=== PATIENT | female | born 1955 | race Caucasian/White ===

== ENCOUNTER 2017-11-10 14:08 | Inpatient (IN) | payer MEDICARE ==
[~2017-11-10] VITALS: Ht 172.7 cm; Wt 99.9 kg
[2017-11-10 15:07] LABS: BASO % 0 % (0-3); EOS # 0.1 x10^3/uL (0.0-0.7); EOS % 1 % (0-3); HEMATOCRIT 36.5 % (36.0-47.0); HEMOGLOBIN 12.3 g/dL (12.0-15.5); LYMPH # 2.5 x10^3/uL (1.0-4.8); LYMPH % 26 % (24-48); MEAN CORPUSCULAR HEMOGLOBIN 30 pg (25-35); MEAN CORPUSCULAR HGB CONC 34 g/dL (31-37); MEAN CORPUSCULAR VOLUME 88 fL (79-100); MONO # 0.6 x10^3/uL (0.0-1.1); MONO % 6 % (0-9); NEUT # 6.7 x10^3uL (1.8-7.7); NEUT % 68 % (31-73); PLATELET COUNT 219 x10^3/uL (140-400); RED BLOOD COUNT 4.15 x10^6/uL (3.50-5.40); WHITE BLOOD COUNT 9.9 x10^3/uL (4.0-11.0)
[2017-11-10 15:16] LABS: ALBUMIN 3.4 g/dL (3.4-5.0); CALCIUM 8.7 mg/dL (8.5-10.1); GFR 56.7; MAGNESIUM 2.1 mg/dL (1.8-2.4); POTASSIUM 4.2 mmol/L (3.5-5.1); TOTAL BILIRUBIN 0.4 mg/dL (0.2-1.0); TOTAL PROTEIN 6.7 g/dL (6.4-8.2)
--- NOTE | 2017-11-10 15:40 | PHYS DOC ---
Past History Past Medical History: No Pertinent History, Dementia, Depression, High Cholesterol, Hypertension Past Surgical History: No Surgical History Smoking: Non-smoker Alcohol Use: None Drug Use: None Adult General Chief Complaint Chief Complaint: PSYCH EVALUATION HPI HPI 61-year-old female patient presented of the testicle with history of dementia and multiple medical problems brought in for medical clearance. Patient had aggressive behavior and appetite and other staff and resident of care home and her primary care physician decided to send her to [facility]. Patient is not able to give history Review of Systems Review of Systems Unable to obtain because of dementia and uncooperative patient Allergies Allergies Allergies Coded Allergies Type Severity Reaction Last Updated Verified No Known Drug Allergies 11/10/17 No Physical Exam Physical Exam Constitutional: Well nourished, no acute distress, non-toxic appearance. [] HENT: Normocephalic, atraumatic, bilateral external ears normal, oropharynx moist, no oral exudates, nose normal. [] Eyes: PERRLA, EOMI, conjunctiva normal, no discharge. [] Neck: Normal range of motion, no tenderness, supple, no stridor. [] Cardiovascular:Heart rate regular rhythm, no murmur [] Lungs & Thorax: Bilateral breath sounds clear to auscultation [] Abdomen: Bowel sounds normal, soft, no tenderness, no masses, no pulsatile masses. [] Skin: Warm, dry, no erythema, no rash. [] Back: No tenderness, no CVA tenderness. [] Extremities: No tenderness, no cyanosis, no clubbing, ROM intact, no edema. [] Neurologic: Alert, normal motor function, no focal deficits noted. [] Psychologic: Says no to all of the questions, noncooperative Current Patient Data Vital Signs Vital Signs Date Time Temp Pulse Resp B/P (MAP) Pulse Ox O2 Delivery O2 Flow Rate FiO2 11/10/17 14:41 97.8 65 98 Room Air Lab Results Laboratory Tests Test 11/10/17 14:25 White Blood Count 9.9 x10^3/uL (4.0-11.0) Red Blood Count 4.15 x10^6/uL (3.50-5.40) Hemoglobin 12.3 g/dL (12.0-15.5) Hematocrit 36.5 % (36.0-47.0) Mean Corpuscular Volume 88 fL (79-100) Mean Corpuscular Hemoglobin 30 pg (25-35) Mean Corpuscular Hemoglobin Concent 34 g/dL (31-37) Red Cell Distribution Width 14.0 % (11.5-14.5) Platelet Count 219 x10^3/uL (140-400) Neutrophils (%) (Auto) 68 % (31-73) Lymphocytes (%) (Auto) 26 % (24-48) Monocytes (%) (Auto) 6 % (0-9) Eosinophils (%) (Auto) 1 % (0-3) Basophils (%) (Auto) 0 % (0-3) Neutrophils # (Auto) 6.7 x10^3uL (1.8-7.7) Lymphocytes # (Auto) 2.5 x10^3/uL (1.0-4.8) Monocytes # (Auto) 0.6 x10^3/uL (0.0-1.1) Eosinophils # (Auto) 0.1 x10^3/uL (0.0-0.7) Basophils # (Auto) 0.0 x10^3/uL (0.0-0.2) Sodium Level 143 mmol/L (136-145) Potassium Level 4.2 mmol/L (3.5-5.1) Chloride Level 106 mmol/L (98-107) Carbon Dioxide Level 29 mmol/L (21-32) Anion Gap 8 (6-14) Blood Urea Nitrogen 17 mg/dL (7-20) Creatinine 1.0 mg/dL (0.6-1.0) Estimated GFR (Cockcroft-Gault) 56.7 BUN/Creatinine Ratio 17 (6-20) Glucose Level 92 mg/dL (70-99) Calcium Level 8.7 mg/dL (8.5-10.1) Magnesium Level 2.1 mg/dL (1.8-2.4) Total Bilirubin 0.4 mg/dL (0.2-1.0) Aspartate Amino Transferase (AST) 19 U/L (15-37) Alanine Aminotransferase (ALT) 31 U/L (14-59) Alkaline Phosphatase 109 U/L (46-116) Total Protein 6.7 g/dL (6.4-8.2) Albumin 3.4 g/dL (3.4-5.0) Albumin/Globulin Ratio 1.0 (1.0-1.7) EKG EKG [Cage interpreted by me. EKG at 1449 showed normal sinus rhythm at 67, no ST and T-wave abnormality, normal [place] and QT intervals] Radiology/Procedures Radiology/Procedures [] Course & Med Decision Making Course & Med Decision Making Pertinent Labs reviewed. (See chart for details) Social patient in ER showed 61-year-old female patient sent to ER for medical clearance for psych admission. Patient was uncooperative without any distress. Patient moved all extremities and able to talk but answered no to all of the question. Labs and EKG was unremarkable except for UTI. One dose of Bactrim in ER was given. [] Dragon Disclaimer Dragon Disclaimer This electronic medical record was generated, in whole or in part, using a voice recognition dictation system. Departure Departure: Impression: Primary Impression: Medical clearance for psychiatric admission Additional Impression: UTI (urinary tract infection) Disposition: 02 XFER T-[facility] (At 1654) Condition: STABLE Referrals: TYLER TRENT DO (PCP) Problem Qualifiers JESSICA GOMEZ MD Nov 10, 2017 15:40
[2017-11-10 16:19] LABS: BACTERIA,URINE 0 /HPF (0-FEW); BILIRUBIN,URINE NEG (NEG); CLARITY,URINE CLEAR; COLOR,URINE STRAW; GLUCOSE,URINE NEG (NEG); NITRITE,URINE NEG (NEG); SQUAMOUS EPITHELIAL CELL,UR FEW /LPF; UROBILINOGEN,URINE 2 mg/dL (0.2 mg/dL)
--- NOTE | 2017-11-10 16:26 | EKG ---
[address] [address] Test Date: 2017-11-10 Test Time: 14:49:53 Pat Name: BRENDA FIELD Department: Room: Gender: F [employer] Operations Agent: STEPHON : 1955 Requested By: JESSICA GOMEZ Order Number: [id number] Reading MD: Luis Chaudhary Measurements Intervals Grant Rate: 67 P: 41 LA: 176 QRS: 9 QRSD: 76 T: 24 QT: 392 QTc: 417 Interpretive Statements SINUS RHYTHM NORMAL ECG Electronically Signed On 11-19-2017 16:40:05 MECHANICAL TEST TECHNICIAN by Luis Chaudhary
[2017-11-10] MEDS ORDERED: SMZ/TMP 800/160MG TABLET. PO ONE ×2 (16:56→17:00)
[2017-11-10 17:30] VITALS: BP 113/64
[2017-11-10] MEDS ORDERED: ACETAMINOPHEN 325 MG TABLET PO PRN ×3 (17:30→18:30)
[2017-11-10] MEDS ORDERED: METHYL SALICYLATE/MENTHOL TOPICAL OINTMENT 29GM TUBE. TP PRN (17:30)
[2017-11-10] MEDS ORDERED: MAGNESIUM HYDROXIDE 2,400 MG/30 ML ORAL.SUSP. PO PRN (17:30)
[2017-11-10] MEDS ORDERED: MAG HYDROX/AL HYDROX/SIMETH 30 ML ORAL.SUSP PO PRN (17:30)
[2017-11-10] MEDS ORDERED: LISI-334 PO (17:43)
[2017-11-10] MEDS ORDERED: CITA40TA12 PO (17:43)
[2017-11-10] MEDS ORDERED: DONE10TA7 PO (17:43)
[2017-11-10] MEDS ORDERED: MEMA10TA PO (17:43)
[2017-11-10] MEDS ORDERED: ATOR10TA60 PO (17:43)
[2017-11-10] MEDS ORDERED: MIRT15TA3 PO (17:43)
[2017-11-10] MEDS ORDERED: BUSP10TA PO (17:43)
[2017-11-10] MEDS ORDERED: LORA0.5T96 PO (17:49)
[2017-11-10] MEDS ORDERED: MENT3.5O TP (17:49)
[2017-11-10] MEDS ORDERED: ACET325T9 PO (17:49)
--- NOTE | 2017-11-10 18:51 | PDOC ---
Exam Note: Saeed Note: Please also refer to the separate dictated note~for this date of service dictated separately.~Patient seen individually. Discussed the patient with Nursing staff reviewed the chart.~Reviewed interim history and current functioning. Reviewed vital signs,~Labs/ Radiology~and current medications noted below. Continue current treatment with the changes noted in the dictated addendum note Assessment: Vital Signs: Vital Signs Date Time Temp Pulse Resp B/P (MAP) Pulse Ox O2 Delivery O2 Flow Rate FiO2 11/10/17 17:30 97.8 73 18 113/64 (80) 96 11/10/17 16:37 Room Air Labs: Laboratory Tests Test 11/10/17 14:25 11/10/17 15:26 White Blood Count 9.9 x10^3/uL (4.0-11.0) Red Blood Count 4.15 x10^6/uL (3.50-5.40) Hemoglobin 12.3 g/dL (12.0-15.5) Hematocrit 36.5 % (36.0-47.0) Mean Corpuscular Volume 88 fL (79-100) Mean Corpuscular Hemoglobin 30 pg (25-35) Mean Corpuscular Hemoglobin Concent 34 g/dL (31-37) Red Cell Distribution Width 14.0 % (11.5-14.5) Platelet Count 219 x10^3/uL (140-400) Neutrophils (%) (Auto) 68 % (31-73) Lymphocytes (%) (Auto) 26 % (24-48) Monocytes (%) (Auto) 6 % (0-9) Eosinophils (%) (Auto) 1 % (0-3) Basophils (%) (Auto) 0 % (0-3) Neutrophils # (Auto) 6.7 x10^3uL (1.8-7.7) Lymphocytes # (Auto) 2.5 x10^3/uL (1.0-4.8) Monocytes # (Auto) 0.6 x10^3/uL (0.0-1.1) Eosinophils # (Auto) 0.1 x10^3/uL (0.0-0.7) Basophils # (Auto) 0.0 x10^3/uL (0.0-0.2) Sodium Level 143 mmol/L (136-145) Potassium Level 4.2 mmol/L (3.5-5.1) Chloride Level 106 mmol/L (98-107) Carbon Dioxide Level 29 mmol/L (21-32) Anion Gap 8 (6-14) Blood Urea Nitrogen 17 mg/dL (7-20) Creatinine 1.0 mg/dL (0.6-1.0) Estimated GFR (Cockcroft-Gault) 56.7 BUN/Creatinine Ratio 17 (6-20) Glucose Level 92 mg/dL (70-99) Calcium Level 8.7 mg/dL (8.5-10.1) Magnesium Level 2.1 mg/dL (1.8-2.4) Total Bilirubin 0.4 mg/dL (0.2-1.0) Aspartate Amino Transferase (AST) 19 U/L (15-37) Alanine Aminotransferase (ALT) 31 U/L (14-59) Alkaline Phosphatase 109 U/L (46-116) Total Protein 6.7 g/dL (6.4-8.2) Albumin 3.4 g/dL (3.4-5.0) Albumin/Globulin Ratio 1.0 (1.0-1.7) Urine Collection Type U cath Urine Color Straw Urine Clarity Clear Urine pH 5.5 Urine Specific Evans 1.015 Urine Protein Neg (NEG-TRACE) Urine Glucose (UA) Neg mg/dL (NEG) Urine Ketones (Stick) Neg mg/dL (NEG) Urine Blood Mod (NEG) Urine Nitrite Neg (NEG) Urine Bilirubin Neg (NEG) Urine Urobilinogen Dipstick 2 mg/dL (0.2 mg/dL) Urine Leukocyte Esterase Small (NEG) Urine RBC 6-10 /HPF (0-2) Urine WBC 11-20 /HPF (0-4) Urine Squamous Epithelial Cells Few /LPF Urine Bacteria 0 /HPF (0-FEW) Urine Mucus Slight /LPF Current Medications: Meds: Current Medications Trimethoprim/ Sulfamethoxazole (Bactrim Ds) 1 tab 1X ONCE PO Last administered on 11/10/17t 16:57; Start 11/10/17 at 17:00; Stop 11/10/17 at 17 :01; Status DC Trimethoprim/ Sulfamethoxazole (Bactrim Ds) 1 tab STK-MED ONCE PO ; Start 11/10 at 16:56; Stop 11/10/17 at 16:57; Status DC Acetaminophen (Tylenol) 650 mg PRN Q6HRS PRN PO PAIN / TEMP; Start 11/10/17 at 17:30 Multi-Ingredient Ointment (Analgesic [place]) 1 lian PRN QID PRN TP MUSCLE PAIN; Start 11/10/17 at 17:30 Al Hydroxide/Mg Hydroxide (Mylanta Plus Xs) 15 ml PRN AFTMEALHC PRN PO DYSPEPSIA; Start 11/10/17 at 17:30 Magnesium Hydroxide (Milk Of Magnesia) 2,400 mg PRN QHS PRN PO CONSTIPATION; Start 11/10/17 at 17:30 Acetaminophen (Tylenol) take 1-2 tablets PRN ... PRN QID PRN PO PAIN; Start at 18:00; Stop 11/10/17 at 18:24; Status DC Atorvastatin Calcium (Lipitor) 10 mg QHS PO ; Start 11/10/17 at 21:00 Buspirone HCl (Buspar) 10 mg BID PO ; Start 11/10/17 at 21:00 Donepezil HCl (Aricept) 10 mg DAILY PO ; Start 11/11/17 at 09:00 Lisinopril (Prinivil) 20 mg DAILY PO ; Start 11/11/17 at 09:00 Lorazepam (Ativan) 0.5 mg PRN Q6HRS PRN PO AGITATION; Start 11/10/17 at 18:00 Memantine (Namenda) 10 mg BID PO ; Start 11/10/17 at 21:00 Mirtazapine (Remeron) 15 mg QHS PO ; Start 11/10/17 at 21:00 Citalopram Hydrobromide (CeleXA) 40 mg DAILY PO ; Start 11/11/17 at 09:00; Stop 11/11/17 at 09:00; Status DC Acetaminophen (Tylenol) 325 mg PRN Q6HRS PRN PO PAIN; Start 11/10/17 at 18:30 Sertraline HCl (Zoloft) 50 mg DAILY PO ; Start 11/11/17 at 09:00; Status UNV Active Scripts Active Reported Ativan (Lorazepam) 0.5 Mg Tablet 0.5 Mg PO PRN Q6HRS PRN Calmoseptine Ointment (Menthol/Zinc Oxide) 3.5 Gm Oint.pack 3.5 Gm TP PRN Tylenol (Acetaminophen) 325 Mg Tablet 1-2 Tab PO PRN QID PRN Mirtazapine 15 Mg Tablet 15 Mg PO QHS Namenda (Memantine Hcl) 10 Mg Tablet 10 Mg PO BID Buspirone Hcl 10 Mg Tablet 10 Mg PO BID Lisinopril 20 Mg Tablet 20 Mg PO DAILY Donepezil Hcl 10 Mg Tablet 10 Mg PO DAILY Celexa (Citalopram Hydrobromide) 40 Mg Tablet 40 Mg PO DAILY Atorvastatin Calcium 10 Mg Tablet 10 Mg PO QHS I have reviewed the current psychotropics carefully including drug interactions. Risk benefit ratio favors no change other than as noted in my dictated progress note. Diagnosis: Problems: (1) Anxiety disorder (2) Dementia of the Alzheimer's type with early onset with behavioral disturbance (3) Dementia in Alzheimer's disease with delusions (4) Dementia, vascular, with depression (5) Dementia, vascular, with delusions (6) Impulse control disorder JAKUB MURRAY MD Nov 10, 2017 18:51
--- NOTE | 2017-11-10 19:14 | HP ---
ADMIT DATE: 11/10/2017 PSYCHIATRIC ADMISSION HISTORY AND EVALUATION This note covers elements not covered in my initial note 11/10/2017. IDENTIFYING DATA: The patient is a 61-year-old female referred to us from [facility] where she has been residing for about 3 months. The patient is referred by her primary care physician, Leonardo Patterson DO, and psychiatrist, Mariah Moore MD, on account of worsening aggression, yelling, slapping people after she ripped a mattress off the bed. She is cursing, slapping herself, refusing medications, hitting people around her, totally unprovoked. Symptoms have been worsening for about 4 days. She has failed outpatient psychiatric intervention with Dr. Moore since 06/2017, referred for inpatient psychiatric stabilization. CHIEF COMPLAINT: "No." The patient is extremely confused, oriented, perhaps to herself, unable to tell me even her last name though she responded to Leydi. HISTORY OF PRESENT ILLNESS: The patient has a history of early onset dementia, but past worked up on this is unclear. She has been at an apartment initially, but for the past 3 months she has been at the nursing facility. As noted, behaviors have been worsening for the past 4 days with marked mood lability, paranoia, delusions, agitation, aggression sleep and appetite changes. No clear suicidal or homicidal ideation, no clear history of bipolar disorder. PAST PSYCHIATRIC HISTORY: As above. MEDICAL HISTORY: Hyperlipidemia, hypertension. ACCU-CHEKS: None. CODE STATUS: DNR. DRUG ALLERGIES: Negative. DIET: Regular, ambulates up ad ron. CURRENT PSYCHOTROPICS: Celexa 40 mg a day, Aricept 10 mg a day, BuSpar 10 mg b.i.d., Namenda 10 mg b.i.d., Remeron 15 mg at bedtime, Ativan 0.5 mg q. 6 hours p.r.n. anxiety. FAMILY HISTORY: Noncontributory. SOCIAL HISTORY: No alcohol, drug abuse, physical, sexual or elder abuse history is noted. Not known to be a perpetrator. Reaction to hospitalization, the patient is oblivious of this assets, stable living at the above facility, supportive family. MENTAL STATUS EXAMINATION: The patient was seen individually evening of 11/10/2017. The patient is oriented to herself, rambling in her speech. Insight, judgment, recent and remote memory, attention, concentration, fund of knowledge poor consistent with her diagnosis. She appears somewhat depressed, withdrawn, suspicious at times, but no active hallucinations noted. IMPRESSION: Major neurocognitive disorder, Alzheimer, vascular with depression, delusion, behavioral disturbance; anxiety disorder, unspecified; impulse control disorder, unspecified. PLAN: Admit to Geropsychiatry Unit at [facility], request Dr. Benavides and Dr. Greer to follow the patient medically. We will have a Neurology consult, Dr. Gee, given the patient's young age, to see if there is any reversible cause of her dementia. We will have a CT head as well. Reportedly, according to the sister, the patient has had seizure-like episodes on Seroquel and we will try and avoid this. Change Celexa to Zoloft 50 mg a day. Continue Aricept, BuSpar, Namenda, Remeron along with the Ativan p.r.n. Consider Depakote as a mood stabilizer. Further changes in psychotropics will be determined depending on how she responds to the initial changes. MAN Ke MURRAY MD DR: CHRISTINA/elizabeth JOB#: [id number] / [id number]
[2017-11-10] MEDS: ATORVASTATIN CALCIUM 10 MG TABLET. PO SCH (20:09)
[2017-11-10] MEDS: MIRTAZAPINE 15 MG TABLET PO SCH (20:09)
[2017-11-10] MEDS: MEMANTINE 10 MG TABLET. PO SCH (20:09)
[2017-11-10] MEDS: busPIRone 10 MG TABLET. PO SCH (20:09)
[2017-11-11 05:43] VITALS: BP 125/88
[2017-11-11] MEDS: LORazepam 0.5 MG TABLET PO PRN (06:22)
[2017-11-11 07:37] LABS: BASO # 0.1 x10^3/uL (0.0-0.2); BASO % 1 % (0-3); EOS % 1 % (0-3); HEMATOCRIT 39.9 % (36.0-47.0); HEMOGLOBIN 13.2 g/dL (12.0-15.5); LYMPH # 1.7 x10^3/uL (1.0-4.8); LYMPH % 17 % (24-48); MEAN CORPUSCULAR HEMOGLOBIN 29 pg (25-35); MEAN CORPUSCULAR HGB CONC 33 g/dL (31-37); MEAN CORPUSCULAR VOLUME 89 fL (79-100); MONO # 0.5 x10^3/uL (0.0-1.1); MONO % 5 % (0-9); NEUT # 7.4 x10^3uL (1.8-7.7); NEUT % 76 % (31-73); PLATELET COUNT 229 x10^3/uL (140-400); RED BLOOD COUNT 4.51 x10^6/uL (3.50-5.40); RED CELL DISTRIBUTION WIDTH 14.2 % (11.5-14.5); WHITE BLOOD COUNT 9.7 x10^3/uL (4.0-11.0)
[2017-11-11 07:56] LABS: ALBUMIN 3.8 g/dL (3.4-5.0); ALBUMIN/GLOBULIN RATIO 1.1 (1.0-1.7); CREATININE 1.1 mg/dL (0.6-1.0); GFR 50.8; MAGNESIUM 2.1 mg/dL (1.8-2.4); POTASSIUM 3.8 mmol/L (3.5-5.1); TOTAL BILIRUBIN 0.5 mg/dL (0.2-1.0); TOTAL PROTEIN 7.3 g/dL (6.4-8.2)
--- NOTE | 2017-11-11 08:08 | RAD ---
Indication: Dementia. Axial imaging through the brain was performed without contrast. No prior studies are available for comparison. Ventricular size and sulcal pattern are prominent consistent with cerebral atrophy. No sulcal effacement is seen. There is no midline shift. No acute intra-axial or extra-axial hemorrhage is detected. Cisterns are patent. The visualized paranasal sinuses are clear. Impression: Cerebral atrophy. No acute intracranial process is detected. PQRS Compliance Statement: One or more of the following individualized dose reduction techniques were utilized for this examination: 1. Automated exposure control 2. Adjustment of the mA and/or kV according to patient size 3. Use of iterative reconstruction technique
[2017-11-11] MEDS ORDERED: CITALOPRAM 20 MG TABLET. PO SCH (09:00)
[2017-11-11] MEDS: DONEPEZIL HCL 10 MG TABLET PO SCH (09:49)
[2017-11-11] MEDS: busPIRone 10 MG TABLET. PO SCH ×2 (09:49→19:07)
[2017-11-11] MEDS: MEMANTINE 10 MG TABLET. PO SCH ×2 (09:49→19:07)
[2017-11-11] MEDS: SERTRALINE 50 MG TABLET. PO SCH (09:50)
[2017-11-11] MEDS: LISINOPRIL 20 MG TABLET PO SCH (09:50)
[2017-11-11 14:01] LABS: THYROID STIM HORMONE (TSH) 2.008 uIU/mL (0.358-3.740)
[2017-11-11 15:56] VITALS: BP 107/63
[2017-11-11] MEDS ORDERED: CHOLECALCIFEROL (VITAMIN D3) 50,000 UNIT CAPSULE PO SCH (18:00)
[2017-11-11] MEDS: MIRTAZAPINE 15 MG TABLET PO SCH (19:07)
[2017-11-11] MEDS: ATORVASTATIN CALCIUM 10 MG TABLET. PO SCH (19:07)
--- NOTE | 2017-11-11 20:02 | PDOC ---
Exam Note: Saeed Note: Please also refer to the separate dictated note~for this date of service dictated separately.~Patient seen individually. Discussed the patient with Nursing staff reviewed the chart.~Reviewed interim history and current functioning. Reviewed vital signs,~Labs/ Radiology~and current medications noted below. Continue current treatment with the changes noted in the dictated addendum note Assessment: Vital Signs: Vital Signs Date Time Temp Pulse Resp B/P (MAP) Pulse Ox O2 Delivery O2 Flow Rate FiO2 11/11/17 15:56 98.6 84 20 107/63 (78) 96 Room Air I&O Intake and Output 11/11/17 07:00 Intake Total 300 ml Balance 300 ml Intake Oral 300 ml # Bowel Movements 1 Labs: Laboratory Tests Test 11/11/17 07:20 White Blood Count 9.7 x10^3/uL (4.0-11.0) Red Blood Count 4.51 x10^6/uL (3.50-5.40) Hemoglobin 13.2 g/dL (12.0-15.5) Hematocrit 39.9 % (36.0-47.0) Mean Corpuscular Volume 89 fL (79-100) Mean Corpuscular Hemoglobin 29 pg (25-35) Mean Corpuscular Hemoglobin Concent 33 g/dL (31-37) Red Cell Distribution Width 14.2 % (11.5-14.5) Platelet Count 229 x10^3/uL (140-400) Neutrophils (%) (Auto) 76 % (31-73) H Lymphocytes (%) (Auto) 17 % (24-48) L Monocytes (%) (Auto) 5 % (0-9) Eosinophils (%) (Auto) 1 % (0-3) Basophils (%) (Auto) 1 % (0-3) Neutrophils # (Auto) 7.4 x10^3uL (1.8-7.7) Lymphocytes # (Auto) 1.7 x10^3/uL (1.0-4.8) Monocytes # (Auto) 0.5 x10^3/uL (0.0-1.1) Eosinophils # (Auto) 0.0 x10^3/uL (0.0-0.7) Basophils # (Auto) 0.1 x10^3/uL (0.0-0.2) Sodium Level 143 mmol/L (136-145) Potassium Level 3.8 mmol/L (3.5-5.1) Chloride Level 104 mmol/L (98-107) Carbon Dioxide Level 30 mmol/L (21-32) Anion Gap 9 (6-14) Blood Urea Nitrogen 17 mg/dL (7-20) Creatinine 1.1 mg/dL (0.6-1.0) H Estimated GFR (Cockcroft-Gault) 50.8 BUN/Creatinine Ratio 15 (6-20) Glucose Level 114 mg/dL (70-99) H Calcium Level 9.0 mg/dL (8.5-10.1) Magnesium Level 2.1 mg/dL (1.8-2.4) Total Bilirubin 0.5 mg/dL (0.2-1.0) Aspartate Amino Transferase (AST) 25 U/L (15-37) Alanine Aminotransferase (ALT) 38 U/L (14-59) Alkaline Phosphatase 114 U/L (46-116) Total Protein 7.3 g/dL (6.4-8.2) Albumin 3.8 g/dL (3.4-5.0) Albumin/Globulin Ratio 1.1 (1.0-1.7) Triglycerides Level 91 mg/dL (0-150) Cholesterol Level 151 mg/dL (0-200) LDL Cholesterol, Calculated 86 mg/dL (0-100) VLDL Cholesterol, Calculated 18 mg/dL (0-40) Non-HDL Cholesterol Calculated 104 mg/dL (0-129) HDL Cholesterol 47 mg/dL (40-60) Cholesterol/HDL Ratio 3.0 25-Hydroxy Vitamin D Total 20.5 ng/mL (30-100) L Thyroid Stimulating Hormone (TSH) 2.008 uIU/mL (0.358-3.740) Current Medications: Meds: Current Medications Trimethoprim/ Sulfamethoxazole (Bactrim Ds) 1 tab 1X ONCE PO Last administered on 11/10/17t 16:57; Start 11/10/17 at 17:00; Stop 11/10/17 at 17 :01; Status DC Trimethoprim/ Sulfamethoxazole (Bactrim Ds) 1 tab STK-MED ONCE PO ; Start 11/10 at 16:56; Stop 11/10/17 at 16:57; Status DC Acetaminophen (Tylenol) 650 mg PRN Q6HRS PRN PO PAIN / TEMP; Start 11/10/17 at 17:30 Multi-Ingredient Ointment (Analgesic [place]) 1 lian PRN QID PRN TP MUSCLE PAIN; Start 11/10/17 at 17:30 Al Hydroxide/Mg Hydroxide (Mylanta Plus Xs) 15 ml PRN AFTMEALHC PRN PO DYSPEPSIA; Start 11/10/17 at 17:30 Magnesium Hydroxide (Milk Of Magnesia) 2,400 mg PRN QHS PRN PO CONSTIPATION; Start 11/10/17 at 17:30 Acetaminophen (Tylenol) take 1-2 tablets PRN ... PRN QID PRN PO PAIN; Start at 18:00; Stop 11/10/17 at 18:24; Status DC Atorvastatin Calcium (Lipitor) 10 mg QHS PO Last administered on 11/11/17 19: 07; Start 11/10/17 at 21:00 Buspirone HCl (Buspar) 10 mg BID PO Last administered on 11/11/17 19:07; Start 11/10/17 at 21:00 Donepezil HCl (Aricept) 10 mg DAILY PO Last administered on 11/11/17 09:49; Start 11/11/17 at 09:00 Lisinopril (Prinivil) 20 mg DAILY PO Last administered on 11/11/17 09:50; Start 11/11/17 at 09:00 Lorazepam (Ativan) 0.5 mg PRN Q6HRS PRN PO AGITATION Last administered on 11/11 06:22; Start 11/10/17 at 18:00 Memantine (Namenda) 10 mg BID PO Last administered on 11/11/17 19:07; Start 11/10/17 at 21:00 Mirtazapine (Remeron) 15 mg QHS PO Last administered on 11/11/17 19:07; Start 11/10/17 at 21:00 Citalopram Hydrobromide (CeleXA) 40 mg DAILY PO ; Start 11/11/17 at 09:00; Stop 11/11/17 at 09:00; Status DC Acetaminophen (Tylenol) 325 mg PRN Q6HRS PRN PO PAIN; Start 11/10/17 at 18:30 Sertraline HCl (Zoloft) 50 mg DAILY PO Last administered on 11/11/17t 09:50; Start 11/11/17 at 09:00 Vitamin D (Vitamin D3) 50,000 unit WEEKLY PO ; Start 11/11/17 at 18:00; Stop 11/11/17 at 18:20; Status DC Vitamin D (Vitamin D3) 50,000 unit WEEKLY PO ; Start 11/12/17 at 09:00 Active Scripts Active Reported Ativan (Lorazepam) 0.5 Mg Tablet 0.5 Mg PO PRN Q6HRS PRN Calmoseptine Ointment (Menthol/Zinc Oxide) 3.5 Gm Oint.pack 3.5 Gm TP PRN Tylenol (Acetaminophen) 325 Mg Tablet 1-2 Tab PO PRN QID PRN Mirtazapine 15 Mg Tablet 15 Mg PO QHS Namenda (Memantine Hcl) 10 Mg Tablet 10 Mg PO BID Buspirone Hcl 10 Mg Tablet 10 Mg PO BID Lisinopril 20 Mg Tablet 20 Mg PO DAILY Donepezil Hcl 10 Mg Tablet 10 Mg PO DAILY Celexa (Citalopram Hydrobromide) 40 Mg Tablet 40 Mg PO DAILY Atorvastatin Calcium 10 Mg Tablet 10 Mg PO QHS I have reviewed the current psychotropics carefully including drug interactions. Risk benefit ratio favors no change other than as noted in my dictated progress note. Diagnosis: Problems: (1) Anxiety disorder (2) Impulse control disorder (3) Dementia, vascular, with depression (4) Dementia, vascular, with delusions (5) Dementia in Alzheimer's disease with delusions (6) Dementia of the Alzheimer's type with early onset with behavioral disturbance JAKUB MURRAY MD Nov 11, 2017 20:02
[2017-11-11 20:07] LABS: T3 TOTAL 114 ng/dL (71-180); THYROXINE 7.1 ug/dL (4.5-12.0)
[2017-11-12 03:16] LABS: HEMOGLOBIN A1C 5.2 % (4.8-5.6)
[2017-11-12 05:41] VITALS: BP 115/72
[2017-11-12] MEDS: busPIRone 10 MG TABLET. PO SCH ×2 (07:35→19:26)
[2017-11-12] MEDS: MEMANTINE 10 MG TABLET. PO SCH ×2 (07:36→19:26)
[2017-11-12] MEDS: SERTRALINE 50 MG TABLET. PO SCH (07:36)
[2017-11-12] MEDS: DONEPEZIL HCL 10 MG TABLET PO SCH (07:36)
[2017-11-12] MEDS: LISINOPRIL 20 MG TABLET PO SCH (07:36)
[2017-11-12] MEDS: CHOLECALCIFEROL (VITAMIN D3) 50,000 UNIT CAPSULE PO SCH (07:37)
--- NOTE | 2017-11-12 12:47 | CONS ---
DATE OF CONSULTATION: REASON FOR CONSULTATION: Medical management. HISTORY OF PRESENT ILLNESS: The patient is a 61-year-old female patient, a resident at [facility] who was admitted to [facility] on account of being aggressive, yelling, slapping people, ripped mattresses off the bed, cursing, slapping self, refusing medication, hitting people, unprovoked; all this started about 4 days ago and all this in a background of dementia. She is here for inpatient psychiatric stabilization. The patient is alert, awake, her answer seemed to be at times appropriate and most time seemed to be inappropriate. PAST MEDICAL HISTORY: Significant for hypertension, hyperlipidemia. PAST PSYCHIATRIC HISTORY: Significant for anxiety, depression, and dementia. PAST SURGICAL HISTORY: Unremarkable. ALLERGIES: She has no known drug allergies. MEDICATIONS: She is currently on the following medication, acetaminophen 650 mg 4 times a day, atorvastatin 10 mg at bedtime, buspirone 10 mg b.i.d., citalopram hydrobromide for Celexa 40 mg once a day, Aricept 10 mg once a day, lisinopril 20 mg once a day, lorazepam 0.5 mg every 6 hours, Namenda 10 mg twice a day and mirtazapine 15 mg at bedtime. FAMILY HISTORY: Noncontributory. SOCIAL HISTORY: She used to live with her sister with caregivers; however, she is now residing at [facility]. She apparently does not smoke, drink alcohol or use recreational drugs. REVIEW OF SYSTEMS: Unobtainable. PHYSICAL EXAMINATION: GENERAL: When I examined her this afternoon, she was sitting comfortably in her chair, eating her supper without difficulty. There were no pallor, jaundice, cyanosis, or thyromegaly. No jugular venous distension. No limb edema. VITAL SIGNS: Her heart rate was 84, blood pressure was 107/63, temperature was 98.6, respiratory rate was 20, and oxygen saturation was 96% on room air. The rest of clinical exams seemed to be unremarkable. LABORATORY DATA: Her lab work showed her serum sodium to be 143, potassium 4.2, chloride 106, bicarbonate 29, anion gap of 8, BUN 17, creatinine 1, estimated GFR was 57 mL per minute. Her glucose was 92, calcium was 8.7, magnesium 2.1. Total bilirubin, AST, ALT, alkaline phosphatase were normal. Total protein was 6.7, albumin was 3.4. Her white cell count was 9900, hemoglobin 12.3, hematocrit 36.5, MCV 88 and platelet count 219,000 with normal manual differential. Her urinalysis showed the urine was straw colored, clear with a pH of 5.5, specific gravity 1.015. The urine was negative for protein, glucose, ketones, blood, nitrite, small amount of leukocyte esterase. There were 6-10 rbc's, 11-20 wbc's, no bacteria. Her urine culture showed no growth after 18-24 hours. DIAGNOSTIC DATA: Her CT scan of the head without contrast showed the ventricular size and sulcal pattern are prominent, consistent with cerebral atrophy. No sulcal effacement is seen. There is no midline shift, no acute intraaxial or extraaxial hemorrhage detected. Cisterns are patent. The visualized paranasal sinuses are clear. IMPRESSION: In summary, this is a 61-year-old female patient with a past psychiatric history significant for dementia, who is currently residing at [facility] and who was admitted on the account of worsening aggression, yelling, slapping people, after she ripped mattress off the bed. She is cursing, slapping herself, refusing medication, hitting people around her, totally unprovoked. Her symptom has been worsening over the last 4 days and she has failed outpatient psychiatric stabilization and was admitted [facility] for inpatient psychiatric stabilization. Her vital signs are stable. Her lab works are also well within normal range. Her 25-hydroxy vitamin D is low at 20.5 and I did start her on cholecalciferol 50,000 International Units once a week. Her serum iron and total iron binding capacity as well as iron saturation finding consistent with anemia of chronic disease. Urinalysis showed that she has 11-20 wbc's; however, the culture was negative. All in all, the patient seems to be stable medically. I will obviously follow all the pending test and make a necessary recommendation. Thank you, Dr. Simon for allowing me to participate in the care of this patient. HERNANDEZ SQUIRES MD DR: MICHAEL/elizabeth JOB#: [id number] / [id number]
[2017-11-12 16:11] VITALS: BP 118/76
[2017-11-12] MEDS: MIRTAZAPINE 15 MG TABLET PO SCH (19:26)
[2017-11-12] MEDS: ATORVASTATIN CALCIUM 10 MG TABLET. PO SCH (19:26)
[2017-11-12] MEDS: traZODone 50 MG TABLET. PO PRN (19:50)
--- NOTE | 2017-11-12 22:14 | PDOC ---
Exam Note: Saeed Note: Please also refer to the separate dictated note~for this date of service dictated separately.~Patient seen individually. Discussed the patient with Nursing staff reviewed the chart.~Reviewed interim history and current functioning. Reviewed vital signs,~Labs/ Radiology~and current medications noted below. Continue current treatment with the changes noted in the dictated addendum note Assessment: Vital Signs: Vital Signs Date Time Temp Pulse Resp B/P (MAP) Pulse Ox O2 Delivery O2 Flow Rate FiO2 11/12/17 16:11 98.3 75 17 118/76 (90) 99 11/11/17 15:56 Room Air I&O Intake and Output 11/12/17 07:00 Intake Total 780 ml Balance 780 ml Intake Oral 780 ml Current Medications: Meds: Current Medications Trimethoprim/ Sulfamethoxazole (Bactrim Ds) 1 tab 1X ONCE PO Last administered on 11/10/17 16:57; Start 11/10/17 at 17:00; Stop 11/10/17 at 17 :01; Status DC Trimethoprim/ Sulfamethoxazole (Bactrim Ds) 1 tab STK-MED ONCE PO ; Start 11/10 at 16:56; Stop 11/10/17 at 16:57; Status DC Acetaminophen (Tylenol) 650 mg PRN Q6HRS PRN PO PAIN / TEMP; Start 11/10/17 at 17:30 Multi-Ingredient Ointment (Analgesic [place]) 1 lian PRN QID PRN TP MUSCLE PAIN; Start 11/10/17 at 17:30 Al Hydroxide/Mg Hydroxide (Mylanta Plus Xs) 15 ml PRN AFTMEALHC PRN PO DYSPEPSIA; Start 11/10/17 at 17:30 Magnesium Hydroxide (Milk Of Magnesia) 2,400 mg PRN QHS PRN PO CONSTIPATION; Start 11/10/17 at 17:30 Acetaminophen (Tylenol) take 1-2 tablets PRN ... PRN QID PRN PO PAIN; Start at 18:00; Stop 11/10/17 at 18:24; Status DC Atorvastatin Calcium (Lipitor) 10 mg QHS PO Last administered on 11/12/17 19: 26; Start 11/10/17 at 21:00 Buspirone HCl (Buspar) 10 mg BID PO Last administered on 11/12/17 19:26; Start 11/10/17 at 21:00 Donepezil HCl (Aricept) 10 mg DAILY PO Last administered on 11/12/17 07:36; Start 11/11/17 at 09:00 Lisinopril (Prinivil) 20 mg DAILY PO Last administered on 11/12/17 07:36; Start 11/11/17 at 09:00 Lorazepam (Ativan) 0.5 mg PRN Q6HRS PRN PO AGITATION Last administered on 11/11 06:22; Start 11/10/17 at 18:00 Memantine (Namenda) 10 mg BID PO Last administered on 11/12/17 19:26; Start 11/10/17 at 21:00 Mirtazapine (Remeron) 15 mg QHS PO Last administered on 11/12/17 19:26; Start 11/10/17 at 21:00 Citalopram Hydrobromide (CeleXA) 40 mg DAILY PO ; Start 11/11/17 at 09:00; Stop 11/11/17 at 09:00; Status DC Acetaminophen (Tylenol) 325 mg PRN Q6HRS PRN PO PAIN; Start 11/10/17 at 18:30 Sertraline HCl (Zoloft) 50 mg DAILY PO Last administered on 11/12/17 07:36; Start 11/11/17 at 09:00 Vitamin D (Vitamin D3) 50,000 unit WEEKLY PO ; Start 11/11/17 at 18:00; Stop 11/11/17 at 18:20; Status DC Vitamin D (Vitamin D3) 50,000 unit WEEKLY PO Last administered on 11/12/17 07 :37; Start 11/12/17 at 09:00 Trazodone HCl (Desyrel) 50 mg PRN QHS PRN PO INSOMNIA, MAY REPEAT X1 Last administered on 11/12/17 19:50; Start 11/12/17 at 18:00 Active Scripts Active Reported Ativan (Lorazepam) 0.5 Mg Tablet 0.5 Mg PO PRN Q6HRS PRN Calmoseptine Ointment (Menthol/Zinc Oxide) 3.5 Gm Oint.pack 3.5 Gm TP PRN Tylenol (Acetaminophen) 325 Mg Tablet 1-2 Tab PO PRN QID PRN Mirtazapine 15 Mg Tablet 15 Mg PO QHS Namenda (Memantine Hcl) 10 Mg Tablet 10 Mg PO BID Buspirone Hcl 10 Mg Tablet 10 Mg PO BID Lisinopril 20 Mg Tablet 20 Mg PO DAILY Donepezil Hcl 10 Mg Tablet 10 Mg PO DAILY Celexa (Citalopram Hydrobromide) 40 Mg Tablet 40 Mg PO DAILY Atorvastatin Calcium 10 Mg Tablet 10 Mg PO QHS I have reviewed the current psychotropics carefully including drug interactions. Risk benefit ratio favors no change other than as noted in my dictated progress note. Diagnosis: Problems: (1) Anxiety disorder (2) Impulse control disorder (3) Dementia, vascular, with depression (4) Dementia, vascular, with delusions (5) Dementia in Alzheimer's disease with delusions (6) Dementia of the Alzheimer's type with early onset with behavioral disturbance JAKUB MURRAY MD Nov 12, 2017 22:14
[2017-11-13 05:28] VITALS: BP 178/83
[2017-11-13] MEDS: SERTRALINE 50 MG TABLET. PO SCH (07:12)
[2017-11-13] MEDS: DONEPEZIL HCL 10 MG TABLET PO SCH (07:12)
[2017-11-13] MEDS: LISINOPRIL 20 MG TABLET PO SCH (07:12)
[2017-11-13] MEDS: busPIRone 10 MG TABLET. PO SCH ×2 (07:12→19:23)
[2017-11-13] MEDS: MEMANTINE 10 MG TABLET. PO SCH ×2 (07:12→19:23)
--- NOTE | 2017-11-13 09:40 | PN ---
DATE: 11/11/2017 This is a late entry, covers the elements not covered in my initial note, 11/11/2017. SUBJECTIVE: I met with the patient in the evening of 11/11/2017 and staffed at a treatment team meeting with the entire team morning of 11/11/2017. The patient remains confused, oblivious of her surroundings, somewhat abrasive at times. REVIEW OF SYSTEMS: No CV, , pulmonary, eye, ENT system symptoms on review. Reliability poor. MENTAL STATUS EXAM: Oriented to herself. Insight, judgment, recent and remote memory, attention, concentration, fund of knowledge poor, consistent with her diagnosis. She is getting verbally aggressive with another psychotic patient later in the evening, but much of the day, she was oblivious of her surroundings. LABORATORY DATA: Reviewed. IMPRESSION: Major neurocognitive disorder, Alzheimer, vascular with depression, delusion, behavioral disturbance. Rest unchanged. She slept 6-3/4 hours previous evening. Appetite is fair. CT head shows cerebral atrophy, otherwise nothing acute. PLAN: Continue current psychotropics as mentioned in my initial note. May consider Depakote as a mood stabilizer if agitation and aggression resurfaces. JAKUB MRURAY MD DR: CHRISTINA/elizabeth JOB#: [id number] / [id number]
[2017-11-13 15:53] VITALS: BP 119/78
[2017-11-13] MEDS: MIRTAZAPINE 15 MG TABLET PO SCH (19:22)
[2017-11-13] MEDS: ATORVASTATIN CALCIUM 10 MG TABLET. PO SCH (19:23)
--- NOTE | 2017-11-13 21:10 | PDOC ---
Exam Note: Saeed Note: Please also refer to the separate dictated note~for this date of service dictated separately.~Patient seen individually. Discussed the patient with Nursing staff reviewed the chart.~Reviewed interim history and current functioning. Reviewed vital signs,~Labs/ Radiology~and current medications noted below. Continue current treatment with the changes noted in the dictated addendum note Assessment: Vital Signs: Vital Signs Date Time Temp Pulse Resp B/P (MAP) Pulse Ox O2 Delivery O2 Flow Rate FiO2 11/13/17 15:53 98.4 90 18 119/78 (92) 98 Room Air I&O Intake and Output 11/13/17 07:00 Intake Total 960 ml Balance 960 ml Intake Oral 960 ml # Bowel Movements 1 Current Medications: Meds: Current Medications Trimethoprim/ Sulfamethoxazole (Bactrim Ds) 1 tab 1X ONCE PO Last administered on 11/10/17 16:57; Start 11/10/17 at 17:00; Stop 11/10/17 at 17 :01; Status DC Trimethoprim/ Sulfamethoxazole (Bactrim Ds) 1 tab STK-MED ONCE PO ; Start 11/10 at 16:56; Stop 11/10/17 at 16:57; Status DC Acetaminophen (Tylenol) 650 mg PRN Q6HRS PRN PO PAIN / TEMP; Start 11/10/17 at 17:30 Multi-Ingredient Ointment (Analgesic [place]) 1 lian PRN QID PRN TP MUSCLE PAIN; Start 11/10/17 at 17:30 Al Hydroxide/Mg Hydroxide (Mylanta Plus Xs) 15 ml PRN AFTMEALHC PRN PO DYSPEPSIA; Start 11/10/17 at 17:30 Magnesium Hydroxide (Milk Of Magnesia) 2,400 mg PRN QHS PRN PO CONSTIPATION; Start 11/10/17 at 17:30 Acetaminophen (Tylenol) take 1-2 tablets PRN ... PRN QID PRN PO PAIN; Start at 18:00; Stop 11/10/17 at 18:24; Status DC Atorvastatin Calcium (Lipitor) 10 mg QHS PO Last administered on 11/13/17 19: 23; Start 11/10/17 at 21:00 Buspirone HCl (Buspar) 10 mg BID PO Last administered on 11/13/17 19:23; Start 11/10/17 at 21:00 Donepezil HCl (Aricept) 10 mg DAILY PO Last administered on 11/13/17 07:12; Start 11/11/17 at 09:00 Lisinopril (Prinivil) 20 mg DAILY PO Last administered on 11/13/17 07:12; Start 11/11/17 at 09:00 Lorazepam (Ativan) 0.5 mg PRN Q6HRS PRN PO AGITATION Last administered on 11/11 06:22; Start 11/10/17 at 18:00 Memantine (Namenda) 10 mg BID PO Last administered on 11/13/17 19:23; Start 11/10/17 at 21:00 Mirtazapine (Remeron) 15 mg QHS PO Last administered on 11/13/17 19:22; Start 11/10/17 at 21:00 Citalopram Hydrobromide (CeleXA) 40 mg DAILY PO ; Start 11/11/17 at 09:00; Stop 11/11/17 at 09:00; Status DC Acetaminophen (Tylenol) 325 mg PRN Q6HRS PRN PO PAIN; Start 11/10/17 at 18:30 Sertraline HCl (Zoloft) 50 mg DAILY PO Last administered on 11/13/17 07:12; Start 11/11/17 at 09:00 Vitamin D (Vitamin D3) 50,000 unit WEEKLY PO ; Start 11/11/17 at 18:00; Stop 11/11/17 at 18:20; Status DC Vitamin D (Vitamin D3) 50,000 unit WEEKLY PO Last administered on 11/12/17 07 :37; Start 11/12/17 at 09:00 Trazodone HCl (Desyrel) 50 mg PRN QHS PRN PO INSOMNIA, MAY REPEAT X1 Last administered on 11/12/17 19:50; Start 11/12/17 at 18:00 Active Scripts Active Reported Ativan (Lorazepam) 0.5 Mg Tablet 0.5 Mg PO PRN Q6HRS PRN Calmoseptine Ointment (Menthol/Zinc Oxide) 3.5 Gm Oint.pack 3.5 Gm TP PRN Tylenol (Acetaminophen) 325 Mg Tablet 1-2 Tab PO PRN QID PRN Mirtazapine 15 Mg Tablet 15 Mg PO QHS Namenda (Memantine Hcl) 10 Mg Tablet 10 Mg PO BID Buspirone Hcl 10 Mg Tablet 10 Mg PO BID Lisinopril 20 Mg Tablet 20 Mg PO DAILY Donepezil Hcl 10 Mg Tablet 10 Mg PO DAILY Celexa (Citalopram Hydrobromide) 40 Mg Tablet 40 Mg PO DAILY Atorvastatin Calcium 10 Mg Tablet 10 Mg PO QHS I have reviewed the current psychotropics carefully including drug interactions. Risk benefit ratio favors no change other than as noted in my dictated progress note. Diagnosis: Problems: (1) Anxiety disorder (2) Impulse control disorder (3) Dementia, vascular, with depression (4) Dementia, vascular, with delusions (5) Dementia in Alzheimer's disease with delusions (6) Dementia of the Alzheimer's type with early onset with behavioral disturbance JAKUB MURRAY MD Nov 13, 2017 21:10
[2017-11-13] MEDS: traZODone 50 MG TABLET. PO PRN ×2 (21:55→23:05)
[2017-11-14 06:21] VITALS: BP 113/70
[2017-11-14] MEDS: DONEPEZIL HCL 10 MG TABLET PO SCH (07:34)
[2017-11-14] MEDS: busPIRone 10 MG TABLET. PO SCH ×2 (07:34→19:24)
[2017-11-14] MEDS: MEMANTINE 10 MG TABLET. PO SCH ×2 (07:35→19:24)
[2017-11-14] MEDS: LISINOPRIL 20 MG TABLET PO SCH (07:35)
[2017-11-14] MEDS: SERTRALINE 50 MG TABLET. PO SCH (07:35)
[2017-11-14 15:56] VITALS: BP 110/69
[2017-11-14] MEDS: ATORVASTATIN CALCIUM 10 MG TABLET. PO SCH (19:24)
[2017-11-14] MEDS: MIRTAZAPINE 15 MG TABLET PO SCH (19:24)
[2017-11-14] MEDS: traZODone 50 MG TABLET. PO PRN (19:25)
--- NOTE | 2017-11-14 20:12 | PDOC ---
Exam Note: Saeed Note: Please also refer to the separate dictated note~for this date of service dictated separately.~Patient seen individually. Discussed the patient with Nursing staff reviewed the chart.~Reviewed interim history and current functioning. Reviewed vital signs,~Labs/ Radiology~and current medications noted below. Continue current treatment with the changes noted in the dictated addendum note Assessment: Vital Signs: Vital Signs Date Time Temp Pulse Resp B/P (MAP) Pulse Ox O2 Delivery O2 Flow Rate FiO2 11/14/17 15:56 97.3 80 20 110/69 (83) 95 11/13/17 15:53 Room Air I&O Intake and Output 11/14/17 07:00 Intake Total 1080 ml Balance 1080 ml Intake Oral 1080 ml # Bowel Movements 1 Current Medications: Meds: Current Medications Trimethoprim/ Sulfamethoxazole (Bactrim Ds) 1 tab 1X ONCE PO Last administered on 11/10/17 16:57; Start 11/10/17 at 17:00; Stop 11/10/17 at 17 :01; Status DC Trimethoprim/ Sulfamethoxazole (Bactrim Ds) 1 tab STK-MED ONCE PO ; Start 11/10 at 16:56; Stop 11/10/17 at 16:57; Status DC Acetaminophen (Tylenol) 650 mg PRN Q6HRS PRN PO PAIN / TEMP; Start 11/10/17 at 17:30 Multi-Ingredient Ointment (Analgesic [place]) 1 lian PRN QID PRN TP MUSCLE PAIN; Start 11/10/17 at 17:30 Al Hydroxide/Mg Hydroxide (Mylanta Plus Xs) 15 ml PRN AFTMEALHC PRN PO DYSPEPSIA; Start 11/10/17 at 17:30 Magnesium Hydroxide (Milk Of Magnesia) 2,400 mg PRN QHS PRN PO CONSTIPATION; Start 11/10/17 at 17:30 Acetaminophen (Tylenol) take 1-2 tablets PRN ... PRN QID PRN PO PAIN; Start at 18:00; Stop 11/10/17 at 18:24; Status DC Atorvastatin Calcium (Lipitor) 10 mg QHS PO Last administered on 11/14/17 19: 24; Start 11/10/17 at 21:00 Buspirone HCl (Buspar) 10 mg BID PO Last administered on 11/14/17 19:24; Start 11/10/17 at 21:00 Donepezil HCl (Aricept) 10 mg DAILY PO Last administered on 11/14/17 07:34; Start 11/11/17 at 09:00 Lisinopril (Prinivil) 20 mg DAILY PO Last administered on 11/14/17 07:35; Start 11/11/17 at 09:00 Lorazepam (Ativan) 0.5 mg PRN Q6HRS PRN PO AGITATION Last administered on 11/11 06:22; Start 11/10/17 at 18:00 Memantine (Namenda) 10 mg BID PO Last administered on 11/14/17 19:24; Start 11/10/17 at 21:00 Mirtazapine (Remeron) 15 mg QHS PO Last administered on 11/14/17 19:24; Start 11/10/17 at 21:00 Citalopram Hydrobromide (CeleXA) 40 mg DAILY PO ; Start 11/11/17 at 09:00; Stop 11/11/17 at 09:00; Status DC Acetaminophen (Tylenol) 325 mg PRN Q6HRS PRN PO PAIN; Start 11/10/17 at 18:30 Sertraline HCl (Zoloft) 50 mg DAILY PO Last administered on 11/14/17 07:35; Start 11/11/17 at 09:00 Vitamin D (Vitamin D3) 50,000 unit WEEKLY PO ; Start 11/11/17 at 18:00; Stop 11/11/17 at 18:20; Status DC Vitamin D (Vitamin D3) 50,000 unit WEEKLY PO Last administered on 11/12/17 07 :37; Start 11/12/17 at 09:00 Trazodone HCl (Desyrel) 50 mg PRN QHS PRN PO INSOMNIA, MAY REPEAT X1 Last administered on 11/14/17 19:25; Start 11/12/17 at 18:00 Active Scripts Active Reported Ativan (Lorazepam) 0.5 Mg Tablet 0.5 Mg PO PRN Q6HRS PRN Calmoseptine Ointment (Menthol/Zinc Oxide) 3.5 Gm Oint.pack 3.5 Gm TP PRN Tylenol (Acetaminophen) 325 Mg Tablet 1-2 Tab PO PRN QID PRN Mirtazapine 15 Mg Tablet 15 Mg PO QHS Namenda (Memantine Hcl) 10 Mg Tablet 10 Mg PO BID Buspirone Hcl 10 Mg Tablet 10 Mg PO BID Lisinopril 20 Mg Tablet 20 Mg PO DAILY Donepezil Hcl 10 Mg Tablet 10 Mg PO DAILY Celexa (Citalopram Hydrobromide) 40 Mg Tablet 40 Mg PO DAILY Atorvastatin Calcium 10 Mg Tablet 10 Mg PO QHS I have reviewed the current psychotropics carefully including drug interactions. Risk benefit ratio favors no change other than as noted in my dictated progress note. Diagnosis: Problems: (1) Anxiety disorder (2) Impulse control disorder (3) Dementia, vascular, with depression (4) Dementia, vascular, with delusions (5) Dementia in Alzheimer's disease with delusions (6) Dementia of the Alzheimer's type with early onset with behavioral disturbance JAKUB MURRAY MD Nov 14, 2017 20:12
--- NOTE | 2017-11-15 00:27 | PN ---
DATE: This is a late entry 11/12/2017 covers elements not covered in my initial note 11/12/2017. SUBJECTIVE: I met with the patient in the evening of 11/12/2017. The patient slept 3-3/4 hours previous evening, wanders the hallways, oblivious of her surroundings, takes her medications in juice. REVIEW OF SYSTEMS: No CV, , pulmonary, eye, ENT system symptoms on review. Reliability poor. MENTAL STATUS EXAM: Oriented to herself. Insight, judgment, recent and remote memory, attention, concentration, fund of knowledge poor, consistent with her diagnosis mentioned in my initial note. IMPRESSION: Major neurocognitive disorder, Alzheimer, vascular with depression, delusion, behavioral disturbance. Rest unchanged. PLAN: Continue psychotropics mentioned in my initial note. Start trazodone 50 mg at bedtime p.r.n., march repeat x 1 for insomnia. MAN Ke MURRAY MD DR: CHRISTINA/elizabeth JOB#: [id number] / [id number]
[2017-11-15 05:48] VITALS: BP 118/75
[2017-11-15] MEDS: LISINOPRIL 20 MG TABLET PO SCH (09:17)
[2017-11-15] MEDS: SERTRALINE 50 MG TABLET. PO SCH (09:17)
[2017-11-15] MEDS: DONEPEZIL HCL 10 MG TABLET PO SCH (09:17)
[2017-11-15] MEDS: MEMANTINE 10 MG TABLET. PO SCH ×2 (09:17→19:10)
[2017-11-15] MEDS: busPIRone 10 MG TABLET. PO SCH ×2 (09:17→19:10)
[2017-11-15 16:08] VITALS: BP 121/83
[2017-11-15] MEDS: LORazepam 0.5 MG TABLET PO PRN (16:23)
[2017-11-15] MEDS: ATORVASTATIN CALCIUM 10 MG TABLET. PO SCH (19:10)
[2017-11-15] MEDS: MIRTAZAPINE 15 MG TABLET PO SCH (19:10)
[2017-11-15] MEDS: traZODone 50 MG TABLET. PO PRN (19:12)
--- NOTE | 2017-11-15 20:10 | PDOC ---
Exam Note: Saeed Note: Please also refer to the separate dictated note~for this date of service dictated separately.~Patient seen individually. Discussed the patient with Nursing staff reviewed the chart.~Reviewed interim history and current functioning. Reviewed vital signs,~Labs/ Radiology~and current medications noted below. Continue current treatment with the changes noted in the dictated addendum note Assessment: Vital Signs: Vital Signs Date Time Temp Pulse Resp B/P (MAP) Pulse Ox O2 Delivery O2 Flow Rate FiO2 11/15/17 16:08 97.7 90 18 121/83 (96) 97 Room Air I&O Intake and Output 11/15/17 06:59 Intake Total 1080 ml Balance 1080 ml Intake Oral 1080 ml # Bowel Movements 1 Current Medications: Meds: Current Medications Trimethoprim/ Sulfamethoxazole (Bactrim Ds) 1 tab 1X ONCE PO Last administered on 11/10/17 16:57; Start 11/10/17 at 17:00; Stop 11/10/17 at 17 :01; Status DC Trimethoprim/ Sulfamethoxazole (Bactrim Ds) 1 tab STK-MED ONCE PO ; Start 11/10 at 16:56; Stop 11/10/17 at 16:57; Status DC Acetaminophen (Tylenol) 650 mg PRN Q6HRS PRN PO PAIN / TEMP; Start 11/10/17 at 17:30 Multi-Ingredient Ointment (Analgesic [place]) 1 lian PRN QID PRN TP MUSCLE PAIN; Start 11/10/17 at 17:30 Al Hydroxide/Mg Hydroxide (Mylanta Plus Xs) 15 ml PRN AFTMEALHC PRN PO DYSPEPSIA; Start 11/10/17 at 17:30 Magnesium Hydroxide (Milk Of Magnesia) 2,400 mg PRN QHS PRN PO CONSTIPATION; Start 11/10/17 at 17:30 Acetaminophen (Tylenol) take 1-2 tablets PRN ... PRN QID PRN PO PAIN; Start at 18:00; Stop 11/10/17 at 18:24; Status DC Atorvastatin Calcium (Lipitor) 10 mg QHS PO Last administered on 11/15/17 19: 10; Start 11/10/17 at 21:00 Buspirone HCl (Buspar) 10 mg BID PO Last administered on 11/15/17 19:10; Start 11/10/17 at 21:00 Donepezil HCl (Aricept) 10 mg DAILY PO Last administered on 11/15/17 09:17; Start 11/11/17 at 09:00 Lisinopril (Prinivil) 20 mg DAILY PO Last administered on 11/15/17 09:17; Start 11/11/17 at 09:00 Lorazepam (Ativan) 0.5 mg PRN Q6HRS PRN PO AGITATION Last administered on 11/15 16:23; Start 11/10/17 at 18:00 Memantine (Namenda) 10 mg BID PO Last administered on 11/15/17 19:10; Start 11/10/17 at 21:00 Mirtazapine (Remeron) 15 mg QHS PO Last administered on 11/15/17 19:10; Start 11/10/17 at 21:00 Citalopram Hydrobromide (CeleXA) 40 mg DAILY PO ; Start 11/11/17 at 09:00; Stop 11/11/17 at 09:00; Status DC Acetaminophen (Tylenol) 325 mg PRN Q6HRS PRN PO PAIN; Start 11/10/17 at 18:30 Sertraline HCl (Zoloft) 50 mg DAILY PO Last administered on 11/15/17 09:17; Start 11/11/17 at 09:00 Vitamin D (Vitamin D3) 50,000 unit WEEKLY PO ; Start 11/11/17 at 18:00; Stop 11/11/17 at 18:20; Status DC Vitamin D (Vitamin D3) 50,000 unit WEEKLY PO Last administered on 11/12/17 07 :37; Start 11/12/17 at 09:00 Trazodone HCl (Desyrel) 50 mg PRN QHS PRN PO INSOMNIA, MAY REPEAT X1 Last administered on 11/15/17 19:12; Start 11/12/17 at 18:00 Active Scripts Active Reported Ativan (Lorazepam) 0.5 Mg Tablet 0.5 Mg PO PRN Q6HRS PRN Calmoseptine Ointment (Menthol/Zinc Oxide) 3.5 Gm Oint.pack 3.5 Gm TP PRN Tylenol (Acetaminophen) 325 Mg Tablet 1-2 Tab PO PRN QID PRN Mirtazapine 15 Mg Tablet 15 Mg PO QHS Namenda (Memantine Hcl) 10 Mg Tablet 10 Mg PO BID Buspirone Hcl 10 Mg Tablet 10 Mg PO BID Lisinopril 20 Mg Tablet 20 Mg PO DAILY Donepezil Hcl 10 Mg Tablet 10 Mg PO DAILY Celexa (Citalopram Hydrobromide) 40 Mg Tablet 40 Mg PO DAILY Atorvastatin Calcium 10 Mg Tablet 10 Mg PO QHS I have reviewed the current psychotropics carefully including drug interactions. Risk benefit ratio favors no change other than as noted in my dictated progress note. Diagnosis: Problems: (1) Anxiety disorder (2) Impulse control disorder (3) Dementia, vascular, with depression (4) Dementia, vascular, with delusions (5) Dementia in Alzheimer's disease with delusions (6) Dementia of the Alzheimer's type with early onset with behavioral disturbance JAKUB MURRAY MD Nov 15, 2017 20:10
--- NOTE | 2017-11-15 21:43 | PN ---
DATE: 11/14/2017 This is a late entry for 11/14/2017 and covers the elements not covered in my initial note of 11/14/2017. SUBJECTIVE: I met with the patient in the evening of 11/14/2017. The patient slept 6-1/4 hours previous evening, not aggressive, confused, has been singing at times, less parroting. She is quite disorganized. REVIEW OF SYSTEMS: No CV, , pulmonary, eye, ENT system symptoms on review. Reliability poor. MENTAL STATUS EXAM: Oriented to herself. Insight, judgment, recent and remote memory, attention, concentration, fund of knowledge poor, consistent with her diagnosis mentioned in my initial note. IMPRESSION: Major neurocognitive disorder, Alzheimer, vascular with delusion, depression, behavioral disturbance. Rest unchanged from initial note. PLAN: Continue psychotropics mentioned in my initial note. MAN eK MURRAY MD DR: CHRISTINA/elizabeth JOB#: [id number] / [id number]
[2017-11-16 05:17] VITALS: BP 111/58
--- NOTE | 2017-11-16 07:56 | PN ---
DATE: 11/13/2017 This is a late entry, covers the elements not covered in my initial note 11/13/2017. SUBJECTIVE: Per with nursing report, the patient has been somewhat more verbal, answering questions at times said she has 1 son, Juan Manuel, and 3 grandchildren, though it was difficult to confirm this from the information we have available. She did better previous evening; the morning of 11/13/2017, she was agitated with cares, urinated on the floor the previous evening and during the day. 11/13/2017, while staring off at the nursing staff oblivious of what she was doing. REVIEW OF SYSTEMS: No CV, , pulmonary, eye, ENT system symptoms on review. Reliability poor. MENTAL STATUS EXAM: Oriented to herself. Insight, judgment, recent and remote memory, attention, concentration, fund of knowledge poor, consistent with her diagnosis. Slept 7-1/2 hours previous evening. IMPRESSION: Major neurocognitive disorder, Alzheimer, vascular with delusion, depression, behavioral disturbance. Rest unchanged. PLAN: Continue psychotropics as mentioned in my initial note. MAN Ke MURRAY MD DR: CHRISTINA/elizabeth JOB#: [id number] / [id number]
[2017-11-16] MEDS: busPIRone 10 MG TABLET. PO SCH ×2 (09:36→19:15)
[2017-11-16] MEDS: SERTRALINE 50 MG TABLET. PO SCH (09:36)
[2017-11-16] MEDS: MEMANTINE 10 MG TABLET. PO SCH ×2 (09:36→19:15)
[2017-11-16] MEDS: DONEPEZIL HCL 10 MG TABLET PO SCH (09:36)
[2017-11-16] MEDS: LISINOPRIL 20 MG TABLET PO SCH (09:36)
[2017-11-16 15:52] VITALS: BP 100/60
[2017-11-16] MEDS: MIRTAZAPINE 15 MG TABLET PO SCH (19:15)
[2017-11-16] MEDS: ATORVASTATIN CALCIUM 10 MG TABLET. PO SCH (19:15)
--- NOTE | 2017-11-16 19:54 | PDOC ---
Exam Note: Saeed Note: Please also refer to the separate dictated note~for this date of service dictated separately.~Patient seen individually. Discussed the patient with Nursing staff reviewed the chart.~Reviewed interim history and current functioning. Reviewed vital signs,~Labs/ Radiology~and current medications noted below. Continue current treatment with the changes noted in the dictated addendum note Assessment: Vital Signs: Vital Signs Date Time Temp Pulse Resp B/P (MAP) Pulse Ox O2 Delivery O2 Flow Rate FiO2 11/16/17 15:52 98.5 87 18 100/60 (73) 100 11/15/17 16:08 Room Air I&O Intake and Output 11/16/17 07:00 Intake Total 1060 ml Balance 1060 ml Intake Oral 1060 ml # Voids 1 Current Medications: Meds: Current Medications Trimethoprim/ Sulfamethoxazole (Bactrim Ds) 1 tab 1X ONCE PO Last administered on 11/10/17 16:57; Start 11/10/17 at 17:00; Stop 11/10/17 at 17 :01; Status DC Trimethoprim/ Sulfamethoxazole (Bactrim Ds) 1 tab STK-MED ONCE PO ; Start 11/10 at 16:56; Stop 11/10/17 at 16:57; Status DC Acetaminophen (Tylenol) 650 mg PRN Q6HRS PRN PO PAIN / TEMP; Start 11/10/17 at 17:30 Multi-Ingredient Ointment (Analgesic [place]) 1 lian PRN QID PRN TP MUSCLE PAIN; Start 11/10/17 at 17:30 Al Hydroxide/Mg Hydroxide (Mylanta Plus Xs) 15 ml PRN AFTMEALHC PRN PO DYSPEPSIA; Start 11/10/17 at 17:30 Magnesium Hydroxide (Milk Of Magnesia) 2,400 mg PRN QHS PRN PO CONSTIPATION; Start 11/10/17 at 17:30 Acetaminophen (Tylenol) take 1-2 tablets PRN ... PRN QID PRN PO PAIN; Start at 18:00; Stop 11/10/17 at 18:24; Status DC Atorvastatin Calcium (Lipitor) 10 mg QHS PO Last administered on 11/16/17 19: 15; Start 11/10/17 at 21:00 Buspirone HCl (Buspar) 10 mg BID PO Last administered on 11/16/17 09:36; Start 11/10/17 at 21:00; Stop 11/16/17 at 16:52; Status DC Donepezil HCl (Aricept) 10 mg DAILY PO Last administered on 11/16/17 09:36; Start 11/11/17 at 09:00 Lisinopril (Prinivil) 20 mg DAILY PO Last administered on 11/16/17 09:36; Start 11/11/17 at 09:00 Lorazepam (Ativan) 0.5 mg PRN Q6HRS PRN PO AGITATION Last administered on 11/15 16:23; Start 11/10/17 at 18:00 Memantine (Namenda) 10 mg BID PO Last administered on 11/16/17 19:15; Start 11/10/17 at 21:00 Mirtazapine (Remeron) 15 mg QHS PO Last administered on 11/16/17 19:15; Start 11/10/17 at 21:00 Citalopram Hydrobromide (CeleXA) 40 mg DAILY PO ; Start 11/11/17 at 09:00; Stop 11/11/17 at 09:00; Status DC Acetaminophen (Tylenol) 325 mg PRN Q6HRS PRN PO PAIN; Start 11/10/17 at 18:30 Sertraline HCl (Zoloft) 50 mg DAILY PO Last administered on 11/16/17 09:36; Start 11/11/17 at 09:00; Stop 11/16/17 at 18:13; Status DC Vitamin D (Vitamin D3) 50,000 unit WEEKLY PO ; Start 11/11/17 at 18:00; Stop 11/11/17 at 18:20; Status DC Vitamin D (Vitamin D3) 50,000 unit WEEKLY PO Last administered on 11/12/17 07 :37; Start 11/12/17 at 09:00 Trazodone HCl (Desyrel) 50 mg PRN QHS PRN PO INSOMNIA, MAY REPEAT X1 Last administered on 11/15/17 19:12; Start 11/12/17 at 18:00 Cyanocobalamin (Vitamin B-12) 1,000 mcg DAILY PO ; Start 11/17/17 at 09:00 Buspirone HCl (Buspar) 10 mg TID PO Last administered on 12/26/17at 19:15; Start 11/16/17 at 21:00 Sertraline HCl (Zoloft) 75 mg DAILY PO ; Start 11/17/17 at 09:00 Active Scripts Active Reported Ativan (Lorazepam) 0.5 Mg Tablet 0.5 Mg PO PRN Q6HRS PRN Calmoseptine Ointment (Menthol/Zinc Oxide) 3.5 Gm Oint.pack 3.5 Gm TP PRN Tylenol (Acetaminophen) 325 Mg Tablet 1-2 Tab PO PRN QID PRN Mirtazapine 15 Mg Tablet 15 Mg PO QHS Namenda (Memantine Hcl) 10 Mg Tablet 10 Mg PO BID Buspirone Hcl 10 Mg Tablet 10 Mg PO BID Lisinopril 20 Mg Tablet 20 Mg PO DAILY Donepezil Hcl 10 Mg Tablet 10 Mg PO DAILY Celexa (Citalopram Hydrobromide) 40 Mg Tablet 40 Mg PO DAILY Atorvastatin Calcium 10 Mg Tablet 10 Mg PO QHS I have reviewed the current psychotropics carefully including drug interactions. Risk benefit ratio favors no change other than as noted in my dictated progress note. Diagnosis: Problems: (1) Anxiety disorder (2) Impulse control disorder (3) Dementia, vascular, with depression (4) Dementia, vascular, with delusions (5) Dementia in Alzheimer's disease with delusions (6) Dementia of the Alzheimer's type with early onset with behavioral disturbance JAKUB MURRAY MD Nov 16, 2017 19:54
[2017-11-17 05:06] VITALS: BP 112/76
[2017-11-17] MEDS: LISINOPRIL 20 MG TABLET PO SCH (08:43)
[2017-11-17] MEDS: busPIRone 10 MG TABLET. PO SCH ×3 (08:44→13:50)
[2017-11-17] MEDS: MEMANTINE 10 MG TABLET. PO SCH ×2 (08:44→19:30)
[2017-11-17] MEDS: DONEPEZIL HCL 10 MG TABLET PO SCH (08:44)
[2017-11-17] MEDS: CYANOCOBALAMIN (VITAMIN B-12) 1,000 MCG TABLET. PO SCH (08:45)
[2017-11-17] MEDS: SERTRALINE 50 MG TABLET. PO SCH (08:48)
--- NOTE | 2017-11-17 11:20 | PN ---
DATE: 11/15/2017 This is a late entry for 11/15/2017 and covers elements not covered in my initial note of 11/15/2017. I met with the patient the evening of 11/15/2017. The patient slept 7 hours previous evening, quite confused, intrusive with others, anxious, pacing compliant with meds in pudding. Received p.r.n. Ativan at 1622 hours. REVIEW OF SYSTEMS: No CV, , pulmonary, eye, ENT system symptoms on review. Reliability poor. MENTAL STATUS EXAM: Oriented to herself. Insight, judgment, recent and remote memory, attention, concentration, fund of knowledge poor, consistent with her diagnosis as mentioned in my initial note. IMPRESSION: Major neurocognitive disorder, Alzheimer, vascular with depression, delusion, behavioral disturbance. Rest unchanged. PLAN: Continue current psychotropics as mentioned in my initial note, may need to increase BuSpar for agitation or consider Depakote as a mood stabilizer. In fact, starting 11/16/2017, we will increase BuSpar to 10 mg 3 times a day. Adjust further as clinically indicated. MAN Ke MURRAY MD DR: CHRISTINA/elizabeth JOB#: [id number] / [id number]
[2017-11-17 16:04] VITALS: BP 122/82
[2017-11-17] MEDS: MIRTAZAPINE 15 MG TABLET PO SCH (19:30)
[2017-11-17] MEDS: ATORVASTATIN CALCIUM 10 MG TABLET. PO SCH (19:30)
--- NOTE | 2017-11-17 19:49 | PDOC ---
Exam Note: Saeed Note: Please also refer to the separate dictated note~for this date of service dictated separately.~Patient seen individually. Discussed the patient with Nursing staff reviewed the chart.~Reviewed interim history and current functioning. Reviewed vital signs,~Labs/ Radiology~and current medications noted below. Continue current treatment with the changes noted in the dictated addendum note Assessment: Vital Signs: Vital Signs Date Time Temp Pulse Resp B/P (MAP) Pulse Ox O2 Delivery O2 Flow Rate FiO2 11/17/17 16:04 98.3 74 18 122/82 (95) 98 11/15/17 16:08 Room Air I&O Intake and Output 11/17/17 06:59 Intake Total 960 ml Balance 960 ml Intake Oral 960 ml # Voids 3 # Bowel Movements 1 Current Medications: Meds: Current Medications Trimethoprim/ Sulfamethoxazole (Bactrim Ds) 1 tab 1X ONCE PO Last administered on 11/10/17 16:57; Start 11/10/17 at 17:00; Stop 11/10/17 at 17 :01; Status DC Trimethoprim/ Sulfamethoxazole (Bactrim Ds) 1 tab STK-MED ONCE PO ; Start 11/10 at 16:56; Stop 11/10/17 at 16:57; Status DC Acetaminophen (Tylenol) 650 mg PRN Q6HRS PRN PO PAIN / TEMP; Start 11/10/17 at 17:30 Multi-Ingredient Ointment (Analgesic [place]) 1 lian PRN QID PRN TP MUSCLE PAIN; Start 11/10/17 at 17:30 Al Hydroxide/Mg Hydroxide (Mylanta Plus Xs) 15 ml PRN AFTMEALHC PRN PO DYSPEPSIA; Start 11/10/17 at 17:30 Magnesium Hydroxide (Milk Of Magnesia) 2,400 mg PRN QHS PRN PO CONSTIPATION; Start 11/10/17 at 17:30 Acetaminophen (Tylenol) take 1-2 tablets PRN ... PRN QID PRN PO PAIN; Start at 18:00; Stop 11/10/17 at 18:24; Status DC Atorvastatin Calcium (Lipitor) 10 mg QHS PO Last administered on 11/17/17 19: 30; Start 11/10/17 at 21:00 Buspirone HCl (Buspar) 10 mg BID PO Last administered on 11/16/17 09:36; Start 11/10/17 at 21:00; Stop 11/16/17 at 16:52; Status DC Donepezil HCl (Aricept) 10 mg DAILY PO Last administered on 11/17/17 08:44; Start 11/11/17 at 09:00 Lisinopril (Prinivil) 20 mg DAILY PO Last administered on 11/17/17 08:43; Start 11/11/17 at 09:00 Lorazepam (Ativan) 0.5 mg PRN Q6HRS PRN PO AGITATION Last administered on 11/15 16:23; Start 11/10/17 at 18:00 Memantine (Namenda) 10 mg BID PO Last administered on 11/17/17 19:30; Start 11/10/17 at 21:00 Mirtazapine (Remeron) 15 mg QHS PO Last administered on 11/17/17 19:30; Start 11/10/17 at 21:00 Citalopram Hydrobromide (CeleXA) 40 mg DAILY PO ; Start 11/11/17 at 09:00; Stop 11/11/17 at 09:00; Status DC Acetaminophen (Tylenol) 325 mg PRN Q6HRS PRN PO PAIN; Start 11/10/17 at 18:30 Sertraline HCl (Zoloft) 50 mg DAILY PO Last administered on 11/16/17 09:36; Start 11/11/17 at 09:00; Stop 11/16/17 at 18:13; Status DC Vitamin D (Vitamin D3) 50,000 unit WEEKLY PO ; Start 11/11/17 at 18:00; Stop 11/11/17 at 18:20; Status DC Vitamin D (Vitamin D3) 50,000 unit WEEKLY PO Last administered on 11/12/17 07 :37; Start 11/12/17 at 09:00 Trazodone HCl (Desyrel) 50 mg PRN QHS PRN PO INSOMNIA, MAY REPEAT X1 Last administered on 11/15/17 19:12; Start 11/12/17 at 18:00 Cyanocobalamin (Vitamin B-12) 1,000 mcg DAILY PO Last administered on 08:45; Start 11/17/17 at 09:00 Buspirone HCl (Buspar) 10 mg TID PO Last administered on 11/17/17 13:50; Start 11/16/17 at 21:00 Sertraline HCl (Zoloft) 75 mg DAILY PO Last administered on 11/17/17 08:48; Start 11/17/17 at 09:00 Active Scripts Active Reported Ativan (Lorazepam) 0.5 Mg Tablet 0.5 Mg PO PRN Q6HRS PRN Calmoseptine Ointment (Menthol/Zinc Oxide) 3.5 Gm Oint.pack 3.5 Gm TP PRN Tylenol (Acetaminophen) 325 Mg Tablet 1-2 Tab PO PRN QID PRN Mirtazapine 15 Mg Tablet 15 Mg PO QHS Namenda (Memantine Hcl) 10 Mg Tablet 10 Mg PO BID Buspirone Hcl 10 Mg Tablet 10 Mg PO BID Lisinopril 20 Mg Tablet 20 Mg PO DAILY Donepezil Hcl 10 Mg Tablet 10 Mg PO DAILY Celexa (Citalopram Hydrobromide) 40 Mg Tablet 40 Mg PO DAILY Atorvastatin Calcium 10 Mg Tablet 10 Mg PO QHS I have reviewed the current psychotropics carefully including drug interactions. Risk benefit ratio favors no change other than as noted in my dictated progress note. Diagnosis: Problems: (1) Anxiety disorder (2) Impulse control disorder (3) Dementia, vascular, with depression (4) Dementia, vascular, with delusions (5) Dementia in Alzheimer's disease with delusions (6) Dementia of the Alzheimer's type with early onset with behavioral disturbance JAKUB MURRAY MD Nov 17, 2017 19:49
[2017-11-18 06:01] VITALS: BP 99/65
[2017-11-18] MEDS: SERTRALINE 50 MG TABLET. PO SCH (08:53)
[2017-11-18] MEDS: DONEPEZIL HCL 10 MG TABLET PO SCH (08:53)
[2017-11-18] MEDS: busPIRone 10 MG TABLET. PO SCH ×3 (08:54→19:13)
[2017-11-18] MEDS: CYANOCOBALAMIN (VITAMIN B-12) 1,000 MCG TABLET. PO SCH (08:54)
[2017-11-18] MEDS: MEMANTINE 10 MG TABLET. PO SCH ×2 (08:54→19:13)
[2017-11-18] MEDS: LISINOPRIL 20 MG TABLET PO SCH (08:55)
--- NOTE | 2017-11-18 11:05 | PN ---
DATE: 11/16/2017 This is a late entry, 11/16/2017, covers the elements not covered in my initial note. SUBJECTIVE: I met with the patient evening of 11/16/2017. The patient remains confused, resistive to cares, intrusive with others, parroting words that she hears from others, tearful in the morning and evening, oblivious the way she is when I met with her. REVIEW OF SYSTEMS: No CV, , pulmonary, eye, ENT system symptoms on review. Reliability poor. MENTAL STATUS EXAM: Oriented to herself. Insight, judgment, recent and remote memory, attention, concentration, fund of knowledge poor, consistent with her diagnosis as mentioned in my initial note. IMPRESSION: Major neurocognitive disorder, Alzheimer, vascular with depression, delusion, behavioral disturbance. Rest unchanged. PLAN: Continue current psychotropics as mentioned in my initial note. Increase Zoloft from 50 mg a day to 75 mg at bedtime. MAN Ke MURRAY MD DR: CHRISTINA/elizabeth JOB#: [id number] / [id number]
[2017-11-18 16:01] VITALS: BP 107/69
[2017-11-18] MEDS: ATORVASTATIN CALCIUM 10 MG TABLET. PO SCH (19:13)
[2017-11-18] MEDS: MIRTAZAPINE 15 MG TABLET PO SCH (19:13)
[2017-11-18] MEDS: risperiDONE 0.25 MG TABLET. PO SCH (19:52)
--- NOTE | 2017-11-18 19:54 | PDOC ---
Exam Note: Saeed Note: Please also refer to the separate dictated note~for this date of service dictated separately.~Patient seen individually. Discussed the patient with Nursing staff reviewed the chart.~Reviewed interim history and current functioning. Reviewed vital signs,~Labs/ Radiology~and current medications noted below. Continue current treatment with the changes noted in the dictated addendum note Assessment: Vital Signs: Vital Signs Date Time Temp Pulse Resp B/P (MAP) Pulse Ox O2 Delivery O2 Flow Rate FiO2 11/18/17 16:01 97.6 54 20 107/69 (82) 97 Room Air I&O Intake and Output 11/18/17 07:00 Intake Total 480 ml Balance 480 ml Intake Oral 480 ml # Voids 3 # Bowel Movements 1 Current Medications: Meds: Current Medications Trimethoprim/ Sulfamethoxazole (Bactrim Ds) 1 tab 1X ONCE PO Last administered on 11/10/17 16:57; Start 11/10/17 at 17:00; Stop 11/10/17 at 17 :01; Status DC Trimethoprim/ Sulfamethoxazole (Bactrim Ds) 1 tab STK-MED ONCE PO ; Start 11/10 at 16:56; Stop 11/10/17 at 16:57; Status DC Acetaminophen (Tylenol) 650 mg PRN Q6HRS PRN PO PAIN / TEMP; Start 11/10/17 at 17:30 Multi-Ingredient Ointment (Analgesic [place]) 1 lian PRN QID PRN TP MUSCLE PAIN; Start 11/10/17 at 17:30 Al Hydroxide/Mg Hydroxide (Mylanta Plus Xs) 15 ml PRN AFTMEALHC PRN PO DYSPEPSIA; Start 11/10/17 at 17:30 Magnesium Hydroxide (Milk Of Magnesia) 2,400 mg PRN QHS PRN PO CONSTIPATION; Start 11/10/17 at 17:30 Acetaminophen (Tylenol) take 1-2 tablets PRN ... PRN QID PRN PO PAIN; Start at 18:00; Stop 11/10/17 at 18:24; Status DC Atorvastatin Calcium (Lipitor) 10 mg QHS PO Last administered on 11/18/17 19: 13; Start 11/10/17 at 21:00 Buspirone HCl (Buspar) 10 mg BID PO Last administered on 11/16/17 09:36; Start 11/10/17 at 21:00; Stop 11/16/17 at 16:52; Status DC Donepezil HCl (Aricept) 10 mg DAILY PO Last administered on 11/18/17 08:53; Start 11/11/17 at 09:00 Lisinopril (Prinivil) 20 mg DAILY PO Last administered on 11/17/17 08:43; Start 11/11/17 at 09:00 Lorazepam (Ativan) 0.5 mg PRN Q6HRS PRN PO AGITATION Last administered on 11/15 16:23; Start 11/10/17 at 18:00 Memantine (Namenda) 10 mg BID PO Last administered on 11/18/17 19:13; Start 11/10/17 at 21:00 Mirtazapine (Remeron) 15 mg QHS PO Last administered on 11/18/17 19:13; Start 11/10/17 at 21:00 Citalopram Hydrobromide (CeleXA) 40 mg DAILY PO ; Start 11/11/17 at 09:00; Stop 11/11/17 at 09:00; Status DC Acetaminophen (Tylenol) 325 mg PRN Q6HRS PRN PO PAIN; Start 11/10/17 at 18:30 Sertraline HCl (Zoloft) 50 mg DAILY PO Last administered on 11/16/17 09:36; Start 11/11/17 at 09:00; Stop 11/16/17 at 18:13; Status DC Vitamin D (Vitamin D3) 50,000 unit WEEKLY PO ; Start 11/11/17 at 18:00; Stop 11/11/17 at 18:20; Status DC Vitamin D (Vitamin D3) 50,000 unit WEEKLY PO Last administered on 11/12/17 07 :37; Start 11/12/17 at 09:00 Trazodone HCl (Desyrel) 50 mg PRN QHS PRN PO INSOMNIA, MAY REPEAT X1 Last administered on 11/15/17 19:12; Start 11/12/17 at 18:00 Cyanocobalamin (Vitamin B-12) 1,000 mcg DAILY PO Last administered on 08:54; Start 11/17/17 at 09:00 Buspirone HCl (Buspar) 10 mg TID PO Last administered on 11/18/17 19:13; Start 11/16/17 at 21:00 Sertraline HCl (Zoloft) 75 mg DAILY PO Last administered on 11/18/17 08:53; Start 11/17/17 at 09:00 Risperidone (RisperDAL) 0.125 mg HS PO Last administered on 11/18/17 19:52; Start 11/18/17 at 21:00 Active Scripts Active Reported Ativan (Lorazepam) 0.5 Mg Tablet 0.5 Mg PO PRN Q6HRS PRN Calmoseptine Ointment (Menthol/Zinc Oxide) 3.5 Gm Oint.pack 3.5 Gm TP PRN Tylenol (Acetaminophen) 325 Mg Tablet 1-2 Tab PO PRN QID PRN Mirtazapine 15 Mg Tablet 15 Mg PO QHS Namenda (Memantine Hcl) 10 Mg Tablet 10 Mg PO BID Buspirone Hcl 10 Mg Tablet 10 Mg PO BID Lisinopril 20 Mg Tablet 20 Mg PO DAILY Donepezil Hcl 10 Mg Tablet 10 Mg PO DAILY Celexa (Citalopram Hydrobromide) 40 Mg Tablet 40 Mg PO DAILY Atorvastatin Calcium 10 Mg Tablet 10 Mg PO QHS I have reviewed the current psychotropics carefully including drug interactions. Risk benefit ratio favors no change other than as noted in my dictated progress note. Diagnosis: Problems: (1) Anxiety disorder (2) Impulse control disorder (3) Dementia, vascular, with depression (4) Dementia, vascular, with delusions (5) Dementia in Alzheimer's disease with delusions (6) Dementia of the Alzheimer's type with early onset with behavioral disturbance JAKUB MURRAY MD Nov 18, 2017 19:54
[2017-11-18] MEDS: traZODone 50 MG TABLET. PO PRN (22:26)
[2017-11-19 05:57] VITALS: BP 131/70
[2017-11-19] MEDS: LISINOPRIL 20 MG TABLET PO SCH (07:53)
[2017-11-19] MEDS: SERTRALINE 50 MG TABLET. PO SCH (07:54)
[2017-11-19] MEDS: busPIRone 10 MG TABLET. PO SCH ×3 (07:54→19:19)
[2017-11-19] MEDS: CHOLECALCIFEROL (VITAMIN D3) 50,000 UNIT CAPSULE PO SCH (07:54)
[2017-11-19] MEDS: DONEPEZIL HCL 10 MG TABLET PO SCH (07:55)
[2017-11-19] MEDS: MEMANTINE 10 MG TABLET. PO SCH ×2 (07:55→19:19)
[2017-11-19] MEDS: CYANOCOBALAMIN (VITAMIN B-12) 1,000 MCG TABLET. PO SCH (07:55)
[2017-11-19 15:59] VITALS: BP 112/69
--- NOTE | 2017-11-19 17:48 | PDOC ---
Exam Note: Saeed Note: Please also refer to the separate dictated note~for this date of service dictated separately.~Patient seen individually. Discussed the patient with Nursing staff reviewed the chart.~Reviewed interim history and current functioning. Reviewed vital signs,~Labs/ Radiology~and current medications noted below. Continue current treatment with the changes noted in the dictated addendum note Assessment: Vital Signs: Vital Signs Date Time Temp Pulse Resp B/P (MAP) Pulse Ox O2 Delivery O2 Flow Rate FiO2 11/19/17 15:59 98.9 86 20 112/69 (83) 97 11/18/17 16:01 Room Air I&O Intake and Output 11/19/17 06:59 Intake Total 960 ml Balance 960 ml Intake Oral 960 ml Current Medications: Meds: Current Medications Trimethoprim/ Sulfamethoxazole (Bactrim Ds) 1 tab 1X ONCE PO Last administered on 11/10/17 16:57; Start 11/10/17 at 17:00; Stop 11/10/17 at 17 :01; Status DC Trimethoprim/ Sulfamethoxazole (Bactrim Ds) 1 tab STK-MED ONCE PO ; Start 11/10 at 16:56; Stop 11/10/17 at 16:57; Status DC Acetaminophen (Tylenol) 650 mg PRN Q6HRS PRN PO PAIN / TEMP; Start 11/10/17 at 17:30 Multi-Ingredient Ointment (Analgesic [place]) 1 lian PRN QID PRN TP MUSCLE PAIN; Start 11/10/17 at 17:30 Al Hydroxide/Mg Hydroxide (Mylanta Plus Xs) 15 ml PRN AFTMEALHC PRN PO DYSPEPSIA; Start 11/10/17 at 17:30 Magnesium Hydroxide (Milk Of Magnesia) 2,400 mg PRN QHS PRN PO CONSTIPATION; Start 11/10/17 at 17:30 Acetaminophen (Tylenol) take 1-2 tablets PRN ... PRN QID PRN PO PAIN; Start at 18:00; Stop 11/10/17 at 18:24; Status DC Atorvastatin Calcium (Lipitor) 10 mg QHS PO Last administered on 11/18/17 19: 13; Start 11/10/17 at 21:00 Buspirone HCl (Buspar) 10 mg BID PO Last administered on 11/16/17 09:36; Start 11/10/17 at 21:00; Stop 11/16/17 at 16:52; Status DC Donepezil HCl (Aricept) 10 mg DAILY PO Last administered on 11/19/17 07:55; Start 11/11/17 at 09:00 Lisinopril (Prinivil) 20 mg DAILY PO Last administered on 11/19/17 07:53; Start 11/11/17 at 09:00 Lorazepam (Ativan) 0.5 mg PRN Q6HRS PRN PO AGITATION Last administered on 11/15 16:23; Start 11/10/17 at 18:00 Memantine (Namenda) 10 mg BID PO Last administered on 11/19/17 07:55; Start 11/10/17 at 21:00 Mirtazapine (Remeron) 15 mg QHS PO Last administered on 11/18/17 19:13; Start 11/10/17 at 21:00 Citalopram Hydrobromide (CeleXA) 40 mg DAILY PO ; Start 11/11/17 at 09:00; Stop 11/11/17 at 09:00; Status DC Acetaminophen (Tylenol) 325 mg PRN Q6HRS PRN PO PAIN; Start 11/10/17 at 18:30 Sertraline HCl (Zoloft) 50 mg DAILY PO Last administered on 11/16/17 09:36; Start 11/11/17 at 09:00; Stop 11/16/17 at 18:13; Status DC Vitamin D (Vitamin D3) 50,000 unit WEEKLY PO ; Start 11/11/17 at 18:00; Stop 11/11/17 at 18:20; Status DC Vitamin D (Vitamin D3) 50,000 unit WEEKLY PO Last administered on 11/19/17 07 :54; Start 11/12/17 at 09:00 Trazodone HCl (Desyrel) 50 mg PRN QHS PRN PO INSOMNIA, MAY REPEAT X1 Last administered on 11/18/17 22:26; Start 11/12/17 at 18:00 Cyanocobalamin (Vitamin B-12) 1,000 mcg DAILY PO Last administered on 07:55; Start 11/17/17 at 09:00 Buspirone HCl (Buspar) 10 mg TID PO Last administered on 11/19/17 14:12; Start 11/16/17 at 21:00 Sertraline HCl (Zoloft) 75 mg DAILY PO Last administered on 11/19/17 07:54; Start 11/17/17 at 09:00 Risperidone (RisperDAL) 0.125 mg HS PO Last administered on 11/18/17 19:52; Start 11/18/17 at 21:00 Active Scripts Active Reported Ativan (Lorazepam) 0.5 Mg Tablet 0.5 Mg PO PRN Q6HRS PRN Calmoseptine Ointment (Menthol/Zinc Oxide) 3.5 Gm Oint.pack 3.5 Gm TP PRN Tylenol (Acetaminophen) 325 Mg Tablet 1-2 Tab PO PRN QID PRN Mirtazapine 15 Mg Tablet 15 Mg PO QHS Namenda (Memantine Hcl) 10 Mg Tablet 10 Mg PO BID Buspirone Hcl 10 Mg Tablet 10 Mg PO BID Lisinopril 20 Mg Tablet 20 Mg PO DAILY Donepezil Hcl 10 Mg Tablet 10 Mg PO DAILY Celexa (Citalopram Hydrobromide) 40 Mg Tablet 40 Mg PO DAILY Atorvastatin Calcium 10 Mg Tablet 10 Mg PO QHS I have reviewed the current psychotropics carefully including drug interactions. Risk benefit ratio favors no change other than as noted in my dictated progress note. Diagnosis: Problems: (1) Dementia of the Alzheimer's type with early onset with behavioral disturbance (2) Dementia in Alzheimer's disease with delusions (3) Dementia, vascular, with delusions (4) Dementia, vascular, with depression (5) Impulse control disorder (6) Anxiety disorder JAKUB MURRAY MD Nov 19, 2017 17:48
[2017-11-19] MEDS: MIRTAZAPINE 15 MG TABLET PO SCH (19:19)
[2017-11-19] MEDS: ATORVASTATIN CALCIUM 10 MG TABLET. PO SCH (19:19)
[2017-11-19] MEDS: risperiDONE 0.25 MG TABLET. PO SCH (19:20)
--- NOTE | 2017-11-19 19:51 | PDOC ---
Exam Note: Saeed Note: Please also refer to the separate dictated note~for this date of service dictated separately.~Patient seen individually. Discussed the patient with Nursing staff reviewed the chart.~Reviewed interim history and current functioning. Reviewed vital signs,~Labs/ Radiology~and current medications noted below. Continue current treatment with the changes noted in the dictated addendum note Assessment: Vital Signs: Vital Signs Date Time Temp Pulse Resp B/P (MAP) Pulse Ox O2 Delivery O2 Flow Rate FiO2 11/19/17 15:59 98.9 86 20 112/69 (83) 97 11/18/17 16:01 Room Air I&O Intake and Output 11/19/17 07:00 Intake Total 960 ml Balance 960 ml Intake Oral 960 ml Current Medications: Meds: Current Medications Trimethoprim/ Sulfamethoxazole (Bactrim Ds) 1 tab 1X ONCE PO Last administered on 11/10/17 16:57; Start 11/10/17 at 17:00; Stop 11/10/17 at 17 :01; Status DC Trimethoprim/ Sulfamethoxazole (Bactrim Ds) 1 tab STK-MED ONCE PO ; Start 11/10 at 16:56; Stop 11/10/17 at 16:57; Status DC Acetaminophen (Tylenol) 650 mg PRN Q6HRS PRN PO PAIN / TEMP; Start 11/10/17 at 17:30 Multi-Ingredient Ointment (Analgesic [place]) 1 lian PRN QID PRN TP MUSCLE PAIN; Start 11/10/17 at 17:30 Al Hydroxide/Mg Hydroxide (Mylanta Plus Xs) 15 ml PRN AFTMEALHC PRN PO DYSPEPSIA; Start 11/10/17 at 17:30 Magnesium Hydroxide (Milk Of Magnesia) 2,400 mg PRN QHS PRN PO CONSTIPATION; Start 11/10/17 at 17:30 Acetaminophen (Tylenol) take 1-2 tablets PRN ... PRN QID PRN PO PAIN; Start at 18:00; Stop 11/10/17 at 18:24; Status DC Atorvastatin Calcium (Lipitor) 10 mg QHS PO Last administered on 11/19/17 19: 19; Start 11/10/17 at 21:00 Buspirone HCl (Buspar) 10 mg BID PO Last administered on 11/16/17 09:36; Start 11/10/17 at 21:00; Stop 11/16/17 at 16:52; Status DC Donepezil HCl (Aricept) 10 mg DAILY PO Last administered on 11/19/17 07:55; Start 11/11/17 at 09:00 Lisinopril (Prinivil) 20 mg DAILY PO Last administered on 11/19/17 07:53; Start 11/11/17 at 09:00 Lorazepam (Ativan) 0.5 mg PRN Q6HRS PRN PO AGITATION Last administered on 11/15 16:23; Start 11/10/17 at 18:00 Memantine (Namenda) 10 mg BID PO Last administered on 11/19/17 19:19; Start 11/10/17 at 21:00 Mirtazapine (Remeron) 15 mg QHS PO Last administered on 11/19/17 19:19; Start 11/10/17 at 21:00 Citalopram Hydrobromide (CeleXA) 40 mg DAILY PO ; Start 11/11/17 at 09:00; Stop 11/11/17 at 09:00; Status DC Acetaminophen (Tylenol) 325 mg PRN Q6HRS PRN PO PAIN; Start 11/10/17 at 18:30 Sertraline HCl (Zoloft) 50 mg DAILY PO Last administered on 11/16/17 09:36; Start 11/11/17 at 09:00; Stop 11/16/17 at 18:13; Status DC Vitamin D (Vitamin D3) 50,000 unit WEEKLY PO ; Start 11/11/17 at 18:00; Stop 11/11/17 at 18:20; Status DC Vitamin D (Vitamin D3) 50,000 unit WEEKLY PO Last administered on 11/19/17 07 :54; Start 11/12/17 at 09:00 Trazodone HCl (Desyrel) 50 mg PRN QHS PRN PO INSOMNIA, MAY REPEAT X1 Last administered on 11/18/17 22:26; Start 11/12/17 at 18:00 Cyanocobalamin (Vitamin B-12) 1,000 mcg DAILY PO Last administered on 07:55; Start 11/17/17 at 09:00 Buspirone HCl (Buspar) 10 mg TID PO Last administered on 11/19/17 19:19; Start 11/16/17 at 21:00 Sertraline HCl (Zoloft) 75 mg DAILY PO Last administered on 11/19/17 07:54; Start 11/17/17 at 09:00 Risperidone (RisperDAL) 0.125 mg HS PO Last administered on 11/19/17 19:20; Start 11/18/17 at 21:00 Active Scripts Active Reported Ativan (Lorazepam) 0.5 Mg Tablet 0.5 Mg PO PRN Q6HRS PRN Calmoseptine Ointment (Menthol/Zinc Oxide) 3.5 Gm Oint.pack 3.5 Gm TP PRN Tylenol (Acetaminophen) 325 Mg Tablet 1-2 Tab PO PRN QID PRN Mirtazapine 15 Mg Tablet 15 Mg PO QHS Namenda (Memantine Hcl) 10 Mg Tablet 10 Mg PO BID Buspirone Hcl 10 Mg Tablet 10 Mg PO BID Lisinopril 20 Mg Tablet 20 Mg PO DAILY Donepezil Hcl 10 Mg Tablet 10 Mg PO DAILY Celexa (Citalopram Hydrobromide) 40 Mg Tablet 40 Mg PO DAILY Atorvastatin Calcium 10 Mg Tablet 10 Mg PO QHS I have reviewed the current psychotropics carefully including drug interactions. Risk benefit ratio favors no change other than as noted in my dictated progress note. Diagnosis: Problems: (1) Anxiety disorder (2) Impulse control disorder (3) Dementia, vascular, with depression (4) Dementia, vascular, with delusions (5) Dementia in Alzheimer's disease with delusions (6) Dementia of the Alzheimer's type with early onset with behavioral disturbance JAKUB MURRAY MD Nov 19, 2017 19:51
--- NOTE | 2017-11-20 04:33 | PN ---
DATE: 11/18/2017 This is a late entry for 11/18/2017 covers elements not covered in my initial note of 11/18/2017. SUBJECTIVE: The patient was staffed at a treatment team meeting with the entire team morning of 11/18/2017 and the patient's sister Pao attended. We reviewed the patient's history at length including a past psychiatric treatment with Dr. Moore, psychiatrist. The patient has been having active hallucinations, talking to herself in the mirror, ranting and furious at times per her sister. Dr. Moore had attempted treatment on Seroquel. She was unable to tolerate this due to repeated falls and seizure-like movements. She is sleeping about 7 hours average, slept 3-1/4 hours previous evening, I met with her the evening of 11/18/2017. REVIEW OF SYSTEMS: No CV, , pulmonary, eye, ENT system symptoms on review. Reliability poor. MENTAL STATUS EXAM: Oriented to herself. Insight, judgment, recent and remote memory, attention, concentration, fund of knowledge poor, consistent with her diagnosis. Sister said that the patient had been living with her for about 4 years, still she was not able to manage her and that is when she went to the [facility]. LABORATORY DATA: Reviewed. IMPRESSION: Major neurocognitive disorder, Alzheimer, vascular with depression, delusion, behavioral disturbance. Rest unchanged from initial note. PLAN: Lengthy discussion about the treatment options with antipsychotics. The patient was unable to tolerate Seroquel. We will start Risperdal 0.125 mg p.o. at bedtime. Rest psychotropics unchanged from initial note. Reviewed drug interactions and risk/benefit ratio at length. For now, it is okay to start the Risperdal. MAN Ke MURRAY MD DR: CHRISTINA/elizabeth JOB#: [id number] / [id number]
[2017-11-20 06:03] VITALS: BP 105/55
[2017-11-20] MEDS: SERTRALINE 50 MG TABLET. PO SCH (08:03)
[2017-11-20] MEDS: busPIRone 10 MG TABLET. PO SCH ×3 (08:03→19:25)
[2017-11-20] MEDS: CYANOCOBALAMIN (VITAMIN B-12) 1,000 MCG TABLET. PO SCH (08:03)
[2017-11-20] MEDS: DONEPEZIL HCL 10 MG TABLET PO SCH (08:03)
[2017-11-20] MEDS: MEMANTINE 10 MG TABLET. PO SCH ×2 (08:07→19:25)
[2017-11-20] MEDS: LISINOPRIL 20 MG TABLET PO SCH (08:07)
[2017-11-20 09:26] LABS: BASO # 0.1 x10^3/uL (0.0-0.2); BASO % 1 % (0-3); EOS # 0.1 x10^3/uL (0.0-0.7); EOS % 1 % (0-3); HEMATOCRIT 38.5 % (36.0-47.0); HEMOGLOBIN 12.5 g/dL (12.0-15.5); LYMPH # 1.9 x10^3/uL (1.0-4.8); LYMPH % 20 % (24-48); MEAN CORPUSCULAR HEMOGLOBIN 29 pg (25-35); MEAN CORPUSCULAR HGB CONC 32 g/dL (31-37); MEAN CORPUSCULAR VOLUME 90 fL (79-100); MONO # 0.5 x10^3/uL (0.0-1.1); MONO % 6 % (0-9); NEUT # 7.1 x10^3uL (1.8-7.7); NEUT % 73 % (31-73); PLATELET COUNT 210 x10^3/uL (140-400); RED BLOOD COUNT 4.26 x10^6/uL (3.50-5.40); RED CELL DISTRIBUTION WIDTH 14.3 % (11.5-14.5); WHITE BLOOD COUNT 9.7 x10^3/uL (4.0-11.0)
[2017-11-20 09:55] LABS: ALBUMIN 3.6 g/dL (3.4-5.0); CALCIUM 9.1 mg/dL (8.5-10.1); GFR 56.6; POTASSIUM 3.8 mmol/L (3.5-5.1); TOTAL BILIRUBIN 0.4 mg/dL (0.2-1.0); TOTAL PROTEIN 7.1 g/dL (6.4-8.2)
[2017-11-20 15:51] VITALS: BP 130/86
--- NOTE | 2017-11-20 19:12 | PDOC ---
Exam Note: Saeed Note: Please also refer to the separate dictated note~for this date of service dictated separately.~Patient seen individually. Discussed the patient with Nursing staff reviewed the chart.~Reviewed interim history and current functioning. Reviewed vital signs,~Labs/ Radiology~and current medications noted below. Continue current treatment with the changes noted in the dictated addendum note Assessment: Vital Signs: Vital Signs Date Time Temp Pulse Resp B/P (MAP) Pulse Ox O2 Delivery O2 Flow Rate FiO2 11/20/17 15:51 97.8 83 16 130/86 (101) 94 11/18/17 16:01 Room Air I&O Intake and Output 11/20/17 06:59 Intake Total 1088 ml Balance 1088 ml Intake Oral 1088 ml Labs: Laboratory Tests Test 11/20/17 09:12 White Blood Count 9.7 x10^3/uL (4.0-11.0) Red Blood Count 4.26 x10^6/uL (3.50-5.40) Hemoglobin 12.5 g/dL (12.0-15.5) Hematocrit 38.5 % (36.0-47.0) Mean Corpuscular Volume 90 fL (79-100) Mean Corpuscular Hemoglobin 29 pg (25-35) Mean Corpuscular Hemoglobin Concent 32 g/dL (31-37) Red Cell Distribution Width 14.3 % (11.5-14.5) Platelet Count 210 x10^3/uL (140-400) Neutrophils (%) (Auto) 73 % (31-73) Lymphocytes (%) (Auto) 20 % (24-48) L Monocytes (%) (Auto) 6 % (0-9) Eosinophils (%) (Auto) 1 % (0-3) Basophils (%) (Auto) 1 % (0-3) Neutrophils # (Auto) 7.1 x10^3uL (1.8-7.7) Lymphocytes # (Auto) 1.9 x10^3/uL (1.0-4.8) Monocytes # (Auto) 0.5 x10^3/uL (0.0-1.1) Eosinophils # (Auto) 0.1 x10^3/uL (0.0-0.7) Basophils # (Auto) 0.1 x10^3/uL (0.0-0.2) Sodium Level 146 mmol/L (136-145) H Potassium Level 3.8 mmol/L (3.5-5.1) Chloride Level 107 mmol/L (98-107) Carbon Dioxide Level 28 mmol/L (21-32) Anion Gap 11 (6-14) Blood Urea Nitrogen 20 mg/dL (7-20) Creatinine 1.0 mg/dL (0.6-1.0) Estimated GFR (Cockcroft-Gault) 56.6 BUN/Creatinine Ratio 20 (6-20) Glucose Level 84 mg/dL (70-99) Calcium Level 9.1 mg/dL (8.5-10.1) Total Bilirubin 0.4 mg/dL (0.2-1.0) Aspartate Amino Transferase (AST) 26 U/L (15-37) Alanine Aminotransferase (ALT) 47 U/L (14-59) Alkaline Phosphatase 107 U/L (46-116) Total Protein 7.1 g/dL (6.4-8.2) Albumin 3.6 g/dL (3.4-5.0) Albumin/Globulin Ratio 1.0 (1.0-1.7) Current Medications: Meds: Current Medications Trimethoprim/ Sulfamethoxazole (Bactrim Ds) 1 tab 1X ONCE PO Last administered on 11/10/17t 16:57; Start 11/10/17 at 17:00; Stop 11/10/17 at 17 :01; Status DC Trimethoprim/ Sulfamethoxazole (Bactrim Ds) 1 tab STK-MED ONCE PO ; Start 11/10 at 16:56; Stop 11/10/17 at 16:57; Status DC Acetaminophen (Tylenol) 650 mg PRN Q6HRS PRN PO PAIN / TEMP; Start 11/10/17 at 17:30 Multi-Ingredient Ointment (Analgesic [place]) 1 lian PRN QID PRN TP MUSCLE PAIN; Start 11/10/17 at 17:30 Al Hydroxide/Mg Hydroxide (Mylanta Plus Xs) 15 ml PRN AFTMEALHC PRN PO DYSPEPSIA; Start 11/10/17 at 17:30 Magnesium Hydroxide (Milk Of Magnesia) 2,400 mg PRN QHS PRN PO CONSTIPATION; Start 11/10/17 at 17:30 Acetaminophen (Tylenol) take 1-2 tablets PRN ... PRN QID PRN PO PAIN; Start at 18:00; Stop 11/10/17 at 18:24; Status DC Atorvastatin Calcium (Lipitor) 10 mg QHS PO Last administered on 11/19/17 19: 19; Start 11/10/17 at 21:00 Buspirone HCl (Buspar) 10 mg BID PO Last administered on 11/16/17 09:36; Start 11/10/17 at 21:00; Stop 11/16/17 at 16:52; Status DC Donepezil HCl (Aricept) 10 mg DAILY PO Last administered on 11/20/17 08:03; Start 11/11/17 at 09:00 Lisinopril (Prinivil) 20 mg DAILY PO Last administered on 11/19/17 07:53; Start 11/11/17 at 09:00 Lorazepam (Ativan) 0.5 mg PRN Q6HRS PRN PO AGITATION Last administered on 11/15 16:23; Start 11/10/17 at 18:00 Memantine (Namenda) 10 mg BID PO Last administered on 11/20/17 08:07; Start 11/10/17 at 21:00 Mirtazapine (Remeron) 15 mg QHS PO Last administered on 11/19/17 19:19; Start 11/10/17 at 21:00 Citalopram Hydrobromide (CeleXA) 40 mg DAILY PO ; Start 11/11/17 at 09:00; Stop 11/11/17 at 09:00; Status DC Acetaminophen (Tylenol) 325 mg PRN Q6HRS PRN PO PAIN; Start 11/10/17 at 18:30 Sertraline HCl (Zoloft) 50 mg DAILY PO Last administered on 11/16/17 09:36; Start 11/11/17 at 09:00; Stop 11/16/17 at 18:13; Status DC Vitamin D (Vitamin D3) 50,000 unit WEEKLY PO ; Start 11/11/17 at 18:00; Stop 11/11/17 at 18:20; Status DC Vitamin D (Vitamin D3) 50,000 unit WEEKLY PO Last administered on 11/19/17 07 :54; Start 11/12/17 at 09:00 Trazodone HCl (Desyrel) 50 mg PRN QHS PRN PO INSOMNIA, MAY REPEAT X1 Last administered on 11/18/17 22:26; Start 11/12/17 at 18:00 Cyanocobalamin (Vitamin B-12) 1,000 mcg DAILY PO Last administered on 08:03; Start 11/17/17 at 09:00 Buspirone HCl (Buspar) 10 mg TID PO Last administered on 11/20/17 13:27; Start 11/16/17 at 21:00 Sertraline HCl (Zoloft) 75 mg DAILY PO Last administered on 11/20/17 08:03; Start 11/17/17 at 09:00 Risperidone (RisperDAL) 0.125 mg HS PO Last administered on 11/19/17 19:20; Start 11/18/17 at 21:00 Active Scripts Active Reported Ativan (Lorazepam) 0.5 Mg Tablet 0.5 Mg PO PRN Q6HRS PRN Calmoseptine Ointment (Menthol/Zinc Oxide) 3.5 Gm Oint.pack 3.5 Gm TP PRN Tylenol (Acetaminophen) 325 Mg Tablet 1-2 Tab PO PRN QID PRN Mirtazapine 15 Mg Tablet 15 Mg PO QHS Namenda (Memantine Hcl) 10 Mg Tablet 10 Mg PO BID Buspirone Hcl 10 Mg Tablet 10 Mg PO BID Lisinopril 20 Mg Tablet 20 Mg PO DAILY Donepezil Hcl 10 Mg Tablet 10 Mg PO DAILY Celexa (Citalopram Hydrobromide) 40 Mg Tablet 40 Mg PO DAILY Atorvastatin Calcium 10 Mg Tablet 10 Mg PO QHS I have reviewed the current psychotropics carefully including drug interactions. Risk benefit ratio favors no change other than as noted in my dictated progress note. Diagnosis: Problems: (1) Dementia of the Alzheimer's type with early onset with behavioral disturbance (2) Dementia in Alzheimer's disease with delusions (3) Dementia, vascular, with delusions (4) Dementia, vascular, with depression (5) Impulse control disorder (6) Anxiety disorder JKAUB MURRAY MD Nov 20, 2017 19:12
[2017-11-20] MEDS: risperiDONE 0.25 MG TABLET. PO SCH (19:25)
[2017-11-20] MEDS: ATORVASTATIN CALCIUM 10 MG TABLET. PO SCH (19:25)
[2017-11-20] MEDS: MIRTAZAPINE 15 MG TABLET PO SCH (19:26)
[2017-11-21 06:05] VITALS: BP 117/75
[2017-11-21] MEDS: CYANOCOBALAMIN (VITAMIN B-12) 1,000 MCG TABLET. PO SCH (08:01)
[2017-11-21] MEDS: SERTRALINE 50 MG TABLET. PO SCH (08:01)
[2017-11-21] MEDS: DONEPEZIL HCL 10 MG TABLET PO SCH (08:01)
[2017-11-21] MEDS: MEMANTINE 10 MG TABLET. PO SCH ×2 (08:01→19:30)
[2017-11-21] MEDS: busPIRone 10 MG TABLET. PO SCH ×3 (08:01→19:30)
[2017-11-21] MEDS: LISINOPRIL 20 MG TABLET PO SCH (08:02)
--- NOTE | 2017-11-21 09:03 | PN ---
DATE: 11/19/2017 PSYCHIATRIC PROGRESS NOTE This is a late entry 11/19/2017, covers elements not covered in my initial note 11/19/2017. SUBJECTIVE: I met with the patient the evening of 11/19/2017. The patient slept 4-3/4 hours previous evening, takes her medications whole in juice. Tearful at times, frequently going to the bathroom and then does okay. REVIEW OF SYSTEMS: No CV, , pulmonary, eye, ENT system symptoms on review. Reliability poor. Oblivious to her surroundings as I met with her, has a gentle smile on her face. MENTAL STATUS EXAM: Oriented to herself. Insight, judgment, recent and remote memory, attention, concentration, fund of knowledge poor, consistent with her diagnoses mentioned in my initial note. IMPRESSION: Major neurocognitive disorder, Alzheimer, vascular with depression, delusion, behavioral disturbance. PLAN: Continue psychotropics mentioned in my initial note. Adjust further as clinically indicated. JAKUB MURRAY MD DR: CHRISTINA/elizabeth JOB#: [id number] / [id number]
[2017-11-21 15:55] VITALS: BP 126/75
[2017-11-21] MEDS: risperiDONE 0.25 MG TABLET. PO SCH (19:29)
[2017-11-21] MEDS: MIRTAZAPINE 15 MG TABLET PO SCH (19:30)
[2017-11-21] MEDS: ATORVASTATIN CALCIUM 10 MG TABLET. PO SCH (19:30)
--- NOTE | 2017-11-21 20:18 | PDOC ---
Exam Note: Saeed Note: Please also refer to the separate dictated note~for this date of service dictated separately.~Patient seen individually. Discussed the patient with Nursing staff reviewed the chart.~Reviewed interim history and current functioning. Reviewed vital signs,~Labs/ Radiology~and current medications noted below. Continue current treatment with the changes noted in the dictated addendum note Assessment: Vital Signs: Vital Signs Date Time Temp Pulse Resp B/P (MAP) Pulse Ox O2 Delivery O2 Flow Rate FiO2 11/21/17 15:55 98.9 98 18 126/75 (92) 99 11/18/17 16:01 Room Air I&O Intake and Output 11/21/17 07:00 Intake Total 845 ml Balance 845 ml Intake Oral 845 ml Current Medications: Meds: Current Medications Trimethoprim/ Sulfamethoxazole (Bactrim Ds) 1 tab 1X ONCE PO Last administered on 11/10/17 16:57; Start 11/10/17 at 17:00; Stop 11/10/17 at 17 :01; Status DC Trimethoprim/ Sulfamethoxazole (Bactrim Ds) 1 tab STK-MED ONCE PO ; Start 11/10 at 16:56; Stop 11/10/17 at 16:57; Status DC Acetaminophen (Tylenol) 650 mg PRN Q6HRS PRN PO PAIN / TEMP; Start 11/10/17 at 17:30 Multi-Ingredient Ointment (Analgesic [place]) 1 lian PRN QID PRN TP MUSCLE PAIN; Start 11/10/17 at 17:30 Al Hydroxide/Mg Hydroxide (Mylanta Plus Xs) 15 ml PRN AFTMEALHC PRN PO DYSPEPSIA; Start 11/10/17 at 17:30 Magnesium Hydroxide (Milk Of Magnesia) 2,400 mg PRN QHS PRN PO CONSTIPATION Last administered on 11/21/17 11:32; Start 11/10/17 at 17:30 Acetaminophen (Tylenol) take 1-2 tablets PRN ... PRN QID PRN PO PAIN; Start at 18:00; Stop 11/10/17 at 18:24; Status DC Atorvastatin Calcium (Lipitor) 10 mg QHS PO Last administered on 11/21/17 19: 30; Start 11/10/17 at 21:00 Buspirone HCl (Buspar) 10 mg BID PO Last administered on 11/16/17 09:36; Start 11/10/17 at 21:00; Stop 11/16/17 at 16:52; Status DC Donepezil HCl (Aricept) 10 mg DAILY PO Last administered on 11/21/17 08:01; Start 11/11/17 at 09:00 Lisinopril (Prinivil) 20 mg DAILY PO Last administered on 11/21/17 08:02; Start 11/11/17 at 09:00 Lorazepam (Ativan) 0.5 mg PRN Q6HRS PRN PO AGITATION Last administered on 11/15 16:23; Start 11/10/17 at 18:00 Memantine (Namenda) 10 mg BID PO Last administered on 11/21/17 19:30; Start 11/10/17 at 21:00 Mirtazapine (Remeron) 15 mg QHS PO Last administered on 11/21/17 19:30; Start 11/10/17 at 21:00 Citalopram Hydrobromide (CeleXA) 40 mg DAILY PO ; Start 11/11/17 at 09:00; Stop 11/11/17 at 09:00; Status DC Acetaminophen (Tylenol) 325 mg PRN Q6HRS PRN PO PAIN; Start 11/10/17 at 18:30 Sertraline HCl (Zoloft) 50 mg DAILY PO Last administered on 11/16/17 09:36; Start 11/11/17 at 09:00; Stop 11/16/17 at 18:13; Status DC Vitamin D (Vitamin D3) 50,000 unit WEEKLY PO ; Start 11/11/17 at 18:00; Stop 11/11/17 at 18:20; Status DC Vitamin D (Vitamin D3) 50,000 unit WEEKLY PO Last administered on 11/19/17 07 :54; Start 11/12/17 at 09:00 Trazodone HCl (Desyrel) 50 mg PRN QHS PRN PO INSOMNIA, MAY REPEAT X1 Last administered on 11/18/17 22:26; Start 11/12/17 at 18:00 Cyanocobalamin (Vitamin B-12) 1,000 mcg DAILY PO Last administered on 08:01; Start 11/17/17 at 09:00 Buspirone HCl (Buspar) 10 mg TID PO Last administered on 11/21/17 19:30; Start 11/16/17 at 21:00 Sertraline HCl (Zoloft) 75 mg DAILY PO Last administered on 11/21/17 08:01; Start 11/17/17 at 09:00 Risperidone (RisperDAL) 0.125 mg HS PO Last administered on 11/21/17 19:29; Start 11/18/17 at 21:00 Active Scripts Active Reported Ativan (Lorazepam) 0.5 Mg Tablet 0.5 Mg PO PRN Q6HRS PRN Calmoseptine Ointment (Menthol/Zinc Oxide) 3.5 Gm Oint.pack 3.5 Gm TP PRN Tylenol (Acetaminophen) 325 Mg Tablet 1-2 Tab PO PRN QID PRN Mirtazapine 15 Mg Tablet 15 Mg PO QHS Namenda (Memantine Hcl) 10 Mg Tablet 10 Mg PO BID Buspirone Hcl 10 Mg Tablet 10 Mg PO BID Lisinopril 20 Mg Tablet 20 Mg PO DAILY Donepezil Hcl 10 Mg Tablet 10 Mg PO DAILY Celexa (Citalopram Hydrobromide) 40 Mg Tablet 40 Mg PO DAILY Atorvastatin Calcium 10 Mg Tablet 10 Mg PO QHS I have reviewed the current psychotropics carefully including drug interactions. Risk benefit ratio favors no change other than as noted in my dictated progress note. Diagnosis: Problems: (1) Dementia of the Alzheimer's type with early onset with behavioral disturbance (2) Dementia in Alzheimer's disease with delusions (3) Dementia, vascular, with delusions (4) Dementia, vascular, with depression (5) Impulse control disorder (6) Anxiety disorder JAKUB MURRAY MD Nov 21, 2017 20:18
[2017-11-22 06:06] VITALS: BP 119/62
[2017-11-22] MEDS: busPIRone 10 MG TABLET. PO SCH ×3 (08:40→19:56)
[2017-11-22] MEDS: LISINOPRIL 20 MG TABLET PO SCH (08:41)
[2017-11-22] MEDS: MEMANTINE 10 MG TABLET. PO SCH ×2 (08:41→19:56)
[2017-11-22] MEDS: CYANOCOBALAMIN (VITAMIN B-12) 1,000 MCG TABLET. PO SCH (08:42)
[2017-11-22] MEDS: DONEPEZIL HCL 10 MG TABLET PO SCH (08:42)
[2017-11-22] MEDS: SERTRALINE 50 MG TABLET. PO SCH (08:42)
--- NOTE | 2017-11-22 13:30 | PN ---
DATE: 11/21/2017 PSYCHIATRIC PROGRESS NOTE This is a late entry of 11/20/2017 covers elements not covered in my initial note of 11/20/2017. I met with the patient in the evening of 11/20/2016. The patient remains confused, at times resistive to medication, does not know what the medications are, what to do with them once the nursing staff places them in her hand. During the day on 11/20/2016, she was more compliant with taking her medications. REVIEW OF SYSTEMS: No CV, , pulmonary, eye, ENT system symptoms on review. Reliability is poor. MENTAL STATUS EXAM: Oriented to herself. Insight, judgment, recent and remote memory, attention, concentration, fund of knowledge poor, consistent with her diagnosis mentioned in my initial note. IMPRESSION: Major neurocognitive disorder, Alzheimer, vascular with depression, delusion, behavioral disturbance. Rest unchanged. PLAN: Continue psychotropics mentioned in my initial note. CT head showed cerebral atrophy, no acute changes. JAKUB MURRAY MD DR: CHRISTINA/elizabeth JOB#: [id number] / [id number]
[2017-11-22 16:01] VITALS: BP 136/87
[2017-11-22] MEDS: risperiDONE 0.25 MG TABLET. PO SCH (19:56)
[2017-11-22] MEDS: MIRTAZAPINE 15 MG TABLET PO SCH (19:56)
[2017-11-22] MEDS: ATORVASTATIN CALCIUM 10 MG TABLET. PO SCH (19:56)
--- NOTE | 2017-11-22 19:57 | PDOC ---
Exam Note: Saeed Note: Please also refer to the separate dictated note~for this date of service dictated separately.~Patient seen individually. Discussed the patient with Nursing staff reviewed the chart.~Reviewed interim history and current functioning. Reviewed vital signs,~Labs/ Radiology~and current medications noted below. Continue current treatment with the changes noted in the dictated addendum note Assessment: Vital Signs: Vital Signs Date Time Temp Pulse Resp B/P (MAP) Pulse Ox O2 Delivery O2 Flow Rate FiO2 11/22/17 16:01 98.6 83 16 136/87 (103) 95 11/18/17 16:01 Room Air I&O Intake and Output 11/22/17 07:00 Intake Total 840 ml Balance 840 ml Intake Oral 840 ml # Voids 1 # Bowel Movements 1 Current Medications: Meds: Current Medications Trimethoprim/ Sulfamethoxazole (Bactrim Ds) 1 tab 1X ONCE PO Last administered on 11/10/17 16:57; Start 11/10/17 at 17:00; Stop 11/10/17 at 17 :01; Status DC Trimethoprim/ Sulfamethoxazole (Bactrim Ds) 1 tab STK-MED ONCE PO ; Start 11/10 at 16:56; Stop 11/10/17 at 16:57; Status DC Acetaminophen (Tylenol) 650 mg PRN Q6HRS PRN PO PAIN / TEMP; Start 11/10/17 at 17:30 Multi-Ingredient Ointment (Analgesic [place]) 1 lian PRN QID PRN TP MUSCLE PAIN; Start 11/10/17 at 17:30 Al Hydroxide/Mg Hydroxide (Mylanta Plus Xs) 15 ml PRN AFTMEALHC PRN PO DYSPEPSIA; Start 11/10/17 at 17:30 Magnesium Hydroxide (Milk Of Magnesia) 2,400 mg PRN QHS PRN PO CONSTIPATION Last administered on 11/21/17 11:32; Start 11/10/17 at 17:30 Acetaminophen (Tylenol) take 1-2 tablets PRN ... PRN QID PRN PO PAIN; Start at 18:00; Stop 11/10/17 at 18:24; Status DC Atorvastatin Calcium (Lipitor) 10 mg QHS PO Last administered on 11/21/17 19: 30; Start 11/10/17 at 21:00 Buspirone HCl (Buspar) 10 mg BID PO Last administered on 11/16/17 09:36; Start 11/10/17 at 21:00; Stop 11/16/17 at 16:52; Status DC Donepezil HCl (Aricept) 10 mg DAILY PO Last administered on 11/22/17 08:42; Start 11/11/17 at 09:00 Lisinopril (Prinivil) 20 mg DAILY PO Last administered on 11/22/17 08:41; Start 11/11/17 at 09:00 Lorazepam (Ativan) 0.5 mg PRN Q6HRS PRN PO AGITATION Last administered on 11/15 16:23; Start 11/10/17 at 18:00 Memantine (Namenda) 10 mg BID PO Last administered on 11/22/17 08:41; Start at 21:00 Mirtazapine (Remeron) 15 mg QHS PO Last administered on 11/21/17 19:30; Start 11/10/17 at 21:00 Citalopram Hydrobromide (CeleXA) 40 mg DAILY PO ; Start 11/11/17 at 09:00; Stop 11/11/17 at 09:00; Status DC Acetaminophen (Tylenol) 325 mg PRN Q6HRS PRN PO PAIN; Start 11/10/17 at 18:30 Sertraline HCl (Zoloft) 50 mg DAILY PO Last administered on 11/16/17 09:36; Start 11/11/17 at 09:00; Stop 11/16/17 at 18:13; Status DC Vitamin D (Vitamin D3) 50,000 unit WEEKLY PO ; Start 11/11/17 at 18:00; Stop 11/11/17 at 18:20; Status DC Vitamin D (Vitamin D3) 50,000 unit WEEKLY PO Last administered on 11/19/17 07 :54; Start 11/12/17 at 09:00 Trazodone HCl (Desyrel) 50 mg PRN QHS PRN PO INSOMNIA, MAY REPEAT X1 Last administered on 11/18/17 22:26; Start 11/12/17 at 18:00 Cyanocobalamin (Vitamin B-12) 1,000 mcg DAILY PO Last administered on 11/22/17 08:42; Start 11/17/17 at 09:00 Buspirone HCl (Buspar) 10 mg TID PO Last administered on 11/22/17at 13:54; Start 11/16/17 at 21:00 Sertraline HCl (Zoloft) 75 mg DAILY PO Last administered on 11/22/17at 08:42; Start 11/17/17 at 09:00 Risperidone (RisperDAL) 0.125 mg HS PO Last administered on 11/21/17t 19:29; Start 11/18/17 at 21:00 Active Scripts Active Reported Ativan (Lorazepam) 0.5 Mg Tablet 0.5 Mg PO PRN Q6HRS PRN Calmoseptine Ointment (Menthol/Zinc Oxide) 3.5 Gm Oint.pack 3.5 Gm TP PRN Tylenol (Acetaminophen) 325 Mg Tablet 1-2 Tab PO PRN QID PRN Mirtazapine 15 Mg Tablet 15 Mg PO QHS Namenda (Memantine Hcl) 10 Mg Tablet 10 Mg PO BID Buspirone Hcl 10 Mg Tablet 10 Mg PO BID Lisinopril 20 Mg Tablet 20 Mg PO DAILY Donepezil Hcl 10 Mg Tablet 10 Mg PO DAILY Celexa (Citalopram Hydrobromide) 40 Mg Tablet 40 Mg PO DAILY Atorvastatin Calcium 10 Mg Tablet 10 Mg PO QHS I have reviewed the current psychotropics carefully including drug interactions. Risk benefit ratio favors no change other than as noted in my dictated progress note. Diagnosis: Problems: (1) Anxiety disorder (2) Impulse control disorder (3) Dementia, vascular, with depression (4) Dementia, vascular, with delusions (5) Dementia in Alzheimer's disease with delusions (6) Dementia of the Alzheimer's type with early onset with behavioral disturbance JAKUB MURRAY MD Nov 22, 2017 19:57
[2017-11-23 05:57] VITALS: BP 120/63
[2017-11-23] MEDS: busPIRone 10 MG TABLET. PO SCH ×3 (08:30→19:19)
[2017-11-23] MEDS: MEMANTINE 10 MG TABLET. PO SCH ×2 (08:30→19:19)
[2017-11-23] MEDS: DONEPEZIL HCL 10 MG TABLET PO SCH (08:30)
[2017-11-23] MEDS: LISINOPRIL 20 MG TABLET PO SCH (08:30)
[2017-11-23] MEDS: SERTRALINE 50 MG TABLET. PO SCH (08:31)
[2017-11-23] MEDS: CYANOCOBALAMIN (VITAMIN B-12) 1,000 MCG TABLET. PO SCH (08:31)
--- NOTE | 2017-11-23 09:59 | PN ---
DATE: 11/17/2017 This late entry 11/17/2017 covers elements not covered in my initial note 11/17/2017. I met with the patient evening of 11/17/2017. On review of her functioning, she seemed to be hallucinating the previous day, urinated on the floor, but takes her medications ____ appetite is fair. REVIEW OF SYSTEMS: No CV, , pulmonary, eye, ENT system symptoms on review. Reliability poor. MENTAL STATUS EXAM: Oriented to herself. Insight, judgment, recent and remote memory, attention, concentration, fund of knowledge poor, consistent with her diagnosis. She follows me around the unit even after I met with her. LABORATORY DATA: Reviewed. IMPRESSION: Major neurocognitive disorder, Alzheimer, vascular with depression, delusion, behavioral disturbance. Rest unchanged. PLAN: Continue psychotropics mentioned in my initial note. If psychotic symptoms are evident, we will consider adding Seroquel or Risperdal. JAKUB MURRAY MD DR: CHRISTINA/elizabeth JOB#: [id number] / [id number]
[2017-11-23 15:52] VITALS: BP 113/78
[2017-11-23 15:55] VITALS: BP 113/78
[2017-11-23] MEDS: ATORVASTATIN CALCIUM 10 MG TABLET. PO SCH (19:19)
[2017-11-23] MEDS: risperiDONE 0.25 MG TABLET. PO SCH (19:20)
[2017-11-23] MEDS: MIRTAZAPINE 15 MG TABLET PO SCH (19:20)
--- NOTE | 2017-11-23 20:08 | PDOC ---
Exam Note: Saeed Note: Please also refer to the separate dictated note~for this date of service dictated separately.~Patient seen individually. Discussed the patient with Nursing staff reviewed the chart.~Reviewed interim history and current functioning. Reviewed vital signs,~Labs/ Radiology~and current medications noted below. Continue current treatment with the changes noted in the dictated addendum note Assessment: Vital Signs: Vital Signs Date Time Temp Pulse Resp B/P (MAP) Pulse Ox O2 Delivery O2 Flow Rate FiO2 11/23/17 15:55 97.2 91 18 113/78 (90) 96 11/18/17 16:01 Room Air I&O Intake and Output 11/23/17 07:00 Intake Total 960 ml Balance 960 ml Intake Oral 960 ml # Bowel Movements 1 Current Medications: Meds: Current Medications Trimethoprim/ Sulfamethoxazole (Bactrim Ds) 1 tab 1X ONCE PO Last administered on 11/10/17 16:57; Start 11/10/17 at 17:00; Stop 11/10/17 at 17 :01; Status DC Trimethoprim/ Sulfamethoxazole (Bactrim Ds) 1 tab STK-MED ONCE PO ; Start 11/10 at 16:56; Stop 11/10/17 at 16:57; Status DC Acetaminophen (Tylenol) 650 mg PRN Q6HRS PRN PO PAIN / TEMP; Start 11/10/17 at 17:30 Multi-Ingredient Ointment (Analgesic [place]) 1 lian PRN QID PRN TP MUSCLE PAIN; Start 11/10/17 at 17:30 Al Hydroxide/Mg Hydroxide (Mylanta Plus Xs) 15 ml PRN AFTMEALHC PRN PO DYSPEPSIA; Start 11/10/17 at 17:30 Magnesium Hydroxide (Milk Of Magnesia) 2,400 mg PRN QHS PRN PO CONSTIPATION Last administered on 11/21/17t 11:32; Start 11/10/17 at 17:30 Acetaminophen (Tylenol) take 1-2 tablets PRN ... PRN QID PRN PO PAIN; Start at 18:00; Stop 11/10/17 at 18:24; Status DC Atorvastatin Calcium (Lipitor) 10 mg QHS PO Last administered on 11/23/17at 19:19 ; Start 11/10/17 at 21:00 Buspirone HCl (Buspar) 10 mg BID PO Last administered on 11/16/17 09:36; Start 11/10/17 at 21:00; Stop 11/16/17 at 16:52; Status DC Donepezil HCl (Aricept) 10 mg DAILY PO Last administered on 11/23/17 08:30; Start 11/11/17 at 09:00 Lisinopril (Prinivil) 20 mg DAILY PO Last administered on 11/23/17 08:30; Start 11/11/17 at 09:00 Lorazepam (Ativan) 0.5 mg PRN Q6HRS PRN PO AGITATION Last administered on 11/15 16:23; Start 11/10/17 at 18:00 Memantine (Namenda) 10 mg BID PO Last administered on 11/23/17 19:19; Start at 21:00 Mirtazapine (Remeron) 15 mg QHS PO Last administered on 11/23/17 19:20; Start 11/10/17 at 21:00 Citalopram Hydrobromide (CeleXA) 40 mg DAILY PO ; Start 11/11/17 at 09:00; Stop 11/11/17 at 09:00; Status DC Acetaminophen (Tylenol) 325 mg PRN Q6HRS PRN PO PAIN; Start 11/10/17 at 18:30 Sertraline HCl (Zoloft) 50 mg DAILY PO Last administered on 11/16/17 09:36; Start 11/11/17 at 09:00; Stop 11/16/17 at 18:13; Status DC Vitamin D (Vitamin D3) 50,000 unit WEEKLY PO ; Start 11/11/17 at 18:00; Stop 11/11/17 at 18:20; Status DC Vitamin D (Vitamin D3) 50,000 unit WEEKLY PO Last administered on 11/19/17 07 :54; Start 11/12/17 at 09:00 Trazodone HCl (Desyrel) 50 mg PRN QHS PRN PO INSOMNIA, MAY REPEAT X1 Last administered on 11/18/17 22:26; Start 11/12/17 at 18:00 Cyanocobalamin (Vitamin B-12) 1,000 mcg DAILY PO Last administered on 11/23/17 08:31; Start 11/17/17 at 09:00 Buspirone HCl (Buspar) 10 mg TID PO Last administered on 11/23/17 19:19; Start 11/16/17 at 21:00 Sertraline HCl (Zoloft) 75 mg DAILY PO Last administered on 11/23/17at 08:31; Start 11/17/17 at 09:00 Risperidone (RisperDAL) 0.125 mg HS PO Last administered on 11/22/17at 19:56; Start 11/18/17 at 21:00; Stop 11/23/17 at 18:05; Status DC Risperidone (RisperDAL) 0.25 mg HS PO Last administered on 11/23/17at 19:20; Start 11/23/17 at 21:00 Active Scripts Active Reported Ativan (Lorazepam) 0.5 Mg Tablet 0.5 Mg PO PRN Q6HRS PRN Calmoseptine Ointment (Menthol/Zinc Oxide) 3.5 Gm Oint.pack 3.5 Gm TP PRN Tylenol (Acetaminophen) 325 Mg Tablet 1-2 Tab PO PRN QID PRN Mirtazapine 15 Mg Tablet 15 Mg PO QHS Namenda (Memantine Hcl) 10 Mg Tablet 10 Mg PO BID Buspirone Hcl 10 Mg Tablet 10 Mg PO BID Lisinopril 20 Mg Tablet 20 Mg PO DAILY Donepezil Hcl 10 Mg Tablet 10 Mg PO DAILY Celexa (Citalopram Hydrobromide) 40 Mg Tablet 40 Mg PO DAILY Atorvastatin Calcium 10 Mg Tablet 10 Mg PO QHS I have reviewed the current psychotropics carefully including drug interactions. Risk benefit ratio favors no change other than as noted in my dictated progress note. Diagnosis: Problems: (1) Anxiety disorder (2) Impulse control disorder (3) Dementia, vascular, with depression (4) Dementia, vascular, with delusions (5) Dementia in Alzheimer's disease with delusions (6) Dementia of the Alzheimer's type with early onset with behavioral disturbance JAKUB MURRAY MD Nov 23, 2017 20:08
[2017-11-24 05:40] VITALS: BP 125/75
[2017-11-24] MEDS: CYANOCOBALAMIN (VITAMIN B-12) 1,000 MCG TABLET. PO SCH (08:38)
[2017-11-24] MEDS: MEMANTINE 10 MG TABLET. PO SCH ×2 (08:38→19:02)
[2017-11-24] MEDS: busPIRone 10 MG TABLET. PO SCH ×3 (08:38→19:02)
[2017-11-24] MEDS: DONEPEZIL HCL 10 MG TABLET PO SCH (08:38)
[2017-11-24] MEDS: LISINOPRIL 20 MG TABLET PO SCH (08:38)
[2017-11-24] MEDS: SERTRALINE 50 MG TABLET. PO SCH (08:39)
--- NOTE | 2017-11-24 10:48 | PN ---
DATE: 11/21/2017 PSYCHIATRIC PROGRESS NOTE This is a late entry of 11/21/2017 covers elements not covered in my initial note for 11/21/2017. SUBJECTIVE: I met with the patient evening of 11/21/2017. Overall, the patient had a good day, confused, not combative with cares. REVIEW OF SYSTEMS: No CV, , pulmonary, eye, ENT system symptoms on review. Reliability poor. MENTAL STATUS EXAM: Oriented to herself. Insight, judgment, recent and remote memory, attention, concentration, fund of knowledge poor, consistent with her diagnosis mentioned in my initial note. IMPRESSION: Major neurocognitive disorder, Alzheimer, vascular with depression, delusion, behavioral disturbance. Rest unchanged. PLAN: Continue current psychotropics mentioned in my initial note. MAN Ke MURRAY MD DR: CHRISTINA/elizabeth JOB#: [id number] / [id number]
--- NOTE | 2017-11-24 15:39 | PN ---
DATE: 11/22/2017 This is a late entry 11/22/2017, covers elements not covered in my initial note of 11/22/2017. I met with the patient in the evening of 11/22/2017. She remains confused, calm, cooperative, takes her medications whole, slept 6-1/2 hours previous evening. REVIEW OF SYSTEMS: No CV, , pulmonary, eye, ENT system symptoms on review. Reliability poor. MENTAL STATUS EXAM: Oriented to herself. Insight, judgment, recent and remote memory, attention, concentration, fund of knowledge poor, consistent with her diagnosis mentioned in my initial note. IMPRESSION: Major neurocognitive disorder, Alzheimer, vascular with depression, delusion, behavioral disturbance. Rest unchanged. PLAN: Continue psychotropics mentioned in my initial note. Adjust further as clinically indicated. MAN Ke MURRAY MD DR: CHRISTINA/elizabeth JOB#: [id number] / [id number]
[2017-11-24 16:18] VITALS: BP 105/65
[2017-11-24] MEDS: risperiDONE 0.25 MG TABLET. PO SCH (19:02)
[2017-11-24] MEDS: ATORVASTATIN CALCIUM 10 MG TABLET. PO SCH (19:02)
[2017-11-24] MEDS: MIRTAZAPINE 15 MG TABLET PO SCH (19:02)
--- NOTE | 2017-11-24 20:03 | PDOC ---
Exam Note: Saeed Note: Please also refer to the separate dictated note~for this date of service dictated separately.~Patient seen individually. Discussed the patient with Nursing staff reviewed the chart.~Reviewed interim history and current functioning. Reviewed vital signs,~Labs/ Radiology~and current medications noted below. Continue current treatment with the changes noted in the dictated addendum note Assessment: Vital Signs: Vital Signs Date Time Temp Pulse Resp B/P (MAP) Pulse Ox O2 Delivery O2 Flow Rate FiO2 11/24/17 16:18 97.8 103 20 105/65 (78) 98 11/18/17 16:01 Room Air I&O Intake and Output 11/24/17 07:00 Intake Total 960 ml Balance 960 ml Intake Oral 960 ml Current Medications: Meds: Current Medications Trimethoprim/ Sulfamethoxazole (Bactrim Ds) 1 tab 1X ONCE PO Last administered on 11/10/17 16:57; Start 11/10/17 at 17:00; Stop 11/10/17 at 17 :01; Status DC Trimethoprim/ Sulfamethoxazole (Bactrim Ds) 1 tab STK-MED ONCE PO ; Start 11/10 at 16:56; Stop 11/10/17 at 16:57; Status DC Acetaminophen (Tylenol) 650 mg PRN Q6HRS PRN PO PAIN / TEMP; Start 11/10/17 at 17:30 Multi-Ingredient Ointment (Analgesic [place]) 1 lian PRN QID PRN TP MUSCLE PAIN; Start 11/10/17 at 17:30 Al Hydroxide/Mg Hydroxide (Mylanta Plus Xs) 15 ml PRN AFTMEALHC PRN PO DYSPEPSIA; Start 11/10/17 at 17:30 Magnesium Hydroxide (Milk Of Magnesia) 2,400 mg PRN QHS PRN PO CONSTIPATION Last administered on 11/21/17t 11:32; Start 11/10/17 at 17:30 Acetaminophen (Tylenol) take 1-2 tablets PRN ... PRN QID PRN PO PAIN; Start at 18:00; Stop 11/10/17 at 18:24; Status DC Atorvastatin Calcium (Lipitor) 10 mg QHS PO Last administered on 11/24/17at 19:02 ; Start 11/10/17 at 21:00 Buspirone HCl (Buspar) 10 mg BID PO Last administered on 11/16/17 09:36; Start 11/10/17 at 21:00; Stop 11/16/17 at 16:52; Status DC Donepezil HCl (Aricept) 10 mg DAILY PO Last administered on 11/24/17 08:38; Start 11/11/17 at 09:00 Lisinopril (Prinivil) 20 mg DAILY PO Last administered on 11/24/17 08:38; Start 11/11/17 at 09:00 Lorazepam (Ativan) 0.5 mg PRN Q6HRS PRN PO AGITATION Last administered on 11/15 16:23; Start 11/10/17 at 18:00 Memantine (Namenda) 10 mg BID PO Last administered on 11/24/17 19:02; Start at 21:00 Mirtazapine (Remeron) 15 mg QHS PO Last administered on 11/24/17 19:02; Start 11/10/17 at 21:00 Citalopram Hydrobromide (CeleXA) 40 mg DAILY PO ; Start 11/11/17 at 09:00; Stop 11/11/17 at 09:00; Status DC Acetaminophen (Tylenol) 325 mg PRN Q6HRS PRN PO PAIN; Start 11/10/17 at 18:30 Sertraline HCl (Zoloft) 50 mg DAILY PO Last administered on 11/16/17 09:36; Start 11/11/17 at 09:00; Stop 11/16/17 at 18:13; Status DC Vitamin D (Vitamin D3) 50,000 unit WEEKLY PO ; Start 11/11/17 at 18:00; Stop 11/11/17 at 18:20; Status DC Vitamin D (Vitamin D3) 50,000 unit WEEKLY PO Last administered on 11/19/17 07 :54; Start 11/12/17 at 09:00 Trazodone HCl (Desyrel) 50 mg PRN QHS PRN PO INSOMNIA, MAY REPEAT X1 Last administered on 11/18/17 22:26; Start 11/12/17 at 18:00 Cyanocobalamin (Vitamin B-12) 1,000 mcg DAILY PO Last administered on 11/24/17 08:38; Start 11/17/17 at 09:00 Buspirone HCl (Buspar) 10 mg TID PO Last administered on 11/24/17 19:02; Start 11/16/17 at 21:00 Sertraline HCl (Zoloft) 75 mg DAILY PO Last administered on 11/24/17 08:39; Start 11/17/17 at 09:00 Risperidone (RisperDAL) 0.125 mg HS PO Last administered on 11/22/17 19:56; Start 11/18/17 at 21:00; Stop 11/23/17 at 18:05; Status DC Risperidone (RisperDAL) 0.25 mg HS PO Last administered on 11/24/17 19:02; Start 11/23/17 at 21:00 Active Scripts Active Reported Ativan (Lorazepam) 0.5 Mg Tablet 0.5 Mg PO PRN Q6HRS PRN Calmoseptine Ointment (Menthol/Zinc Oxide) 3.5 Gm Oint.pack 3.5 Gm TP PRN Tylenol (Acetaminophen) 325 Mg Tablet 1-2 Tab PO PRN QID PRN Mirtazapine 15 Mg Tablet 15 Mg PO QHS Namenda (Memantine Hcl) 10 Mg Tablet 10 Mg PO BID Buspirone Hcl 10 Mg Tablet 10 Mg PO BID Lisinopril 20 Mg Tablet 20 Mg PO DAILY Donepezil Hcl 10 Mg Tablet 10 Mg PO DAILY Celexa (Citalopram Hydrobromide) 40 Mg Tablet 40 Mg PO DAILY Atorvastatin Calcium 10 Mg Tablet 10 Mg PO QHS I have reviewed the current psychotropics carefully including drug interactions. Risk benefit ratio favors no change other than as noted in my dictated progress note. Diagnosis: Problems: (1) Anxiety disorder (2) Impulse control disorder (3) Dementia, vascular, with depression (4) Dementia, vascular, with delusions (5) Dementia in Alzheimer's disease with delusions (6) Dementia of the Alzheimer's type with early onset with behavioral disturbance JAKUB MURRAY MD Nov 24, 2017 20:03
--- NOTE | 2017-11-25 04:15 | PN ---
DATE: PSYCHIATRIC PROGRESS NOTE This is a late entry for 11/23/2017, covers the elements not covered in my initial note of 11/23/2017. SUBJECTIVE: I met with the patient evening of 11/23/2017. The patient remains somewhat paranoid, seems to laugh out and seems to be talking when no one is around her, possible hallucinations. REVIEW OF SYSTEMS: No CV, , pulmonary, eye, ENT system symptoms on review. Reliability poor. MENTAL STATUS EXAM: Oriented to herself. Insight, judgment, recent and remote memory, attention, concentration, fund of knowledge poor, consistent with her diagnosis. She is pleasant, had a gentle smile on her face as she has met with me, oblivious of her circumstances. LABORATORY DATA: Reviewed. IMPRESSION: Major neurocognitive disorder, Alzheimer, vascular with delusion, depression, behavioral disturbance. Rest unchanged. PLAN: Continue psychotropics mentioned in my initial note, increase Risperdal from 0.125 mg at bedtime to 0.25 mg at bedtime. MAN Ke MURRAY MD DR: CHRISTINA/elizabeth JOB#: [id number] / [id number]
[2017-11-25 06:02] VITALS: BP 115/75
[2017-11-25] MEDS: busPIRone 10 MG TABLET. PO SCH ×3 (09:19→19:36)
[2017-11-25] MEDS: MEMANTINE 10 MG TABLET. PO SCH ×2 (09:20→19:36)
[2017-11-25] MEDS: DONEPEZIL HCL 10 MG TABLET PO SCH (09:20)
[2017-11-25] MEDS: SERTRALINE 50 MG TABLET. PO SCH (09:20)
[2017-11-25] MEDS: CYANOCOBALAMIN (VITAMIN B-12) 1,000 MCG TABLET. PO SCH (09:20)
[2017-11-25] MEDS: LISINOPRIL 20 MG TABLET PO SCH (09:20)
[2017-11-25 15:41] VITALS: BP 128/76
[2017-11-25] MEDS: risperiDONE 0.25 MG TABLET. PO SCH (19:36)
[2017-11-25] MEDS: MIRTAZAPINE 15 MG TABLET PO SCH (19:36)
[2017-11-25] MEDS: ATORVASTATIN CALCIUM 10 MG TABLET. PO SCH (19:36)
--- NOTE | 2017-11-25 20:02 | PDOC ---
Exam Note: Saeed Note: Please also refer to the separate dictated note~for this date of service dictated separately.~Patient seen individually. Discussed the patient with Nursing staff reviewed the chart.~Reviewed interim history and current functioning. Reviewed vital signs,~Labs/ Radiology~and current medications noted below. Continue current treatment with the changes noted in the dictated addendum note Assessment: Vital Signs: Vital Signs Date Time Temp Pulse Resp B/P (MAP) Pulse Ox O2 Delivery O2 Flow Rate FiO2 11/25/17 15:41 97.3 91 21 128/76 (93) 93 11/25/17 06:02 Room Air I&O Intake and Output 11/25/17 07:00 Intake Total 1080 ml Balance 1080 ml Intake Oral 1080 ml # Bowel Movements 2 Current Medications: Meds: Current Medications Trimethoprim/ Sulfamethoxazole (Bactrim Ds) 1 tab 1X ONCE PO Last administered on 11/10/17 16:57; Start 11/10/17 at 17:00; Stop 11/10/17 at 17 :01; Status DC Trimethoprim/ Sulfamethoxazole (Bactrim Ds) 1 tab STK-MED ONCE PO ; Start 11/10 at 16:56; Stop 11/10/17 at 16:57; Status DC Acetaminophen (Tylenol) 650 mg PRN Q6HRS PRN PO PAIN / TEMP; Start 11/10/17 at 17:30 Multi-Ingredient Ointment (Analgesic [place]) 1 lian PRN QID PRN TP MUSCLE PAIN; Start 11/10/17 at 17:30 Al Hydroxide/Mg Hydroxide (Mylanta Plus Xs) 15 ml PRN AFTMEALHC PRN PO DYSPEPSIA; Start 11/10/17 at 17:30 Magnesium Hydroxide (Milk Of Magnesia) 2,400 mg PRN QHS PRN PO CONSTIPATION Last administered on 11/21/17t 11:32; Start 11/10/17 at 17:30 Acetaminophen (Tylenol) take 1-2 tablets PRN ... PRN QID PRN PO PAIN; Start at 18:00; Stop 11/10/17 at 18:24; Status DC Atorvastatin Calcium (Lipitor) 10 mg QHS PO Last administered on 11/25/17at 19:36 ; Start 11/10/17 at 21:00 Buspirone HCl (Buspar) 10 mg BID PO Last administered on 11/16/17 09:36; Start 11/10/17 at 21:00; Stop 11/16/17 at 16:52; Status DC Donepezil HCl (Aricept) 10 mg DAILY PO Last administered on 11/25/17 09:20; Start 11/11/17 at 09:00 Lisinopril (Prinivil) 20 mg DAILY PO Last administered on 11/25/17 09:20; Start 11/11/17 at 09:00 Lorazepam (Ativan) 0.5 mg PRN Q6HRS PRN PO AGITATION Last administered on 11/15 16:23; Start 11/10/17 at 18:00 Memantine (Namenda) 10 mg BID PO Last administered on 11/25/17 19:36; Start at 21:00 Mirtazapine (Remeron) 15 mg QHS PO Last administered on 11/25/17 19:36; Start 11/10/17 at 21:00 Citalopram Hydrobromide (CeleXA) 40 mg DAILY PO ; Start 11/11/17 at 09:00; Stop 11/11/17 at 09:00; Status DC Acetaminophen (Tylenol) 325 mg PRN Q6HRS PRN PO PAIN; Start 11/10/17 at 18:30 Sertraline HCl (Zoloft) 50 mg DAILY PO Last administered on 11/16/17 09:36; Start 11/11/17 at 09:00; Stop 11/16/17 at 18:13; Status DC Vitamin D (Vitamin D3) 50,000 unit WEEKLY PO ; Start 11/11/17 at 18:00; Stop 11/11/17 at 18:20; Status DC Vitamin D (Vitamin D3) 50,000 unit WEEKLY PO Last administered on 11/19/17 07 :54; Start 11/12/17 at 09:00 Trazodone HCl (Desyrel) 50 mg PRN QHS PRN PO INSOMNIA, MAY REPEAT X1 Last administered on 11/18/17 22:26; Start 11/12/17 at 18:00 Cyanocobalamin (Vitamin B-12) 1,000 mcg DAILY PO Last administered on 11/25/17 09:20; Start 11/17/17 at 09:00 Buspirone HCl (Buspar) 10 mg TID PO Last administered on 11/25/17 19:36; Start 11/16/17 at 21:00 Sertraline HCl (Zoloft) 75 mg DAILY PO Last administered on 11/25/17 09:20; Start 11/17/17 at 09:00 Risperidone (RisperDAL) 0.125 mg HS PO Last administered on 11/22/17 19:56; Start 11/18/17 at 21:00; Stop 11/23/17 at 18:05; Status DC Risperidone (RisperDAL) 0.25 mg HS PO Last administered on 11/25/17 19:36; Start 11/23/17 at 21:00 Active Scripts Active Reported Ativan (Lorazepam) 0.5 Mg Tablet 0.5 Mg PO PRN Q6HRS PRN Calmoseptine Ointment (Menthol/Zinc Oxide) 3.5 Gm Oint.pack 3.5 Gm TP PRN Tylenol (Acetaminophen) 325 Mg Tablet 1-2 Tab PO PRN QID PRN Mirtazapine 15 Mg Tablet 15 Mg PO QHS Namenda (Memantine Hcl) 10 Mg Tablet 10 Mg PO BID Buspirone Hcl 10 Mg Tablet 10 Mg PO BID Lisinopril 20 Mg Tablet 20 Mg PO DAILY Donepezil Hcl 10 Mg Tablet 10 Mg PO DAILY Celexa (Citalopram Hydrobromide) 40 Mg Tablet 40 Mg PO DAILY Atorvastatin Calcium 10 Mg Tablet 10 Mg PO QHS I have reviewed the current psychotropics carefully including drug interactions. Risk benefit ratio favors no change other than as noted in my dictated progress note. Diagnosis: Problems: (1) Anxiety disorder (2) Impulse control disorder (3) Dementia, vascular, with depression (4) Dementia, vascular, with delusions (5) Dementia in Alzheimer's disease with delusions (6) Dementia of the Alzheimer's type with early onset with behavioral disturbance JAKUB MURRAY MD Nov 25, 2017 20:02
[2017-11-26 05:41] VITALS: BP 102/53
[2017-11-26 07:38] LABS: BASO # 0.1 x10^3/uL (0.0-0.2); BASO % 1 % (0-3); EOS # 0.1 x10^3/uL (0.0-0.7); EOS % 1 % (0-3); HEMATOCRIT 37.7 % (36.0-47.0); HEMOGLOBIN 12.5 g/dL (12.0-15.5); LYMPH # 1.9 x10^3/uL (1.0-4.8); LYMPH % 22 % (24-48); MEAN CORPUSCULAR HEMOGLOBIN 29 pg (25-35); MEAN CORPUSCULAR HGB CONC 33 g/dL (31-37); MEAN CORPUSCULAR VOLUME 88 fL (79-100); MONO # 0.5 x10^3/uL (0.0-1.1); MONO % 6 % (0-9); NEUT # 6.1 x10^3uL (1.8-7.7); NEUT % 71 % (31-73); PLATELET COUNT 196 x10^3/uL (140-400); RED BLOOD COUNT 4.27 x10^6/uL (3.50-5.40); WHITE BLOOD COUNT 8.7 x10^3/uL (4.0-11.0)
[2017-11-26 08:01] LABS: ALBUMIN 3.7 g/dL (3.4-5.0); ALBUMIN/GLOBULIN RATIO 1.1 (1.0-1.7); CALCIUM 9.1 mg/dL (8.5-10.1); CREATININE 0.9 mg/dL (0.6-1.0); GFR 63.9; POTASSIUM 3.9 mmol/L (3.5-5.1); TOTAL BILIRUBIN 0.6 mg/dL (0.2-1.0); TOTAL PROTEIN 7.2 g/dL (6.4-8.2)
[2017-11-26] MEDS: DONEPEZIL HCL 10 MG TABLET PO SCH (09:30)
[2017-11-26] MEDS: MEMANTINE 10 MG TABLET. PO SCH ×2 (09:30→19:28)
[2017-11-26] MEDS: CYANOCOBALAMIN (VITAMIN B-12) 1,000 MCG TABLET. PO SCH (09:30)
[2017-11-26] MEDS: busPIRone 10 MG TABLET. PO SCH ×3 (09:30→19:27)
[2017-11-26] MEDS: SERTRALINE 50 MG TABLET. PO SCH (09:31)
[2017-11-26] MEDS: LISINOPRIL 20 MG TABLET PO SCH (09:32)
[2017-11-26] MEDS: CHOLECALCIFEROL (VITAMIN D3) 50,000 UNIT CAPSULE PO SCH (09:33)
[2017-11-26 15:49] VITALS: BP 105/66
[2017-11-26] MEDS: ATORVASTATIN CALCIUM 10 MG TABLET. PO SCH (19:27)
[2017-11-26] MEDS: MIRTAZAPINE 15 MG TABLET PO SCH (19:28)
[2017-11-26] MEDS: risperiDONE 0.25 MG TABLET. PO SCH (19:28)
--- NOTE | 2017-11-26 20:14 | PDOC ---
Exam Note: Saeed Note: Please also refer to the separate dictated note~for this date of service dictated separately.~Patient seen individually. Discussed the patient with Nursing staff reviewed the chart.~Reviewed interim history and current functioning. Reviewed vital signs,~Labs/ Radiology~and current medications noted below. Continue current treatment with the changes noted in the dictated addendum note Assessment: Vital Signs: Vital Signs Date Time Temp Pulse Resp B/P (MAP) Pulse Ox O2 Delivery O2 Flow Rate FiO2 11/26/17 15:49 98.4 98 20 105/66 (79) 97 11/25/17 06:02 Room Air I&O Intake and Output 11/26/17 07:00 Intake Total 1080 ml Balance 1080 ml Intake Oral 1080 ml # Bowel Movements 1 Labs: Laboratory Tests Test 11/26/17 07:26 White Blood Count 8.7 x10^3/uL (4.0-11.0) Red Blood Count 4.27 x10^6/uL (3.50-5.40) Hemoglobin 12.5 g/dL (12.0-15.5) Hematocrit 37.7 % (36.0-47.0) Mean Corpuscular Volume 88 fL (79-100) Mean Corpuscular Hemoglobin 29 pg (25-35) Mean Corpuscular Hemoglobin Concent 33 g/dL (31-37) Red Cell Distribution Width 14.0 % (11.5-14.5) Platelet Count 196 x10^3/uL (140-400) Neutrophils (%) (Auto) 71 % (31-73) Lymphocytes (%) (Auto) 22 % (24-48) L Monocytes (%) (Auto) 6 % (0-9) Eosinophils (%) (Auto) 1 % (0-3) Basophils (%) (Auto) 1 % (0-3) Neutrophils # (Auto) 6.1 x10^3uL (1.8-7.7) Lymphocytes # (Auto) 1.9 x10^3/uL (1.0-4.8) Monocytes # (Auto) 0.5 x10^3/uL (0.0-1.1) Eosinophils # (Auto) 0.1 x10^3/uL (0.0-0.7) Basophils # (Auto) 0.1 x10^3/uL (0.0-0.2) Sodium Level 143 mmol/L (136-145) Potassium Level 3.9 mmol/L (3.5-5.1) Chloride Level 106 mmol/L (98-107) Carbon Dioxide Level 29 mmol/L (21-32) Anion Gap 8 (6-14) Blood Urea Nitrogen 22 mg/dL (7-20) H Creatinine 0.9 mg/dL (0.6-1.0) Estimated GFR (Cockcroft-Gault) 63.9 BUN/Creatinine Ratio 24 (6-20) H Glucose Level 86 mg/dL (70-99) Calcium Level 9.1 mg/dL (8.5-10.1) Magnesium Level 2.0 mg/dL (1.8-2.4) Total Bilirubin 0.6 mg/dL (0.2-1.0) Aspartate Amino Transferase (AST) 24 U/L (15-37) Alanine Aminotransferase (ALT) 41 U/L (14-59) Alkaline Phosphatase 109 U/L (46-116) Total Protein 7.2 g/dL (6.4-8.2) Albumin 3.7 g/dL (3.4-5.0) Albumin/Globulin Ratio 1.1 (1.0-1.7) Current Medications: Meds: Current Medications Trimethoprim/ Sulfamethoxazole (Bactrim Ds) 1 tab 1X ONCE PO Last administered on 11/10/17 16:57; Start 11/10/17 at 17:00; Stop 11/10/17 at 17 :01; Status DC Trimethoprim/ Sulfamethoxazole (Bactrim Ds) 1 tab STK-MED ONCE PO ; Start 11/10 at 16:56; Stop 11/10/17 at 16:57; Status DC Acetaminophen (Tylenol) 650 mg PRN Q6HRS PRN PO PAIN / TEMP; Start 11/10/17 at 17:30 Multi-Ingredient Ointment (Analgesic [place]) 1 lian PRN QID PRN TP MUSCLE PAIN; Start 11/10/17 at 17:30 Al Hydroxide/Mg Hydroxide (Mylanta Plus Xs) 15 ml PRN AFTMEALHC PRN PO DYSPEPSIA; Start 11/10/17 at 17:30 Magnesium Hydroxide (Milk Of Magnesia) 2,400 mg PRN QHS PRN PO CONSTIPATION Last administered on 11/21/17t 11:32; Start 11/10/17 at 17:30 Acetaminophen (Tylenol) take 1-2 tablets PRN ... PRN QID PRN PO PAIN; Start at 18:00; Stop 11/10/17 at 18:24; Status DC Atorvastatin Calcium (Lipitor) 10 mg QHS PO Last administered on 11/26/17 19:27 ; Start 11/10/17 at 21:00 Buspirone HCl (Buspar) 10 mg BID PO Last administered on 11/16/17 09:36; Start 11/10/17 at 21:00; Stop 11/16/17 at 16:52; Status DC Donepezil HCl (Aricept) 10 mg DAILY PO Last administered on 11/26/17 09:30; Start 11/11/17 at 09:00 Lisinopril (Prinivil) 20 mg DAILY PO Last administered on 11/26/17 09:32; Start 11/11/17 at 09:00 Lorazepam (Ativan) 0.5 mg PRN Q6HRS PRN PO AGITATION Last administered on 11/15 16:23; Start 11/10/17 at 18:00 Memantine (Namenda) 10 mg BID PO Last administered on 11/26/17 19:28; Start at 21:00 Mirtazapine (Remeron) 15 mg QHS PO Last administered on 11/26/17 19:28; Start 11/10/17 at 21:00 Citalopram Hydrobromide (CeleXA) 40 mg DAILY PO ; Start 11/11/17 at 09:00; Stop 11/11/17 at 09:00; Status DC Acetaminophen (Tylenol) 325 mg PRN Q6HRS PRN PO PAIN; Start 11/10/17 at 18:30 Sertraline HCl (Zoloft) 50 mg DAILY PO Last administered on 11/16/17 09:36; Start 11/11/17 at 09:00; Stop 11/16/17 at 18:13; Status DC Vitamin D (Vitamin D3) 50,000 unit WEEKLY PO ; Start 11/11/17 at 18:00; Stop 11/11/17 at 18:20; Status DC Vitamin D (Vitamin D3) 50,000 unit WEEKLY PO Last administered on 11/26/17 09: 33; Start 11/12/17 at 09:00 Trazodone HCl (Desyrel) 50 mg PRN QHS PRN PO INSOMNIA, MAY REPEAT X1 Last administered on 11/18/17t 22:26; Start 11/12/17 at 18:00 Cyanocobalamin (Vitamin B-12) 1,000 mcg DAILY PO Last administered on 11/26/17 09:30; Start 11/17/17 at 09:00 Buspirone HCl (Buspar) 10 mg TID PO Last administered on 11/26/17 19:27; Start 11/16/17 at 21:00 Sertraline HCl (Zoloft) 75 mg DAILY PO Last administered on 11/26/17 09:31; Start 11/17/17 at 09:00 Risperidone (RisperDAL) 0.125 mg HS PO Last administered on 11/22/17 19:56; Start 11/18/17 at 21:00; Stop 11/23/17 at 18:05; Status DC Risperidone (RisperDAL) 0.25 mg HS PO Last administered on 11/26/17 19:28; Start 11/23/17 at 21:00 Active Scripts Active Reported Ativan (Lorazepam) 0.5 Mg Tablet 0.5 Mg PO PRN Q6HRS PRN Calmoseptine Ointment (Menthol/Zinc Oxide) 3.5 Gm Oint.pack 3.5 Gm TP PRN Tylenol (Acetaminophen) 325 Mg Tablet 1-2 Tab PO PRN QID PRN Mirtazapine 15 Mg Tablet 15 Mg PO QHS Namenda (Memantine Hcl) 10 Mg Tablet 10 Mg PO BID Buspirone Hcl 10 Mg Tablet 10 Mg PO BID Lisinopril 20 Mg Tablet 20 Mg PO DAILY Donepezil Hcl 10 Mg Tablet 10 Mg PO DAILY Celexa (Citalopram Hydrobromide) 40 Mg Tablet 40 Mg PO DAILY Atorvastatin Calcium 10 Mg Tablet 10 Mg PO QHS I have reviewed the current psychotropics carefully including drug interactions. Risk benefit ratio favors no change other than as noted in my dictated progress note. Diagnosis: Problems: (1) Anxiety disorder (2) Impulse control disorder (3) Dementia, vascular, with depression (4) Dementia, vascular, with delusions (5) Dementia in Alzheimer's disease with delusions (6) Dementia of the Alzheimer's type with early onset with behavioral disturbance JAKUB MURRAY MD Nov 26, 2017 20:14
[2017-11-27 05:43] VITALS: BP 102/59
[2017-11-27] MEDS: MEMANTINE 10 MG TABLET. PO SCH ×2 (07:39→20:40)
[2017-11-27] MEDS: DONEPEZIL HCL 10 MG TABLET PO SCH (07:39)
[2017-11-27] MEDS: CYANOCOBALAMIN (VITAMIN B-12) 1,000 MCG TABLET. PO SCH (07:39)
[2017-11-27] MEDS: busPIRone 10 MG TABLET. PO SCH ×3 (07:40→20:40)
[2017-11-27] MEDS: SERTRALINE 50 MG TABLET. PO SCH (07:40)
[2017-11-27] MEDS: LISINOPRIL 20 MG TABLET PO SCH (07:40)
--- NOTE | 2017-11-27 07:48 | PN ---
DATE: 11/25/2017 PSYCHIATRIC PROGRESS NOTE This is a late entry 11/25/2017, covers elements not covered in my initial note of 11/25/2017. Met with the patient in the evening of 11/25/2017. The patient slept 6 hours previous evening, confused, cooperative, has inappropriate laughter, possible hallucinations, but these are improved. REVIEW OF SYSTEMS: No CV, , pulmonary, eye, ENT system symptoms on review. Reliability poor. MENTAL STATUS EXAM: Oriented to herself. Insight, judgment, recent and remote memory, attention, concentration, fund of knowledge poor, consistent with her diagnosis mentioned in my initial note. IMPRESSION: Major neurocognitive disorder, Alzheimer, vascular with depression, delusion, behavioral disturbance. Rest unchanged. PLAN: Continue psychotropics mentioned in my initial note. MAN Ke MURRAY MD DR: CHRISTINA/elizabeth JOB#: [id number] / [id number]
[2017-11-27] MEDS ORDERED: ACET325T9 PO (15:10)
[2017-11-27] MEDS ORDERED: CHOL500021 PO (15:14)
[2017-11-27] MEDS ORDERED: MAG355OR12 PO (15:15)
[2017-11-27] MEDS ORDERED: CYAN10005 PO (15:15)
[2017-11-27] MEDS ORDERED: MAGN2400 PO (15:16)
[2017-11-27] MEDS ORDERED: MENT113G6 TP (15:16)
[2017-11-27] MEDS ORDERED: RISP0.2519 PO (15:17)
[2017-11-27] MEDS ORDERED: SERT50TA PO (15:17)
[2017-11-27] MEDS ORDERED: TRAZ50TA15 PO (15:18)
[2017-11-27 15:45] VITALS: BP 140/85
[2017-11-27] MEDS: risperiDONE 0.25 MG TABLET. PO SCH (20:40)
[2017-11-27] MEDS: ATORVASTATIN CALCIUM 10 MG TABLET. PO SCH (20:40)
[2017-11-27] MEDS: MIRTAZAPINE 15 MG TABLET PO SCH (20:40)
--- NOTE | 2017-11-27 22:12 | PDOC ---
Exam Note: Saeed Note: Please also refer to the separate dictated note~for this date of service dictated separately.~Patient seen individually. Discussed the patient with Nursing staff reviewed the chart.~Reviewed interim history and current functioning. Reviewed vital signs,~Labs/ Radiology~and current medications noted below. Continue current treatment with the changes noted in the dictated addendum note Assessment: Vital Signs: Vital Signs Date Time Temp Pulse Resp B/P (MAP) Pulse Ox O2 Delivery O2 Flow Rate FiO2 11/27/17 15:45 98.3 99 18 140/85 (103) 97 Room Air I&O Intake and Output 11/27/17 06:59 Intake Total 720 ml Balance 720 ml Intake Oral 720 ml # Voids 2 # Bowel Movements 1 Current Medications: Meds: Current Medications Trimethoprim/ Sulfamethoxazole (Bactrim Ds) 1 tab 1X ONCE PO Last administered on 11/10/17t 16:57; Start 11/10/17 at 17:00; Stop 11/10/17 at 17 :01; Status DC Trimethoprim/ Sulfamethoxazole (Bactrim Ds) 1 tab STK-MED ONCE PO ; Start 11/10 at 16:56; Stop 11/10/17 at 16:57; Status DC Acetaminophen (Tylenol) 650 mg PRN Q6HRS PRN PO PAIN / TEMP; Start 11/10/17 at 17:30 Multi-Ingredient Ointment (Analgesic [place]) 1 lian PRN QID PRN TP MUSCLE PAIN; Start 11/10/17 at 17:30 Al Hydroxide/Mg Hydroxide (Mylanta Plus Xs) 15 ml PRN AFTMEALHC PRN PO DYSPEPSIA; Start 11/10/17 at 17:30 Magnesium Hydroxide (Milk Of Magnesia) 2,400 mg PRN QHS PRN PO CONSTIPATION Last administered on 11/21/17t 11:32; Start 11/10/17 at 17:30 Acetaminophen (Tylenol) take 1-2 tablets PRN ... PRN QID PRN PO PAIN; Start at 18:00; Stop 11/10/17 at 18:24; Status DC Atorvastatin Calcium (Lipitor) 10 mg QHS PO Last administered on 11/27/17at 20:40 ; Start 11/10/17 at 21:00 Buspirone HCl (Buspar) 10 mg BID PO Last administered on 11/16/17 09:36; Start 11/10/17 at 21:00; Stop 11/16/17 at 16:52; Status DC Donepezil HCl (Aricept) 10 mg DAILY PO Last administered on 11/27/17 07:39; Start 11/11/17 at 09:00 Lisinopril (Prinivil) 20 mg DAILY PO Last administered on 11/26/17 09:32; Start 11/11/17 at 09:00 Lorazepam (Ativan) 0.5 mg PRN Q6HRS PRN PO AGITATION Last administered on 11/15 16:23; Start 11/10/17 at 18:00 Memantine (Namenda) 10 mg BID PO Last administered on 11/27/17 20:40; Start at 21:00 Mirtazapine (Remeron) 15 mg QHS PO Last administered on 11/27/17 20:40; Start 11/10/17 at 21:00 Citalopram Hydrobromide (CeleXA) 40 mg DAILY PO ; Start 11/11/17 at 09:00; Stop 11/11/17 at 09:00; Status DC Acetaminophen (Tylenol) 325 mg PRN Q6HRS PRN PO PAIN; Start 11/10/17 at 18:30 Sertraline HCl (Zoloft) 50 mg DAILY PO Last administered on 11/16/17 09:36; Start 11/11/17 at 09:00; Stop 11/16/17 at 18:13; Status DC Vitamin D (Vitamin D3) 50,000 unit WEEKLY PO ; Start 11/11/17 at 18:00; Stop 11/11/17 at 18:20; Status DC Vitamin D (Vitamin D3) 50,000 unit WEEKLY PO Last administered on 11/26/17 09: 33; Start 11/12/17 at 09:00 Trazodone HCl (Desyrel) 50 mg PRN QHS PRN PO INSOMNIA, MAY REPEAT X1 Last administered on 11/18/17 22:26; Start 11/12/17 at 18:00 Cyanocobalamin (Vitamin B-12) 1,000 mcg DAILY PO Last administered on 11/27/17 07:39; Start 11/17/17 at 09:00 Buspirone HCl (Buspar) 10 mg TID PO Last administered on 11/27/17at 20:40; Start 11/16/17 at 21:00 Sertraline HCl (Zoloft) 75 mg DAILY PO Last administered on 11/27/17at 07:40; Start 11/17/17 at 09:00 Risperidone (RisperDAL) 0.125 mg HS PO Last administered on 11/22/17at 19:56; Start 11/18/17 at 21:00; Stop 11/23/17 at 18:05; Status DC Risperidone (RisperDAL) 0.25 mg HS PO Last administered on 11/27/17at 20:40; Start 11/23/17 at 21:00 Active Scripts Active Reported Trazodone Hcl 50 Mg Tablet 50 Mg PO PRN QHS PRN Risperdal (Risperidone) 0.25 Mg Tablet 0.25 Mg PO HS Zoloft (Sertraline Hcl) 50 Mg Tablet 75 Mg PO DAILY [place] (Menthol) 113 Gm Gel..gram. 1 Applic TP PRN QID PRN Milk Of Magnesia (Magnesium Hydroxide) 2,400 Mg/10 Ml Oral.susp 2,400 Mg PO PRN QHS PRN Maalox Maximum Strength Susp (Mag Hydrox/Al Hydrox/Simeth) 355 Ml Oral.susp 15 Ml PO PRN AFTMEALHC PRN Vitamin B-12 (Cyanocobalamin (Vitamin B-12)) 1,000 Mcg Tablet 1,000 Mcg PO DAILY D3-50 (Cholecalciferol (Vitamin D3)) 50,000 Unit Capsule 50,000 Unit PO QFR Tylenol (Acetaminophen) 325 Mg Tablet 325 Mg PO PRN Q6HRS PRN Ativan (Lorazepam) 0.5 Mg Tablet 0.5 Mg PO PRN Q6HRS PRN Calmoseptine Ointment (Menthol/Zinc Oxide) 3.5 Gm Oint.pack 3.5 Gm TP PRN Tylenol (Acetaminophen) 325 Mg Tablet 1-2 Tab PO PRN QID PRN Mirtazapine 15 Mg Tablet 15 Mg PO QHS Namenda (Memantine Hcl) 10 Mg Tablet 10 Mg PO BID Buspirone Hcl 10 Mg Tablet 10 Mg PO BID Lisinopril 20 Mg Tablet 20 Mg PO DAILY Donepezil Hcl 10 Mg Tablet 10 Mg PO DAILY Celexa (Citalopram Hydrobromide) 40 Mg Tablet 40 Mg PO DAILY Atorvastatin Calcium 10 Mg Tablet 10 Mg PO QHS I have reviewed the current psychotropics carefully including drug interactions. Risk benefit ratio favors no change other than as noted in my dictated progress note. Diagnosis: Problems: (1) Anxiety disorder (2) Impulse control disorder (3) Dementia, vascular, with depression (4) Dementia, vascular, with delusions (5) Dementia in Alzheimer's disease with delusions (6) Dementia of the Alzheimer's type with early onset with behavioral disturbance JAKUB MURRAY MD Nov 27, 2017 22:12
[2017-11-28 06:02] VITALS: BP 134/74
[2017-11-28] MEDS: MEMANTINE 10 MG TABLET. PO SCH ×2 (08:36→20:45)
[2017-11-28] MEDS: DONEPEZIL HCL 10 MG TABLET PO SCH (08:36)
[2017-11-28] MEDS: CYANOCOBALAMIN (VITAMIN B-12) 1,000 MCG TABLET. PO SCH (08:36)
[2017-11-28] MEDS: busPIRone 10 MG TABLET. PO SCH ×3 (08:36→20:40)
[2017-11-28] MEDS: SERTRALINE 50 MG TABLET. PO SCH (08:37)
[2017-11-28] MEDS: LISINOPRIL 20 MG TABLET PO SCH (08:37)
[2017-11-28] MEDS ORDERED: NEOM1PAC TP (13:35)
[2017-11-28 16:26] VITALS: BP 111/74
--- NOTE | 2017-11-28 20:16 | PDOC ---
Exam Note: Saeed Note: Please also refer to the separate dictated note~for this date of service dictated separately.~Patient seen individually. Discussed the patient with Nursing staff reviewed the chart.~Reviewed interim history and current functioning. Reviewed vital signs,~Labs/ Radiology~and current medications noted below. Continue current treatment with the changes noted in the dictated addendum note Assessment: Vital Signs: Vital Signs Date Time Temp Pulse Resp B/P (MAP) Pulse Ox O2 Delivery O2 Flow Rate FiO2 11/28/17 16:26 97.1 92 20 111/74 (86) 96 Room Air I&O Intake and Output 11/28/17 07:00 Intake Total 840 ml Balance 840 ml Intake Oral 840 ml # Voids 2 # Bowel Movements 1 Current Medications: Meds: Current Medications Trimethoprim/ Sulfamethoxazole (Bactrim Ds) 1 tab 1X ONCE PO Last administered on 11/10/17 16:57; Start 11/10/17 at 17:00; Stop 11/10/17 at 17 :01; Status DC Trimethoprim/ Sulfamethoxazole (Bactrim Ds) 1 tab STK-MED ONCE PO ; Start 11/10 at 16:56; Stop 11/10/17 at 16:57; Status DC Acetaminophen (Tylenol) 650 mg PRN Q6HRS PRN PO PAIN / TEMP; Start 11/10/17 at 17:30 Multi-Ingredient Ointment (Analgesic [place]) 1 lian PRN QID PRN TP MUSCLE PAIN; Start 11/10/17 at 17:30 Al Hydroxide/Mg Hydroxide (Mylanta Plus Xs) 15 ml PRN AFTMEALHC PRN PO DYSPEPSIA; Start 11/10/17 at 17:30 Magnesium Hydroxide (Milk Of Magnesia) 2,400 mg PRN QHS PRN PO CONSTIPATION Last administered on 11/21/17t 11:32; Start 11/10/17 at 17:30 Acetaminophen (Tylenol) take 1-2 tablets PRN ... PRN QID PRN PO PAIN; Start at 18:00; Stop 11/10/17 at 18:24; Status DC Atorvastatin Calcium (Lipitor) 10 mg QHS PO Last administered on 11/27/17at 20:40 ; Start 11/10/17 at 21:00 Buspirone HCl (Buspar) 10 mg BID PO Last administered on 11/16/17 09:36; Start 11/10/17 at 21:00; Stop 11/16/17 at 16:52; Status DC Donepezil HCl (Aricept) 10 mg DAILY PO Last administered on 11/28/17 08:36; Start 11/11/17 at 09:00 Lisinopril (Prinivil) 20 mg DAILY PO Last administered on 11/28/17 08:37; Start 11/11/17 at 09:00 Lorazepam (Ativan) 0.5 mg PRN Q6HRS PRN PO AGITATION Last administered on 11/15 16:23; Start 11/10/17 at 18:00 Memantine (Namenda) 10 mg BID PO Last administered on 11/28/17 08:36; Start at 21:00 Mirtazapine (Remeron) 15 mg QHS PO Last administered on 11/27/17 20:40; Start 11/10/17 at 21:00 Citalopram Hydrobromide (CeleXA) 40 mg DAILY PO ; Start 11/11/17 at 09:00; Stop 11/11/17 at 09:00; Status DC Acetaminophen (Tylenol) 325 mg PRN Q6HRS PRN PO PAIN; Start 11/10/17 at 18:30 Sertraline HCl (Zoloft) 50 mg DAILY PO Last administered on 11/16/17 09:36; Start 11/11/17 at 09:00; Stop 11/16/17 at 18:13; Status DC Vitamin D (Vitamin D3) 50,000 unit WEEKLY PO ; Start 11/11/17 at 18:00; Stop 11/11/17 at 18:20; Status DC Vitamin D (Vitamin D3) 50,000 unit WEEKLY PO Last administered on 11/26/17 09: 33; Start 11/12/17 at 09:00 Trazodone HCl (Desyrel) 50 mg PRN QHS PRN PO INSOMNIA, MAY REPEAT X1 Last administered on 11/18/17 22:26; Start 11/12/17 at 18:00 Cyanocobalamin (Vitamin B-12) 1,000 mcg DAILY PO Last administered on 11/28/17 08:36; Start 11/17/17 at 09:00 Buspirone HCl (Buspar) 10 mg TID PO Last administered on 11/28/17at 13:36; Start 11/16/17 at 21:00 Sertraline HCl (Zoloft) 75 mg DAILY PO Last administered on 11/28/17at 08:37; Start 11/17/17 at 09:00 Risperidone (RisperDAL) 0.125 mg HS PO Last administered on 11/22/17at 19:56; Start 11/18/17 at 21:00; Stop 11/23/17 at 18:05; Status DC Risperidone (RisperDAL) 0.25 mg HS PO Last administered on 11/27/17at 20:40; Start 11/23/17 at 21:00 Neomycin/ Polymyxin/ Bacitracin (Triple Antibiotic Ointment) 1 pkt BID TP ; Start 11/28/17 at 21:00 Active Scripts Active Reported Triple Antibiotic Ointment (Neomy Sulf/Bacitra/Polymyxin B) 1 Each Packet 1 Applic TP BID Trazodone Hcl 50 Mg Tablet 50 Mg PO PRN QHS PRN Risperdal (Risperidone) 0.25 Mg Tablet 0.25 Mg PO HS Zoloft (Sertraline Hcl) 50 Mg Tablet 75 Mg PO DAILY [place] (Menthol) 113 Gm Gel..gram. 1 Applic TP PRN QID PRN Milk Of Magnesia (Magnesium Hydroxide) 2,400 Mg/10 Ml Oral.susp 2,400 Mg PO PRN QHS PRN Maalox Maximum Strength Susp (Mag Hydrox/Al Hydrox/Simeth) 355 Ml Oral.susp 15 Ml PO PRN AFTMEALHC PRN Vitamin B-12 (Cyanocobalamin (Vitamin B-12)) 1,000 Mcg Tablet 1,000 Mcg PO DAILY D3-50 (Cholecalciferol (Vitamin D3)) 50,000 Unit Capsule 50,000 Unit PO QFR Tylenol (Acetaminophen) 325 Mg Tablet 325 Mg PO PRN Q6HRS PRN Ativan (Lorazepam) 0.5 Mg Tablet 0.5 Mg PO PRN Q6HRS PRN Calmoseptine Ointment (Menthol/Zinc Oxide) 3.5 Gm Oint.pack 3.5 Gm TP PRN Tylenol (Acetaminophen) 325 Mg Tablet 1-2 Tab PO PRN QID PRN Mirtazapine 15 Mg Tablet 15 Mg PO QHS Namenda (Memantine Hcl) 10 Mg Tablet 10 Mg PO BID Buspirone Hcl 10 Mg Tablet 10 Mg PO BID Lisinopril 20 Mg Tablet 20 Mg PO DAILY Donepezil Hcl 10 Mg Tablet 10 Mg PO DAILY Celexa (Citalopram Hydrobromide) 40 Mg Tablet 40 Mg PO DAILY Atorvastatin Calcium 10 Mg Tablet 10 Mg PO QHS I have reviewed the current psychotropics carefully including drug interactions. Risk benefit ratio favors no change other than as noted in my dictated progress note. Diagnosis: Problems: (1) Anxiety disorder (2) Impulse control disorder (3) Dementia, vascular, with depression (4) Dementia, vascular, with delusions (5) Dementia in Alzheimer's disease with delusions (6) Dementia of the Alzheimer's type with early onset with behavioral disturbance JAKUB MURRAY MD Nov 28, 2017 20:16
[2017-11-28] MEDS: MIRTAZAPINE 15 MG TABLET PO SCH (20:40)
[2017-11-28] MEDS: risperiDONE 0.25 MG TABLET. PO SCH (20:43)
[2017-11-28] MEDS: NEOMY/BACITR/POLYMYXIN OINT PACKET. TP SCH (20:45)
[2017-11-28] MEDS: ATORVASTATIN CALCIUM 10 MG TABLET. PO SCH (20:45)
--- NOTE | 2017-11-29 02:47 | PN ---
DATE: PSYCHIATRIC PROGRESS NOTE DATE OF SERVICE: 11/26/2017 This late entry 11/26/2017 covers elements not covered in my initial note 11/26/2017. SUBJECTIVE: The patient slept 6-1/4 hours previous evening. 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 Nursing staff took her for a shower. Seems consistent with her dementia, less tearful and the rest of the day was " " per nursing report. LABORATORIES: Unremarkable. REVIEW OF SYSTEMS: No CV, , pulmonary, eye, ENT system symptoms on review. Reliability poor. MENTAL STATUS EXAM: Oriented to herself. Insight, judgment, recent and remote memory, attention, concentration, fund of knowledge poor, consistent with her diagnosis. She is pleasant, smiling, as I met with her oblivious of her surroundings. IMPRESSION: Unchanged from an initial note. Major neurocognitive disorder, Alzheimer, vascular with depression, delusion, behavioral disturbance. PLAN: Continue current psychotropics mentioned in my initial note. JAKUB MURRAY MD DR: CHRISTINA/elizabeth JOB#: [id number] / [id number]
[2017-11-29 05:50] VITALS: BP 110/70
[2017-11-29 08:34] VITALS: BP 110/70
[2017-11-29] MEDS: SERTRALINE 50 MG TABLET. PO SCH (08:34)
[2017-11-29] MEDS: DONEPEZIL HCL 10 MG TABLET PO SCH (08:34)
[2017-11-29] MEDS: CYANOCOBALAMIN (VITAMIN B-12) 1,000 MCG TABLET. PO SCH (08:34)
[2017-11-29] MEDS: busPIRone 10 MG TABLET. PO SCH ×2 (08:34→13:33)
[2017-11-29] MEDS: MEMANTINE 10 MG TABLET. PO SCH (08:34)
[2017-11-29] MEDS: LISINOPRIL 20 MG TABLET PO SCH (08:34)
[2017-11-29] MEDS: NEOMY/BACITR/POLYMYXIN OINT PACKET. TP SCH (08:35)
--- NOTE | 2017-11-29 11:00 | PN ---
DATE: 11/24/2017 PSYCHIATRIC PROGRESS NOTE This late entry of 11/24/2017 covers elements not covered in my initial note for 11/24/2017. SUBJECTIVE: I met with the patient evening of 11/24/2017 and staffed at a treatment team meeting with the entire team earlier in the day on 11/24/2017. The patient slept 8 hours, remains confused, oblivious of her surroundings with intermittent hallucinations. REVIEW OF SYSTEMS: No CV, , pulmonary, eye, ENT system symptoms on review. Reliability poor. At times, she is having crying and laughing episodes. MENTAL STATUS EXAM: Oriented to herself. Insight, judgment, recent and remote memory, attention, concentration, fund of knowledge poor, consistent with her diagnosis mentioned in my initial note. IMPRESSION: Major neurocognitive disorder, Alzheimer, vascular with depression, delusion, behavioral disturbance. Rest unchanged. PLAN: Increase Risperdal from 0.125 mg at bedtime to p.o. 0.25 mg at bedtime. Rest unchanged per from initial note. MAN Ke MURRAY MD DR: CHRISTINA/elizabeth JOB#: [id number] / [id number]
--- NOTE | 2017-11-29 11:02 | PN ---
DATE: 11/27/2017 This is a late entry, covers the elements not covered in my initial note, 11/27/2017. SUBJECTIVE: The patient slept 4-1/2 hours previous evening, compliant with medications, was assessed by [facility] in preparation for her returning there. She takes her medications in juice. REVIEW OF SYSTEMS: No CV, , pulmonary, eye, ENT system symptoms on review. Reliability poor, pleasant, smiling as I met with her. MENTAL STATUS EXAM: Oriented to herself. Insight, judgment, recent and remote memory, attention, concentration, fund of knowledge poor, consistent with her diagnosis as mentioned in my initial note. IMPRESSION: Major neurocognitive disorder, Alzheimer, vascular with depression, delusion, behavioral disturbance. PLAN: Continue current psychotropics for now. MAN Ke MURRAY MD DR: CHRISTINA/elizabeth JOB#: [id number] / [id number]
--- NOTE | 2017-11-29 18:17 | PDOC ---
Exam Note: Saeed Note: Please also refer to the separate dictated note~for this date of service dictated separately.~Patient seen individually. Discussed the patient with Nursing staff reviewed the chart.~Reviewed interim history and current functioning. Reviewed vital signs,~Labs/ Radiology~and current medications noted below. Continue current treatment with the changes noted in the dictated addendum note Assessment: Vital Signs: Vital Signs Date Time Temp Pulse Resp B/P (MAP) Pulse Ox O2 Delivery O2 Flow Rate FiO2 11/29/17 08:34 72 110/70 11/29/17 05:50 96.9 20 96 Room Air I&O Intake and Output 11/29/17 07:00 Intake Total 960 ml Balance 960 ml Intake Oral 960 ml # Voids 1 # Bowel Movements 1 Current Medications: Meds: Current Medications Trimethoprim/ Sulfamethoxazole (Bactrim Ds) 1 tab 1X ONCE PO Last administered on 11/10/17 16:57; Start 11/10/17 at 17:00; Stop 11/10/17 at 17 :01; Status DC Trimethoprim/ Sulfamethoxazole (Bactrim Ds) 1 tab STK-MED ONCE PO ; Start 11/10 at 16:56; Stop 11/10/17 at 16:57; Status DC Acetaminophen (Tylenol) 650 mg PRN Q6HRS PRN PO PAIN / TEMP; Start 11/10/17 at 17:30; Stop 11/29/17 at 14:53; Status DC Multi-Ingredient Ointment (Analgesic [place]) 1 lian PRN QID PRN TP MUSCLE PAIN; Start 11/10/17 at 17:30; Stop 11/29/17 at 14:53; Status DC Al Hydroxide/Mg Hydroxide (Mylanta Plus Xs) 15 ml PRN AFTMEALHC PRN PO DYSPEPSIA; Start 11/10/17 at 17:30; Stop 11/29/17 at 14:53; Status DC Magnesium Hydroxide (Milk Of Magnesia) 2,400 mg PRN QHS PRN PO CONSTIPATION Last administered on 11/21/17t 11:32; Start 11/10/17 at 17:30; Stop 11/29/17 at 14:53; Status DC Acetaminophen (Tylenol) take 1-2 tablets PRN ... PRN QID PRN PO PAIN; Start at 18:00; Stop 11/10/17 at 18:24; Status DC Atorvastatin Calcium (Lipitor) 10 mg QHS PO Last administered on 11/28/17 20:45 ; Start 11/10/17 at 21:00; Stop 11/29/17 at 14:53; Status DC Buspirone HCl (Buspar) 10 mg BID PO Last administered on 11/16/17 09:36; Start 11/10/17 at 21:00; Stop 11/16/17 at 16:52; Status DC Donepezil HCl (Aricept) 10 mg DAILY PO Last administered on 11/29/17 08:34; Start 11/11/17 at 09:00; Stop 11/29/17 at 14:53; Status DC Lisinopril (Prinivil) 20 mg DAILY PO Last administered on 11/29/17 08:34; Start 11/11/17 at 09:00; Stop 11/29/17 at 14:53; Status DC Lorazepam (Ativan) 0.5 mg PRN Q6HRS PRN PO AGITATION Last administered on 11/15 16:23; Start 11/10/17 at 18:00; Stop 11/29/17 at 14:53; Status DC Memantine (Namenda) 10 mg BID PO Last administered on 11/29/17 08:34; Start at 21:00; Stop 11/29/17 at 14:53; Status DC Mirtazapine (Remeron) 15 mg QHS PO Last administered on 11/28/17 20:40; Start 11/10/17 at 21:00; Stop 11/29/17 at 14:53; Status DC Citalopram Hydrobromide (CeleXA) 40 mg DAILY PO ; Start 11/11/17 at 09:00; Stop 11/11/17 at 09:00; Status DC Acetaminophen (Tylenol) 325 mg PRN Q6HRS PRN PO PAIN; Start 11/10/17 at 18:30 ; Stop 11/29/17 at 14:53; Status DC Sertraline HCl (Zoloft) 50 mg DAILY PO Last administered on 11/16/17 09:36; Start 11/11/17 at 09:00; Stop 11/16/17 at 18:13; Status DC Vitamin D (Vitamin D3) 50,000 unit WEEKLY PO ; Start 11/11/17 at 18:00; Stop 11/11/17 at 18:20; Status DC Vitamin D (Vitamin D3) 50,000 unit WEEKLY PO Last administered on 11/26/17at 09: 33; Start 11/12/17 at 09:00; Stop 11/29/17 at 14:53; Status DC Trazodone HCl (Desyrel) 50 mg PRN QHS PRN PO INSOMNIA, MAY REPEAT X1 Last administered on 11/18/17t 22:26; Start 11/12/17 at 18:00; Stop 11/29/17 at 14: 53; Status DC Cyanocobalamin (Vitamin B-12) 1,000 mcg DAILY PO Last administered on 11/29/17 08:34; Start 11/17/17 at 09:00; Stop 11/29/17 at 14:53; Status DC Buspirone HCl (Buspar) 10 mg TID PO Last administered on 11/29/17at 13:33; Start 11/16/17 at 21:00; Stop 11/29/17 at 14:53; Status DC Sertraline HCl (Zoloft) 75 mg DAILY PO Last administered on 11/29/17 08:34; Start 11/17/17 at 09:00; Stop 11/29/17 at 14:53; Status DC Risperidone (RisperDAL) 0.125 mg HS PO Last administered on 11/22/17at 19:56; Start 11/18/17 at 21:00; Stop 11/23/17 at 18:05; Status DC Risperidone (RisperDAL) 0.25 mg HS PO Last administered on 11/28/17at 20:43; Start 11/23/17 at 21:00; Stop 11/29/17 at 14:53; Status DC Neomycin/ Polymyxin/ Bacitracin (Triple Antibiotic Ointment) 1 pkt BID TP Last administered on 11/29/17at 08:35; Start 11/28/17 at 21:00; Stop 11/29/17 at 14:53; Status DC Active Scripts Active Reported Triple Antibiotic Ointment (Neomy Sulf/Bacitra/Polymyxin B) 1 Each Packet 1 Applic TP BID Trazodone Hcl 50 Mg Tablet 50 Mg PO PRN QHS PRN Risperdal (Risperidone) 0.25 Mg Tablet 0.25 Mg PO HS Zoloft (Sertraline Hcl) 50 Mg Tablet 75 Mg PO DAILY [place] (Menthol) 113 Gm Gel..gram. 1 Applic TP PRN QID PRN Milk Of Magnesia (Magnesium Hydroxide) 2,400 Mg/10 Ml Oral.susp 2,400 Mg PO PRN QHS PRN Maalox Maximum Strength Susp (Mag Hydrox/Al Hydrox/Simeth) 355 Ml Oral.susp 15 Ml PO PRN AFTMEALHC PRN Vitamin B-12 (Cyanocobalamin (Vitamin B-12)) 1,000 Mcg Tablet 1,000 Mcg PO DAILY D3-50 (Cholecalciferol (Vitamin D3)) 50,000 Unit Capsule 50,000 Unit PO QFR Tylenol (Acetaminophen) 325 Mg Tablet 325 Mg PO PRN Q6HRS PRN Ativan (Lorazepam) 0.5 Mg Tablet 0.5 Mg PO PRN Q6HRS PRN Tylenol (Acetaminophen) 325 Mg Tablet 650 Tab PO PRN Q6HRS PRN Mirtazapine 15 Mg Tablet 15 Mg PO QHS Namenda (Memantine Hcl) 10 Mg Tablet 10 Mg PO BID Buspirone Hcl 10 Mg Tablet 10 Mg PO TID Lisinopril 20 Mg Tablet 20 Mg PO DAILY Donepezil Hcl 10 Mg Tablet 10 Mg PO DAILY Atorvastatin Calcium 10 Mg Tablet 10 Mg PO QHS I have reviewed the current psychotropics carefully including drug interactions. Risk benefit ratio favors no change other than as noted in my dictated progress note. Diagnosis: Problems: (1) Dementia of the Alzheimer's type with early onset with behavioral disturbance (2) Dementia in Alzheimer's disease with delusions (3) Dementia, vascular, with delusions (4) Dementia, vascular, with depression (5) Impulse control disorder (6) Anxiety disorder JAKUB MURRAY MD Nov 29, 2017 18:17
--- NOTE | 2017-11-30 09:25 | PN ---
DATE: 11/28/2017 PSYCHIATRIC PROGRESS NOTE This is a late entry 11/28/2017, covers elements not covered in my initial note 11/28/2017. SUBJECTIVE: I met with the patient the evening of 11/28/2017. The patient remains confused, but pleasant, cooperative, not aggressive, less psychotic. REVIEW OF SYSTEMS: No CV, , pulmonary, eye, ENT system symptoms on review. Reliability poor. MENTAL STATUS EXAM: Oriented to herself. Insight, judgment, recent and remote memory, attention, concentration, fund of knowledge poor, consistent with her diagnoses mentioned in my initial note. IMPRESSION: Major neurocognitive disorder, Alzheimer, vascular with depression, delusion, behavioral disturbance. PLAN: Continue psychotropics mentioned in my initial note. MAN Ke MURRAY MD DR: CHRISTINA/elizabeth JOB#: [id number] / [id number]
--- NOTE | 2017-12-01 00:38 | DS ---
DATE OF DISCHARGE: 11/29/2017 DISCHARGE SUMMARY/PSYCHIATRIC PROGRESS NOTE This late entry for 11/29/2017 covers elements not covered in my initial note of 11/29/2017. REASON FOR ADMISSION: Please refer to the admission history for details. Briefly, the patient is a 62-year-old female referred to us from [facility] by her primary care physician on account of increased agitation, aggression, yelling, slapping people, destructive to property, refusing medications, hitting people unprovoked. This was within the context of her dementia, Alzheimer's, vascular with delusion, depression, behavioral disturbance, worsening psychotic symptoms and possible intellectual disability. SIGNIFICANT FINDINGS AND CLINICAL COURSE: Following admission, the patient was seen daily individually by myself, followed medically per Dr. Benavides/Dr Greer. The patient was quite psychotic. Further history from the sister indicated she would laugh into the mirrors and other behaviors reflective of her ongoing psychotic symptoms. Adjustments were made in her psychotropics. She seemed to respond to a combination of Zoloft 75 mg a day, Aricept 10 mg a day, BuSpar 10 mg 3 times a day, Namenda 10 mg b.i.d., Remeron 15 mg at bedtime, Ativan p.r.n., trazodone 50 mg at bedtime p.r.n., may repeat x 1 for insomnia, Risperdal was increased to 0.25 mg p.o. at bedtime with the gradual reduction of her psychotic symptoms prior to discharge. Prior to discharge on 11/29/2017, condition at discharge improved. REVIEW OF SYSTEMS: No CV, , pulmonary, eye, ENT system symptoms on review. Reliability poor. MENTAL STATUS EXAM: Oriented to herself. Insight, judgment, recent and remote memory, attention, concentration, fund of knowledge poor, consistent with her diagnosis. FINAL DIAGNOSES: Major neurocognitive disorder, Alzheimer, vascular with depression, delusion, behavioral disturbance; anxiety disorder, unspecified; impulse control disorder, unspecified, intellectual disability. Rest unchanged from her admission. DISCHARGE MEDICATIONS: Please refer to the EMRAD. DISCHARGE INSTRUCTIONS: Outpatient psychiatric and medical followup at the [facility]. JAKUB MURRAY MD DR: CHRISTINA/elizabeth JOB#: [id number] / [id number]
== END 2017-11-29 14:00 | disposition home or self-care (01) | DRG 884 ==
LOC: ER 14:08 → GEROPSY 16:53 → ER 16:58 → GEROPSY 16:58
PROVIDERS: ADMIT Psychiatry & Neurology Psychiatry; ATTEND Psychiatry & Neurology Psychiatry
DX: F01.51 Vascular dementia, unspecified severity, with behavioral disturbance (principal); G30.0 Alzheimer's disease with early onset; F02.81 Dementia in other diseases classified elsewhere, unspecified severity, with behavioral disturbance; N39.0 Urinary tract infection, site not specified; E78.5 Hyperlipidemia, unspecified; F32.9 Major depressive disorder, single episode, unspecified; D63.8 Anemia in other chronic diseases classified elsewhere; G47.00 Insomnia, unspecified; F22 Delusional disorders; F41.9 Anxiety disorder, unspecified; F63.9 Impulse disorder, unspecified; I10 Essential (primary) hypertension; G31.9 Degenerative disease of nervous system, unspecified; R29.6 Repeated falls; Z66 Do not resuscitate
CPT/HCPCS: 36415; 70450; 80053; 80061; 81001; 82306; 82607; 83036; 83540; 83550; 83735; 84436; 84443; 84480; 85025; 86593; 87086; 93005; 99285-25